=== PATIENT | female | born 1940 | race Caucasian/White ===

== ENCOUNTER → 2016-10-16 | Outpatient (RCR) | payer MEDICARE, MEDICAID ==
[~2016-10-16] MED LIST: ALLO100T PO; ASPI81TA PO; CALC1CAP31 PO; CALCTAB68 PO; CITA20TA4 PO; FERR325T PO; FURO40TA2 PO; LEVO75TA34 PO; LORA10TA2 PO; METO25TA74 PO; NEXI40CA PO; NIAC1TAB PO; POTA20TA PO; SIMV20TA2 PO; SITA50TAB PO; SYMB80INH INH; WARF-58 PO; ZONI25CA2 PO
== END ==
LOC: M PT 09:04
PROVIDERS: ATTEND Nurse Practitioner Adult Health
DX: Z51.89 Encounter for other specified aftercare (principal); M25.551 Pain in right hip; R26.81 Unsteadiness on feet; M79.651 Pain in right thigh
CPT/HCPCS: 97162; G8978; G8979

== ENCOUNTER → 2016-10-29 | Outpatient (REF) | payer MEDICARE, MEDICAID | END | disposition home or self-care (01) | LOC: M LAB REF 17:45 | PROVIDERS: ATTEND Internal Medicine Nephrology | DX: N39.0 Urinary tract infection, site not specified (principal) ==

== ENCOUNTER 2016-11-12 09:13 | Outpatient (RCR) | payer MEDICARE, MEDICAID | END 2016-11-13 | LOC: M PT 09:13 | PROVIDERS: ATTEND Nurse Practitioner Adult Health | DX: Z51.89 Encounter for other specified aftercare (principal); M79.651 Pain in right thigh; M25.551 Pain in right hip; R26.81 Unsteadiness on feet | CPT/HCPCS: 97110; G8978; G8979 ==

== ENCOUNTER 2016-11-22 09:15 | Outpatient (RCR) | payer MEDICARE, MEDICAID | END 2016-12-14 | LOC: M PT 09:15 | PROVIDERS: ATTEND Nurse Practitioner Adult Health | DX: Z51.89 Encounter for other specified aftercare (principal); M79.651 Pain in right thigh; M25.551 Pain in right hip; R26.81 Unsteadiness on feet ==

== ENCOUNTER 2017-06-15 10:55 | Emergency (ER) | payer MEDICARE, MEDICAID ==
[~2017-06-15] VITALS: Ht 154.9 cm; Wt 100.5 kg
[~2017-06-15 10:55] MED LIST changes: -ALBU17IN
[2017-06-15] MEDS ORDERED: ALBU17IN (11:15)
--- NOTE | 2017-06-15 12:36 | REP ---
Chest two views HISTORY: Cough Comparison: 08/08/2016 The lungs are clear. The heart is upper limits of normal in size. The pulmonary vasculature is normal in appearance. The bony structure is intact. IMPRESSION: No acute disease. Signed by Allen Floyd MD 06/15/2017 12:28 P
[2017-06-15 13:23] VITALS: BP 148/74
== END 2017-06-15 13:24 | disposition home or self-care (01) ==
LOC: M ED 10:55
DX: B34.9 Viral infection, unspecified (principal); E11.9 Type 2 diabetes mellitus without complications; I50.9 Heart failure, unspecified; E03.9 Hypothyroidism, unspecified; E55.9 Vitamin D deficiency, unspecified; Z86.73 Personal history of transient ischemic attack (TIA), and cerebral infarction without residual deficits; Z99.3 Dependence on wheelchair; Z79.899 Other long term (current) drug therapy; Z79.82 Long term (current) use of aspirin; Z79.01 Long term (current) use of anticoagulants; Z79.84 Long term (current) use of oral hypoglycemic drugs; Z87.891 Personal history of nicotine dependence

== ENCOUNTER → 2017-06-15 | Outpatient (CLI) | payer MEDICARE, MEDICAID ==
[~2017-06-15] MED LIST changes: +ALBU17IN; +FERR1TAB8 PO; -FERR325T PO; +METO1TAB32 PO; -METO25TA74 PO
[2017-06-15 13:16] LABS: BASO % 0.2 % (0.0-1.0); EOS # 0.3 10^3/uL (0.0-0.50); EOS % 4.4 % (0.0-3.0); IMMATURE GRANULOCYTE % 0.3 % (0-0); LYMPH # 1.5 10^3/uL (1.5-4.5); LYMPH % 23.6 % (24.0-44.0); MEAN CORPUSCULAR HEMOGLOBIN 38.7 pg (27.0-33.0); MEAN CORPUSCULAR HGB CONC 33.7 g/dl (32.0-36.5); MONO # 0.3 10^3/uL (0.0-0.8); MONO % 5.4 % (0.0-5.0); NEUTROPHILS # 4.2 10^3/uL (1.8-7.7); NEUTROPHILS % 66.1 % (36.0-66.0); PLATELET COUNT, AUTOMATED 156 10^3/uL (150-450); RED CELL DISTRIBUTION WIDTH 13.3 % (11.5-14.5); WHITE BLOOD COUNT 6.3 10^3/uL (4.0-10.0)
[2017-06-15 13:25] LABS: MEAN CORPUSCULAR VOLUME 114.9 fl (80.0-96.0)
[2017-06-15 13:26] LABS: ADD MORPHOLOGY? YES
[2017-06-15 13:44] LABS: ALBUMIN 3.4 GM/DL (3.2-5.2); BILIRUBIN,TOTAL 0.7 MG/DL (0.2-1.0); CALCIUM LEVEL 8.9 MG/DL (8.8-10.2); CREATININE FOR GFR 1.06 MG/DL (0.55-1.02); FREE T4 1.37 NG/DL (0.76-1.46); GLOMERULAR FILTRATION RATE 53.7 (>39); POTASSIUM SERUM 4.2 MEQ/L (3.5-5.1); TOTAL PROTEIN 6.8 GM/DL (6.4-8.2)
[2017-06-15 14:52] LABS: ANISOCYTOSIS 2+
== END ==
LOC: M LAB 12:32
PROVIDERS: ATTEND Internal Medicine Cardiovascular Disease
DX: E11.9 Type 2 diabetes mellitus without complications (principal); E03.9 Hypothyroidism, unspecified

== ENCOUNTER 2017-08-29 15:11 | Emergency (ER) | payer MEDICARE, MEDICAID ==
[~2017-08-29] VITALS: Ht 167.6 cm; Wt 99.5 kg
[~2017-08-29 15:11] MED LIST changes: +ALBU17IN
[2017-08-29] MEDS ORDERED: NORCO, ANEXSIA 5/325MG TABLET (HYDROcodone/ACETAMINOPHEN) PO ONE (15:45)
--- NOTE | 2017-08-29 16:56 | REP ---
LEFT KNEE, FIVE VIEWS: Five views of the left knee performed. There is no acute fracture or dislocation. There is mild lateral patellofemoral compartment narrowing with subchondral sclerosis. There is moderately severe medial joint space narrowing with subchondral sclerosis. There is mild to moderate spurring at the margins of the joint. There does appear to be a moderate to large joint effusion. IMPRESSION: Degenerative changes. No acute fracture or dislocation. Large joint effusion. Signed by Holden Ayala MD 08/30/2017 04:54 P
[2017-08-29] MEDS ORDERED: NORCOTAB PO (16:57)
--- NOTE | 2017-08-29 16:57 | REP ---
RIGHT HAND SERIES: Four views of the right hand are performed. There is no acute fracture or dislocation. There is severe narrowing and spurring at the joint between the trapezium and base of first metacarpal with mild lateral subluxation of the base of the first metacarpal. There is mild diffuse narrowing at the metacarpal phalangeal joints. There is moderately severe diffuse narrowing of the proximal and distal interphalangeal joints with mild subchondral sclerosis and moderate spurring. There is an old fracture of the 4th proximal phalanx which has healed. IMPRESSION: Degenerative changes, no acute fracture or dislocation. Signed by Holden Ayala MD 08/30/2017 04:54 P
[2017-08-29 17:26] VITALS: BP 135/61
[2017-08-29] MEDS ORDERED: NORCO 5/325MG TABLET (BULK FOR ED) PO ONE (17:45)
[2017-08-30] MEDS ORDERED: BUSP5TA (16:02)
== END 2017-08-29 18:24 | disposition home or self-care (01) ==
LOC: M ED 15:11
DX: S80.02XA Contusion of left knee, initial encounter (principal); S60.011A Contusion of right thumb without damage to nail, initial encounter; V00.831A Fall from motorized mobility scooter, initial encounter; Y92.410 Unspecified street and highway as the place of occurrence of the external cause; Y93.89 Activity, other specified; Y99.8 Other external cause status; I11.0 Hypertensive heart disease with heart failure; E11.9 Type 2 diabetes mellitus without complications; I50.9 Heart failure, unspecified; G47.30 Sleep apnea, unspecified; Z91.19 Patient's noncompliance with other medical treatment and regimen; Z86.73 Personal history of transient ischemic attack (TIA), and cerebral infarction without residual deficits; Z79.01 Long term (current) use of anticoagulants; Z79.899 Other long term (current) drug therapy; Z79.82 Long term (current) use of aspirin; Z79.84 Long term (current) use of oral hypoglycemic drugs; Z87.891 Personal history of nicotine dependence

== ENCOUNTER 2017-08-30 15:52 | Emergency (ER) | payer MEDICARE, MEDICAID ==
[~2017-08-30] VITALS: Ht 165.1 cm; Wt 99.5 kg
[~2017-08-30 15:52] MED LIST changes: +NORCOTAB PO
[2017-08-30] MEDS ORDERED: BUSP5TA (16:02)
[2017-08-30] MEDS ORDERED: NORCO, ANEXSIA 5/325MG TABLET (HYDROcodone/ACETAMINOPHEN) PO ONE (17:00)
--- NOTE | 2017-08-30 17:15 | REP ---
AP pelvis and left hip: AP pelvis single view: There is no pelvic fracture. There are surgical clips in the left femoral area. The sacroiliac articulations are unremarkable. There are a few phleboliths. Impression: Negative AP pelvis Left hip two views: Comparison is 12/11/2013. There is demineralization. Joint spaces unremarkable. There is no femoral head deformity. No fracture or dislocation. There are surgical clips in the left femoral area. Impression: Negative left hip. Signed by Holden Colby MD 08/30/2017 05:04 P
[2017-08-30 17:23] VITALS: BP 172/72
== END 2017-08-30 18:36 | disposition home or self-care (01) ==
LOC: M ED 15:52
DX: M25.552 Pain in left hip (principal); S80.02XA Contusion of left knee, initial encounter; W01.0XXA Fall on same level from slipping, tripping and stumbling without subsequent striking against object, initial encounter; Y92.410 Unspecified street and highway as the place of occurrence of the external cause; Y93.89 Activity, other specified; Y99.8 Other external cause status; E11.9 Type 2 diabetes mellitus without complications; I11.0 Hypertensive heart disease with heart failure; I50.9 Heart failure, unspecified; J45.909 Unspecified asthma, uncomplicated; E03.9 Hypothyroidism, unspecified; R51 Headache; Z86.73 Personal history of transient ischemic attack (TIA), and cerebral infarction without residual deficits; Z87.440 Personal history of urinary (tract) infections; Z79.899 Other long term (current) drug therapy; Z79.82 Long term (current) use of aspirin; Z79.84 Long term (current) use of oral hypoglycemic drugs; Z79.01 Long term (current) use of anticoagulants

== ENCOUNTER → 2017-09-13 | Outpatient (REF) | payer MEDICARE, MEDICAID ==
[2017-09-17 13:57] LABS: FOLATE 13.2 NG/ML; VITAMIN B12 LEVEL 127 PG/ML
[2017-09-17 13:59] LABS: FERRITIN 241 NG/ML (8-252); PERCENT SATURATION 23.4 % (13.2-45.0); TOTAL IRON BINDING CAPACITY 274 UG/DL (250-450)
== END ==
LOC: M LAB REF 13:14
DX: D64.9 Anemia, unspecified (principal)
CPT/HCPCS: 82746

== ENCOUNTER → 2018-01-28 | Outpatient (CLI) | payer MEDICARE, MEDICAID ==
[2018-01-28 10:38] LABS: BASO % 0.1 % (0.0-1.0); EOS # 0.2 10^3/uL (0.0-0.50); EOS % 2.5 % (0.0-3.0); HEMATOCRIT 35.5 % (36.0-47.0); IMMATURE GRANULOCYTE % 0.3 % (0-3.0); LYMPH # 1.2 10^3/uL (1.5-4.5); LYMPH % 18.2 % (24.0-44.0); MEAN CORPUSCULAR HEMOGLOBIN 39.6 pg (27.0-33.0); MEAN CORPUSCULAR HGB CONC 33.8 g/dl (32.0-36.5); MONO # 0.4 10^3/uL (0.0-0.8); MONO % 5.7 % (0.0-5.0); NEUTROPHILS % 73.2 % (36.0-66.0); PLATELET COUNT, AUTOMATED 166 10^3/uL (150-450); RED BLOOD COUNT 3.03 10^6/uL (4.00-5.40); RED CELL DISTRIBUTION WIDTH 13.2 % (11.5-14.5); WHITE BLOOD COUNT 6.8 10^3/uL (4.0-10.0)
[2018-01-28 10:43] LABS: MEAN CORPUSCULAR VOLUME 117.2 fl (80.0-96.0); POSITIVE MORPH POS FLAG
[2018-01-28 10:52] LABS: ESTIMATED AVERAGE GLUCOSE 126 MG/DL (60-110)
[2018-01-28 11:08] LABS: TOTAL 25(OH) VITAMIN D 39.7 NG/ML (30.0-100.0)
[2018-01-28 11:09] LABS: ALBUMIN 3.6 GM/DL (3.2-5.2); ALBUMIN/GLOBULIN RATIO 0.92 (1.00-1.93); ALKALINE PHOSPHATASE 58 U/L (45-117); ALT/SGPT 13 U/L (12-78); ANION GAP 7 MEQ/L (8-16); AST/SGOT 19 U/L (7-37); BILIRUBIN,TOTAL 0.6 MG/DL (0.2-1.0); BLOOD UREA NITROGEN 31 MG/DL (7-18); CARBON DIOXIDE LEVEL 31 MEQ/L (21-32); CHLORIDE LEVEL 105 MEQ/L (98-107); CHOLESTEROL LEVEL 98 MG/DL (<200); CHOLESTEROL RISK RATIO 2.333 (<5); CREATININE FOR GFR 1.55 MG/DL (0.55-1.30); FERRITIN 154 NG/ML (8-252); FREE T4 1.23 NG/DL (0.76-1.46); GLOMERULAR FILTRATION RATE 34.5 (>39); GLUCOSE, FASTING 94 MG/DL (70-100); HDL CHOLESTEROL 42 MG/DL (>40); IRON (FE) 100 UG/DL (50-170); LDL CHOLESTEROL 31.2 MG/DL (<100); NON-HDL-C 56 MG/DL; PERCENT SATURATION 32.9 % (13.2-45.0); POTASSIUM SERUM 4.4 MEQ/L (3.5-5.1); SODIUM LEVEL 143 MEQ/L (136-145); TOTAL IRON BINDING CAPACITY 304 UG/DL (250-450); TOTAL PROTEIN 7.5 GM/DL (6.4-8.2); TRIGLYCERIDES LEVEL 124 MG/DL (<150)
== END ==
LOC: M LAB 09:15
DX: E03.9 Hypothyroidism, unspecified (principal); E55.9 Vitamin D deficiency, unspecified; E78.00 Pure hypercholesterolemia, unspecified; D64.9 Anemia, unspecified; Z79.01 Long term (current) use of anticoagulants; N81.3 Complete uterovaginal prolapse; Z79.899 Other long term (current) drug therapy; E11.9 Type 2 diabetes mellitus without complications; M10.9 Gout, unspecified; N25.81 Secondary hyperparathyroidism of renal origin
CPT/HCPCS: 83550

== ENCOUNTER → 2018-01-28 | Outpatient (REF) | payer MEDICARE, MEDICAID ==
[2018-01-28 18:52] LABS: URIC ACID 5.5 MG/DL (2.6-6.0)
[2018-01-28 19:24] LABS: PTH INTACT 52.4 PG/ML (18.5-88.0)
== END ==
LOC: M LAB REF 18:29
DX: M10.9 Gout, unspecified (principal); N25.81 Secondary hyperparathyroidism of renal origin

== ENCOUNTER 2018-03-11 18:09 | Inpatient (IN) | payer MEDICARE, MEDICAID ==
[2018-03-11] MEDS: IPRATROPIUM 0.5MG/ALBUTEROL 2.5MG INH SOL UD 3ML (DUONEB)(J7620) NEB (18:58)
[2018-03-11] MEDS: ALBUTEROL SULFATE 2.5 MG/0.5 ML INH NEB SOLN INH (18:59)
[2018-03-11 19:02] LABS: ABG O2 SATURATION 98.4 % (95.0-99.0); ABG PARTIAL PRESSURE CO2 42.9 mmHg (35.0-45.0); ABG PARTIAL PRESSURE O2 119.5 mmHg (75.0-100.0); ABG STANDARD HCO3 25.4 MEQ/L (22.0-26.0); ABG TOTAL CO2 27.3 MEQ/L (23.0-31.0)
[2018-03-11 19:03] LABS: BASO % 0.1 % (0.0-1.0); EOS # 0.1 10^3/uL (0.0-0.50); EOS % 1.1 % (0.0-3.0); HEMATOCRIT 36.9 % (36.0-47.0); HEMOGLOBIN 12.3 g/dl (12.0-15.5); IMMATURE GRANULOCYTE % 0.4 % (0-3.0); LYMPH # 1.3 10^3/uL (1.5-4.5); MEAN CORPUSCULAR HEMOGLOBIN 38.6 pg (27.0-33.0); MEAN CORPUSCULAR HGB CONC 33.3 g/dl (32.0-36.5); MONO # 0.8 10^3/uL (0.0-0.8); MONO % 7.4 % (0.0-5.0); NEUTROPHILS # 7.9 10^3/uL (1.8-7.7); PLATELET COUNT, AUTOMATED 224 10^3/uL (150-450); RED BLOOD COUNT 3.19 10^6/uL (4.00-5.40); WHITE BLOOD COUNT 10.1 10^3/uL (4.0-10.0)
[2018-03-11] MEDS: methylPREDNISolone INJ 125 MG/2 ML VIAL (J2930) IV (19:04)
[2018-03-11 19:06] LABS: ADD MORPHOLOGY? YES; MEAN CORPUSCULAR VOLUME 115.7 fl (80.0-96.0); POSITIVE MORPH POS FLAG
[2018-03-11 19:15] LABS: INR 1.89; PROTHROMBIN TIME 22.3 SECONDS (12.4-14.5)
[2018-03-11 19:31] LABS: LACTIC ACID SEPSIS PROTOCOL 1.2 MMOL/L (0.4-2.0)
[2018-03-11 19:33] LABS: ALBUMIN 3.7 GM/DL (3.2-5.2); ALBUMIN/GLOBULIN RATIO 0.95 (1.00-1.93); ALKALINE PHOSPHATASE 70 U/L (45-117); ALT/SGPT 16 U/L (12-78); ANION GAP 10 MEQ/L (8-16); AST/SGOT 22 U/L (7-37); BILIRUBIN,DIRECT 0.3 MG/DL (0.0-0.2); BILIRUBIN,TOTAL 0.8 MG/DL (0.2-1.0); BLOOD UREA NITROGEN 36 MG/DL (7-18); CALCIUM LEVEL 9.2 MG/DL (8.8-10.2); CARBON DIOXIDE LEVEL 28 MEQ/L (21-32); CHLORIDE LEVEL 104 MEQ/L (98-107); CPK CREATINE PHOSPHOKINASE 56 U/L (26-192); CREATININE FOR GFR 1.86 MG/DL (0.55-1.30); GLUCOSE, FASTING 128 MG/DL (70-100); LIPASE 174 U/L (73-393); POTASSIUM SERUM 4.6 MEQ/L (3.5-5.1); SODIUM LEVEL 142 MEQ/L (136-145); THYROXINE (T4) 15.1 UG/DL (4.5-12.0); TOTAL PROTEIN 7.6 GM/DL (6.4-8.2); TROPONIN I < 0.02 NG/ML (< 0.10)
[2018-03-11 19:39] LABS: CK-MB VALUE MASS < 1.0 NG/ML (<3.6); MB/CK RELATIVE INDEX 1.78 (< OR =4); NT-PRO BNP 621 PG/ML (<450); PLATELET ESTIMATE NORMAL (NORMAL)
[2018-03-11 19:40] LABS: PLATELET CLUMPS SMALL AMT
[2018-03-11] MEDS: HumaLOG INSULIN (NovoLOG) PER UNIT SC (21:00)
[2018-03-11] MEDS: busPIRone 5 MG TAB PO (21:00)
[2018-03-11] MEDS ORDERED: NORCO, ANEXSIA 5/325MG TABLET (HYDROcodone/ACETAMINOPHEN) As Ordered (21:00)
[2018-03-11] MEDS: NIACIN SR (NIASPAN) 500 MG TAB PO (21:00)
[2018-03-11] MEDS: NORCO, ANEXSIA 5/325MG TABLET (HYDROcodone/ACETAMINOPHEN) PO (21:04)
[2018-03-11] MEDS: FUROSEMIDE 40 MG/4 ML VIAL (J1940) IV (21:05)
[2018-03-11] MEDS: ADACEL/BOOSTRIX VACCINE (DIPHTH/PERTUSS/ACELL/TETANUS)0.5ML SYR (90715) IM (21:05)
[2018-03-11] MEDS ORDERED: ISOVUE-370 76% 100ML VIAL (Q9967) As Ordered (21:55)
[2018-03-11] MEDS ORDERED: MORPHINE 4 MG/ML 1ML VIAL/SYRINGE (J2270) IV (23:15)
[2018-03-11] MEDS ORDERED: ACETAMINOPHEN TAB 650MG DOSE (2X325MG) PO (23:15)
[2018-03-11] MEDS ORDERED: DEXTROSE 50% 50 ML SYRINGE IV (23:45)
[2018-03-11] MEDS ORDERED: GLUCOSE 4 GM CHEW TABLET PO (23:45)
[2018-03-11] MEDS ORDERED: GLUCAGON FOR INJ 1 MG VIAL (J1610) SC (23:45)
[2018-03-12] MEDS: SENOKOT S TAB PO ×3 (00:38→21:10)
[2018-03-12] MEDS: DOXYCYCLINE HYCLATE 100 MG TAB PO ×3 (00:38→21:10)
[2018-03-12] MEDS: FERROUS SULFATE 325MG TAB PO ×3 (00:38→21:10)
[2018-03-12] MEDS: SIMVASTATIN 20 MG TAB PO ×2 (00:38→21:10)
[2018-03-12 05:58] LABS: ANION GAP 9 MEQ/L (8-16); BLOOD UREA NITROGEN 37 MG/DL (7-18); CALCIUM LEVEL 9.6 MG/DL (8.8-10.2); CARBON DIOXIDE LEVEL 30 MEQ/L (21-32); CHLORIDE LEVEL 101 MEQ/L (98-107); GLUCOSE, FASTING 190 MG/DL (70-100); POTASSIUM SERUM 4.1 MEQ/L (3.5-5.1); SODIUM LEVEL 140 MEQ/L (136-145)
[2018-03-12] MEDS: methylPREDNISolone INJ 40 MG/1 ML VIAL (J2920) IV ×2 (06:45→18:06)
[2018-03-12] MEDS: LEVOTHYROXINE 100MCG TABLET (0.1MG) PO (06:45)
[2018-03-12] MEDS: IPRATROPIUM 0.5MG/ALBUTEROL 2.5MG INH SOL UD 3ML (DUONEB)(J7620) NEB ×3 (07:38→20:00)
[2018-03-12] MEDS: HumaLOG INSULIN (NovoLOG) PER UNIT SC ×4 (08:43→20:18)
[2018-03-12] MEDS: SITagliptin 50 MG TAB (JANUVIA) PO (08:43)
[2018-03-12] MEDS: busPIRone 5 MG TAB PO ×2 (08:43→21:10)
[2018-03-12] MEDS: RIVAROXABAN 15 MG TAB (XARELTO) PO (08:44)
[2018-03-12] MEDS: CALCITRIOL 0.25 MCG CAP (S0169) PO (08:44)
[2018-03-12] MEDS: ALLOPURINOL 100 MG TAB PO (08:44)
[2018-03-12] MEDS: ASPIRIN 81 MG ENTERIC TAB PO (08:44)
[2018-03-12] MEDS: METOPROLOL TART 25 MG TABLET PO (08:44)
[2018-03-12] MEDS: SPIRONOLACTONE 25 MG TAB PO (08:44)
[2018-03-12] MEDS: CitaloPRAM (CeleXA) 20 MG TAB PO (08:44)
[2018-03-12] MEDS: amLODIPine 5 MG TAB PO (08:45)
[2018-03-12] MEDS: PANTOPRAZOLE 40MG TAB (PROTONIX) PO (08:45)
[2018-03-12] MEDS: LORATADINE 10 MG TAB PO (08:45)
[2018-03-12 10:36] LABS: KETONE, URINE AUTO RFX NEGATIVE (NEGATIVE); LEUKOCYTE ESTERASE UR AUTO RFX NEGATIVE (NEGATIVE); NITRITE, URINE AUTO RFX NEGATIVE (NEGATIVE); RBC, URINE AUTO RFX 0 /HPF (0-3); SPECIFIC GRAVITY UR AUTO RFX 1.021 (1.002-1.035); SQUAM EPITHELIAL CELL UR AURFX 1 /HPF (0-6); WBC, URINE AUTO RFX 0 /HPF (0-3)
[2018-03-12 11:53] LABS: BEDSIDE GLUCOSE 159 MG/DL (83-110)
[2018-03-12] MEDS: ACETAMINOPHEN 500 MG TAB PO ×3 (12:00→23:47)
[2018-03-12 16:55] LABS: BEDSIDE GLUCOSE 196 MG/DL (83-110)
[2018-03-12 20:07] LABS: BEDSIDE GLUCOSE 187 MG/DL (83-110)
[2018-03-12] MEDS: SYMBICORT 80/4.5MCG INHALER 6GM INH (20:34)
[2018-03-12] MEDS: NIACIN SR (NIASPAN) 500 MG TAB PO (21:10)
[2018-03-12] MEDS: PERCOCET 5MG/325MG TAB PO (21:16)
[2018-03-13] MEDS: LEVOTHYROXINE 100MCG TABLET (0.1MG) PO (06:16)
[2018-03-13] MEDS: methylPREDNISolone INJ 40 MG/1 ML VIAL (J2920) IV ×2 (06:16→17:57)
[2018-03-13] MEDS: ACETAMINOPHEN 500 MG TAB PO ×3 (06:17→17:57)
[2018-03-13 06:30] LABS: ANION GAP 11 MEQ/L (8-16); BLOOD UREA NITROGEN 49 MG/DL (7-18); CALCIUM LEVEL 9.3 MG/DL (8.8-10.2); CARBON DIOXIDE LEVEL 29 MEQ/L (21-32); CHLORIDE LEVEL 102 MEQ/L (98-107); CREATININE FOR GFR 1.77 MG/DL (0.55-1.30); GLOMERULAR FILTRATION RATE 29.6 (>39); GLUCOSE, FASTING 151 MG/DL (70-100); POTASSIUM SERUM 4.3 MEQ/L (3.5-5.1); SODIUM LEVEL 142 MEQ/L (136-145)
[2018-03-13 07:38] LABS: HEMATOCRIT 32.9 % (36.0-47.0); HEMOGLOBIN 11.2 g/dl (12.0-15.5); MEAN CORPUSCULAR HEMOGLOBIN 38.8 pg (27.0-33.0); MEAN CORPUSCULAR VOLUME 113.8 fl (80.0-96.0); PLATELET COUNT, AUTOMATED 157 10^3/uL (150-450); RED BLOOD COUNT 2.89 10^6/uL (4.00-5.40); WHITE BLOOD COUNT 12.9 10^3/uL (4.0-10.0)
[2018-03-13 07:40] LABS: C REACTIVE PROTEIN QUANTITATIV 8.45 MG/DL (0.00-0.30)
[2018-03-13] MEDS: IPRATROPIUM 0.5MG/ALBUTEROL 2.5MG INH SOL UD 3ML (DUONEB)(J7620) NEB ×3 (08:00→20:00)
[2018-03-13] MEDS: RIVAROXABAN 15 MG TAB (XARELTO) PO (08:46)
[2018-03-13] MEDS: amLODIPine 5 MG TAB PO (08:46)
[2018-03-13] MEDS: ASPIRIN 81 MG ENTERIC TAB PO (08:46)
[2018-03-13] MEDS: PANTOPRAZOLE 40MG TAB (PROTONIX) PO (08:46)
[2018-03-13] MEDS: SPIRONOLACTONE 25 MG TAB PO (08:46)
[2018-03-13] MEDS: ALLOPURINOL 100 MG TAB PO (08:47)
[2018-03-13] MEDS: SITagliptin 50 MG TAB (JANUVIA) PO (08:47)
[2018-03-13] MEDS: SENOKOT S TAB PO ×2 (08:47→21:13)
[2018-03-13] MEDS: DOXYCYCLINE HYCLATE 100 MG TAB PO ×2 (08:47→21:13)
[2018-03-13] MEDS: CitaloPRAM (CeleXA) 20 MG TAB PO (08:47)
[2018-03-13] MEDS: busPIRone 5 MG TAB PO ×2 (08:47→21:13)
[2018-03-13] MEDS: CALCITRIOL 0.25 MCG CAP (S0169) PO (08:47)
[2018-03-13] MEDS: METOPROLOL TART 25 MG TABLET PO (08:47)
[2018-03-13] MEDS: LORATADINE 10 MG TAB PO (08:47)
[2018-03-13] MEDS: FERROUS SULFATE 325MG TAB PO ×2 (08:47→21:13)
[2018-03-13] MEDS: HumaLOG INSULIN (NovoLOG) PER UNIT SC ×4 (08:48→21:00)
[2018-03-13 09:11] LABS: ERYTHROCYTE SEDIMENTATION RATE 67 mm/hr (0-30)
[2018-03-13] MEDS: SYMBICORT 80/4.5MCG INHALER 6GM INH ×2 (09:20→21:31)
[2018-03-13 11:41] LABS: BEDSIDE GLUCOSE 281 MG/DL (83-110)
[2018-03-13 16:59] LABS: BEDSIDE GLUCOSE 131 MG/DL (83-110)
[2018-03-13 20:07] LABS: BEDSIDE GLUCOSE 147 MG/DL (83-110)
[2018-03-13] MEDS: NIACIN SR (NIASPAN) 500 MG TAB PO (21:13)
[2018-03-13] MEDS: SIMVASTATIN 20 MG TAB PO (21:13)
[2018-03-14 05:49] LABS: HEMATOCRIT 31.6 % (36.0-47.0); HEMOGLOBIN 10.9 g/dl (12.0-15.5); MEAN CORPUSCULAR HEMOGLOBIN 38.9 pg (27.0-33.0); MEAN CORPUSCULAR HGB CONC 34.5 g/dl (32.0-36.5); MEAN CORPUSCULAR VOLUME 112.9 fl (80.0-96.0); PLATELET COUNT, AUTOMATED 192 10^3/uL (150-450); WHITE BLOOD COUNT 9.9 10^3/uL (4.0-10.0)
[2018-03-14 06:05] LABS: ANION GAP 7 MEQ/L (8-16); BLOOD UREA NITROGEN 59 MG/DL (7-18); CALCIUM LEVEL 9.2 MG/DL (8.8-10.2); CARBON DIOXIDE LEVEL 30 MEQ/L (21-32); CHLORIDE LEVEL 104 MEQ/L (98-107); CREATININE FOR GFR 1.84 MG/DL (0.55-1.30); GLOMERULAR FILTRATION RATE 28.3 (>39); GLUCOSE, FASTING 145 MG/DL (70-100); POTASSIUM SERUM 4.4 MEQ/L (3.5-5.1); SODIUM LEVEL 141 MEQ/L (136-145)
[2018-03-14] MEDS: LEVOTHYROXINE 100MCG TABLET (0.1MG) PO (06:23)
[2018-03-14] MEDS: ACETAMINOPHEN 500 MG TAB PO ×3 (06:23→12:11)
[2018-03-14] MEDS: methylPREDNISolone INJ 40 MG/1 ML VIAL (J2920) IV (06:23)
[2018-03-14] MEDS: DOXYCYCLINE HYCLATE 100 MG TAB PO (08:04)
[2018-03-14] MEDS: METOPROLOL TART 25 MG TABLET PO (08:04)
[2018-03-14] MEDS: SENOKOT S TAB PO (08:04)
[2018-03-14] MEDS: ASPIRIN 81 MG ENTERIC TAB PO (08:04)
[2018-03-14] MEDS: amLODIPine 5 MG TAB PO (08:04)
[2018-03-14] MEDS: CALCITRIOL 0.25 MCG CAP (S0169) PO (08:04)
[2018-03-14] MEDS: ALLOPURINOL 100 MG TAB PO (08:04)
[2018-03-14] MEDS: SPIRONOLACTONE 25 MG TAB PO (08:05)
[2018-03-14] MEDS: PANTOPRAZOLE 40MG TAB (PROTONIX) PO (08:05)
[2018-03-14] MEDS: RIVAROXABAN 15 MG TAB (XARELTO) PO (08:05)
[2018-03-14] MEDS: busPIRone 5 MG TAB PO (08:05)
[2018-03-14] MEDS: SITagliptin 50 MG TAB (JANUVIA) PO (08:05)
[2018-03-14] MEDS: CitaloPRAM (CeleXA) 20 MG TAB PO (08:05)
[2018-03-14] MEDS: LORATADINE 10 MG TAB PO (08:05)
[2018-03-14] MEDS: FERROUS SULFATE 325MG TAB PO (08:05)
[2018-03-14] MEDS: HumaLOG INSULIN (NovoLOG) PER UNIT SC ×2 (08:06→12:06)
[2018-03-14] MEDS: SYMBICORT 80/4.5MCG INHALER 6GM INH (08:15)
[2018-03-14] MEDS: IPRATROPIUM 0.5MG/ALBUTEROL 2.5MG INH SOL UD 3ML (DUONEB)(J7620) NEB ×2 (08:16→12:58)
[2018-03-14 11:27] LABS: BEDSIDE GLUCOSE 135 MG/DL (83-110)
== END 2018-03-14 14:23 | disposition home health service (06) | DRG 190 ==
LOC: M MSPAV 03-12 00:08 → M ED 18:09 → M ED INP 23:15
DX: J44.1 Chronic obstructive pulmonary disease with (acute) exacerbation (principal); J18.9 Pneumonia, unspecified organism; I50.32 Chronic diastolic (congestive) heart failure; I13.0 Hypertensive heart and chronic kidney disease with heart failure and stage 1 through stage 4 chronic kidney disease, or unspecified chronic kidney disease; Z68.41 Body mass index [BMI] 40.0-44.9, adult; M10.9 Gout, unspecified; M94.0 Chondrocostal junction syndrome [Tietze]; J44.0 Chronic obstructive pulmonary disease with (acute) lower respiratory infection; D50.9 Iron deficiency anemia, unspecified; E03.9 Hypothyroidism, unspecified; J30.9 Allergic rhinitis, unspecified; N18.3 Chronic kidney disease, stage 3 (moderate); E11.22 Type 2 diabetes mellitus with diabetic chronic kidney disease; E66.9 Obesity, unspecified; E78.5 Hyperlipidemia, unspecified; Z86.73 Personal history of transient ischemic attack (TIA), and cerebral infarction without residual deficits; Z95.820 Peripheral vascular angioplasty status with implants and grafts; Z90.710 Acquired absence of both cervix and uterus; Z87.891 Personal history of nicotine dependence; Z79.82 Long term (current) use of aspirin; Z79.84 Long term (current) use of oral hypoglycemic drugs; Z79.01 Long term (current) use of anticoagulants; Z79.899 Other long term (current) drug therapy

== ENCOUNTER → 2018-03-31 | Outpatient (REF) | payer MEDICARE, MEDICAID ==
[2018-04-01 14:31] LABS: FERRITIN 155 NG/ML (8-252); IRON (FE) 62 UG/DL (50-170); PERCENT SATURATION 24.7 % (13.2-45.0); TOTAL IRON BINDING CAPACITY 251 UG/DL (250-450)
== END ==
LOC: M LAB REF 13:47
DX: N18.3 Chronic kidney disease, stage 3 (moderate) (principal); D64.9 Anemia, unspecified
CPT/HCPCS: 83550

== ENCOUNTER 2018-04-06 13:16 | Emergency (ER) | payer MEDICARE, MEDICAID ==
[2018-04-06 14:27] LABS: HEMATOCRIT 33.8 % (36.0-47.0); HEMOGLOBIN 11.1 g/dl (12.0-15.5); MEAN CORPUSCULAR HEMOGLOBIN 38.4 pg (27.0-33.0); MEAN CORPUSCULAR HGB CONC 32.8 g/dl (32.0-36.5); PLATELET COUNT, AUTOMATED 232 10^3/uL (150-450); RED BLOOD COUNT 2.89 10^6/uL (4.00-5.40); RED CELL DISTRIBUTION WIDTH 12.7 % (11.5-14.5)
[2018-04-06 14:34] LABS: ANION GAP 8 MEQ/L (8-16); BLOOD UREA NITROGEN 35 MG/DL (7-18); CALCIUM LEVEL 9.8 MG/DL (8.8-10.2); CARBON DIOXIDE LEVEL 31 MEQ/L (21-32); CHLORIDE LEVEL 103 MEQ/L (98-107); CREATININE FOR GFR 1.91 MG/DL (0.55-1.30); GLOMERULAR FILTRATION RATE 27.1 (>39); GLUCOSE, FASTING 103 MG/DL (70-100); POTASSIUM SERUM 3.4 MEQ/L (3.5-5.1); SODIUM LEVEL 142 MEQ/L (136-145)
[2018-04-06 14:41] LABS: POSITIVE MORPH POS FLAG
[2018-04-06] MEDS: CLINDAMYCIN 150 MG CAP PO (15:34)
== END 2018-04-06 15:36 | disposition home or self-care (01) ==
LOC: M ED 13:16
DX: L03.116 Cellulitis of left lower limb (principal); E11.9 Type 2 diabetes mellitus without complications; I10 Essential (primary) hypertension; Z79.899 Other long term (current) drug therapy; Z79.2 Long term (current) use of antibiotics; Z79.82 Long term (current) use of aspirin; Z79.01 Long term (current) use of anticoagulants
CPT/HCPCS: 80048

== ENCOUNTER → 2018-09-12 | Outpatient (REF) | payer MEDICARE, MEDICAID ==
[~2018-09-12] MED LIST changes: +AMLO5TAB6 PO; +ASPI81CH40 PO; -ASPI81TA PO; +ASPI81TAEC PO; +BUSP5TA; +BUSP5TA PO; +CLEO300C2 PO; +DOXY100T PO; +FLON1SPR; +FURO20TA2 PO; +JANU100T PO; +KLOR20TA42 PO; +LORA-243 PO; -LORA10TA2 PO; +METO1TAB87 PO; -NIAC1TAB PO; +NIAC500T64 PO; -POTA20TA PO; +PRED10TA2 PO; +ROCA0.5C PO; +SPIR-10 PO; +SYNT100T PO; +XARE15TA PO
== END ==
LOC: M LAB REF 16:59
PROVIDERS: ATTEND Internal Medicine Nephrology
DX: N39.0 Urinary tract infection, site not specified (principal)

== ENCOUNTER 2018-10-18 12:49 | Emergency (ER) | payer MEDICARE, MEDICAID ==
[~2018-10-18] VITALS: Ht 157.5 cm; Wt 97.3 kg
[2018-10-18 14:00] LABS: HEMOGLOBIN 12.4 g/dl (12.0-15.5); MEAN CORPUSCULAR HEMOGLOBIN 35.4 pg (27.0-33.0); MEAN CORPUSCULAR HGB CONC 32.6 g/dl (32.0-36.5); MEAN CORPUSCULAR VOLUME 108.6 fl (80.0-96.0); PLATELET COUNT, AUTOMATED 299 10^3/uL (150-450); WHITE BLOOD COUNT 13.9 10^3/uL (4.0-10.0)
[2018-10-18] MEDS ORDERED: CYCLOBENZAPRINE 5MG TABLET PO ONE (14:00)
[2018-10-18 14:16] LABS: INR 2.03; PROTHROMBIN TIME 23.3 SECONDS (12.1-14.4)
[2018-10-18 14:17] LABS: PARTIAL THROMBOPLASTIN TIME 48.4 SECONDS (25.4-37.6)
--- NOTE | 2018-10-18 14:17 | REP ---
Clinical: Headache. Neck pain. Comparison: 03/11/2018 . Findings: The ventricles, sulci, and cisterns are normal in position and appearance. Ayala-white differentiation is maintained. No acute intracranial hemorrhage, mass/mass effect, pathology or trauma/injury. No evidence for acute infarction. No extra-axial fluid collection. Calvarium is intact. Paranasal sinuses and mastoid air cells are clear. Impression: No evidence for acute intracranial pathology or trauma/injury. Electronically Signed by Denny King MD 10/18/2018 02:08 P
[2018-10-18 14:22] LABS: ALBUMIN 3.3 GM/DL (3.2-5.2); BILIRUBIN,TOTAL 0.7 MG/DL (0.2-1.0); CALCIUM LEVEL 9.6 MG/DL (8.8-10.2); CREATININE FOR GFR 1.42 MG/DL (0.55-1.30); GLOMERULAR FILTRATION RATE 38.1 (>39); POTASSIUM SERUM 4.3 MEQ/L (3.5-5.1); TOTAL PROTEIN 7.9 GM/DL (6.4-8.2)
--- NOTE | 2018-10-18 14:22 | REP ---
Clinical: Neck pain. Technique: Axial noncontrast images from the skull base to the thoracic inlet with coronal and sagittal re-formations. Comparison: 08/08/2016. Findings: Alignment and lordosis maintained. No acute fracture / compression injury or subluxation identified. Age-related osteopenia and advanced multilevel degenerative disc osteophyte complexes are appreciated including anterior and posterior osteophytosis, endplate sclerosis/irregularity with disc space narrowing and uncovertebral hypertrophy. Posterior disc bulges cannot definitively be evaluated. Impression: 1. No acute fracture / compression injury or subluxation. 2. Advanced multilevel degenerative spondylosis with findings relatively similar to 08/08/2016. Electronically Signed by Denny King MD 10/18/2018 02:13 P
[2018-10-18] MEDS ORDERED: NORCO, ANEXSIA 5/325MG TABLET (HYDROcodone/ACETAMINOPHEN) PO ONE (15:15)
[2018-10-18] MEDS ORDERED: NORC1TAB4 PO (16:34)
[2018-10-18] MEDS ORDERED: CYCL5TAB PO (16:34)
[2018-10-18 16:45] VITALS: BP 128/61
== END 2018-10-18 16:46 | disposition home or self-care (01) ==
LOC: M ED 12:49
DX: M62.838 Other muscle spasm (principal); E11.9 Type 2 diabetes mellitus without complications; I11.0 Hypertensive heart disease with heart failure; I50.9 Heart failure, unspecified; N18.3 Chronic kidney disease, stage 3 (moderate); E78.5 Hyperlipidemia, unspecified; Z79.899 Other long term (current) drug therapy; Z79.890 Hormone replacement therapy; Z79.82 Long term (current) use of aspirin; Z87.891 Personal history of nicotine dependence

== ENCOUNTER → 2018-12-29 | Outpatient (REF) | payer MEDICARE, MEDICAID, OTHER ==
[~2018-12-29] MED LIST changes: +ASPI81CH36 PO; -ASPI81CH40 PO; -CITA20TA4 PO; +CITA20TA6 PO; +CYCL5TAB PO; +HYDR-3715 PO; +NORC1TAB7 PO; -NORCOTAB PO
[2018-12-29 09:48] LABS: BASO % 0.2 % (0.0-1.0); EOS # 0.3 10^3/uL (0.0-0.50); EOS % 2.8 % (0.0-3.0); HEMATOCRIT 39.3 % (36.0-47.0); HEMOGLOBIN 12.4 g/dl (12.0-15.5); LYMPH # 1.7 10^3/uL (1.5-4.5); MEAN CORPUSCULAR HEMOGLOBIN 34.3 pg (27.0-33.0); MEAN CORPUSCULAR HGB CONC 31.6 g/dl (32.0-36.5); MEAN CORPUSCULAR VOLUME 108.6 fl (80.0-96.0); MONO # 0.7 10^3/uL (0.0-0.8); MONO % 7.1 % (0.0-5.0); NEUTROPHILS # 6.8 10^3/uL (1.8-7.7); NEUTROPHILS % 71.7 % (36.0-66.0); PLATELET COUNT, AUTOMATED 261 10^3/uL (150-450); RED BLOOD COUNT 3.62 10^6/uL (4.00-5.40); WHITE BLOOD COUNT 9.5 10^3/uL (4.0-10.0)
[2018-12-29 10:19] LABS: HEMOGLOBIN A1c 6.3 %
[2018-12-29 10:21] LABS: ALBUMIN 3.5 GM/DL (3.2-5.2); BILIRUBIN,TOTAL 0.6 MG/DL (0.2-1.0); CALCIUM LEVEL 9.2 MG/DL (8.8-10.2); CHOLESTEROL RISK RATIO 3.085 (<5); CREATININE FOR GFR 1.41 MG/DL (0.55-1.30); FREE T4 1.14 NG/DL (0.76-1.46); GLOMERULAR FILTRATION RATE 38.4 (>39); POTASSIUM SERUM 4.5 MEQ/L (3.5-5.1); THYROID STIMULATING HORMONE 0.664 uIU/ML (0.358-3.740); TOTAL PROTEIN 7.1 GM/DL (6.4-8.2)
== END ==
LOC: SKLABADC 08:39
PROVIDERS: ATTEND Physician Assistant Medical
DX: E78.2 Mixed hyperlipidemia (principal); E11.9 Type 2 diabetes mellitus without complications; R53.83 Other fatigue; I10 Essential (primary) hypertension; E03.9 Hypothyroidism, unspecified

== ENCOUNTER → 2019-02-26 | Outpatient (CLI) | payer MEDICARE, MEDICAID, OTHER ==
[~2019-02-26] MED LIST changes: +ISOVUE-370 76% 100ML VIAL (Q9967) As Ordered ONE
--- NOTE | 2019-02-26 16:20 | REP ---
CT ANGIO NECK: HISTORY: Carotid stenosis. CONTRAST: [id number], 75 mL Calcified atherosclerotic plaque is present at the origin of the right internal carotid artery. There is moderate stenosis of 60% of the right internal carotid artery at its origin. There is moderate stenosis of 65% of the right internal carotid artery, 1.6 cm from its origin. The origin of the right external carotid artery is normal. Calcified atherosclerotic plaques are present at the origins of the left external and internal carotid arteries. There is severe stenosis of 90% of the left internal carotid artery at its origin. The left internal carotid artery is markedly decreased in caliber throughout its course to the level of the cavernous sinus. There is mild stenosis of 20% of the left external carotid artery at its origin. Calcified atherosclerotic plaques are present in the cavernous internal carotid arteries. These produce mild to moderate stenosis. The vertebral arteries are patent. The left vertebral artery is dominant. A calcified atherosclerotic plaque is present in the distal left vertebral artery at the level of the foramen magnum. This produces mild stenosis. Calcified atherosclerotic plaques are present at the origins of the great vessels. These produce mild stenosis. A retention cyst is present in the right maxillary sinus. IMPRESSION: 1. Moderate stenosis of 60% of the right internal carotid artery at its origin. There is moderate stenosis of 65% of the right internal carotid artery 1.6 cm from its origin. 2. Severe stenosis of 90% of the left internal carotid artery at its origin. The left internal carotid artery is markedly decreased throughout his caliber to the level of the cavernous sinus. Electronically Signed by Allen Floyd MD 02/26/2019 04:27 P
== END ==
LOC: M RAD 14:48
PROVIDERS: ATTEND Surgery Vascular Surgery
DX: I65.23 Occlusion and stenosis of bilateral carotid arteries (principal)
CPT/HCPCS: 70498; Q9967

== ENCOUNTER 2019-05-11 14:30 | Emergency (ER) | payer MEDICARE, MEDICAID ==
[~2019-05-11] VITALS: Ht 157.5 cm; Wt 91.8 kg
[~2019-05-11 14:30] MED LIST changes: -ISOVUE-370 76% 100ML VIAL (Q9967) As Ordered ONE
[2019-05-11 17:38] LABS: BASO % 0.2 % (0.0-1.0); EOS # 0.3 10^3/uL (0.0-0.50); EOS % 2.7 % (0.0-3.0); HEMATOCRIT 36.4 % (36.0-47.0); HEMOGLOBIN 11.9 g/dl (12.0-15.5); LYMPH # 1.3 10^3/uL (1.5-4.5); LYMPH % 14.6 % (24.0-44.0); MEAN CORPUSCULAR HEMOGLOBIN 35.6 pg (27.0-33.0); MEAN CORPUSCULAR HGB CONC 32.7 g/dl (32.0-36.5); MONO # 0.9 10^3/uL (0.0-0.8); MONO % 9.6 % (0.0-5.0); NEUTROPHILS # 6.7 10^3/uL (1.8-7.7); NEUTROPHILS % 72.7 % (36.0-66.0); PLATELET COUNT, AUTOMATED 241 10^3/uL (150-450); RED BLOOD COUNT 3.34 10^6/uL (4.00-5.40); WHITE BLOOD COUNT 9.2 10^3/uL (4.0-10.0)
[2019-05-11] MEDS ORDERED: AUGM500T34 PO (19:12)
[2019-05-11] MEDS ORDERED: AUGMENTIN 500 MG TAB PO ONE (19:30)
[2019-05-11 19:32] VITALS: BP 136/72
== END 2019-05-11 19:40 | disposition home or self-care (01) ==
LOC: M ED 14:30
DX: N39.0 Urinary tract infection, site not specified (principal); N18.3 Chronic kidney disease, stage 3 (moderate); M54.5 Low back pain; I50.9 Heart failure, unspecified; E11.9 Type 2 diabetes mellitus without complications; I10 Essential (primary) hypertension; E78.5 Hyperlipidemia, unspecified; Z86.73 Personal history of transient ischemic attack (TIA), and cerebral infarction without residual deficits; E03.9 Hypothyroidism, unspecified; F32.9 Major depressive disorder, single episode, unspecified; J44.9 Chronic obstructive pulmonary disease, unspecified; I25.10 Atherosclerotic heart disease of native coronary artery without angina pectoris; Z87.891 Personal history of nicotine dependence; Z82.49 Family history of ischemic heart disease and other diseases of the circulatory system; Z79.82 Long term (current) use of aspirin; Z79.01 Long term (current) use of anticoagulants; Z79.899 Other long term (current) drug therapy; Z91.041 Radiographic dye allergy status

== ENCOUNTER → 2019-06-02 | Outpatient (REF) | payer MEDICARE, MEDICAID, OTHER ==
[~2019-06-02] MED LIST changes: +AUGM500T34 PO
== END ==
LOC: M LAB REF 12:55
PROVIDERS: ATTEND Internal Medicine Nephrology
DX: N39.0 Urinary tract infection, site not specified (principal)

== ENCOUNTER → 2019-09-02 | Outpatient (REF) | payer MEDICARE, MEDICAID, OTHER ==
[~2019-09-02] MED LIST changes: -SIMV20TA2 PO; +SIMV20TA22 PO
== END ==
LOC: M LAB REF 16:49
PROVIDERS: ATTEND Nurse Practitioner Family
DX: N39.0 Urinary tract infection, site not specified (principal)

== ENCOUNTER → 2020-11-30 | Outpatient (REF) | payer MEDICARE, MEDICAID ==
[~2020-11-30] MED LIST changes: +AMLO1TAB24 PO; -AMLO5TAB6 PO; +ASPI-569 PO; +ASPI81CH32 PO; -ASPI81CH36 PO; -ASPI81TAEC PO; +ZONI25CA13 PO; -ZONI25CA2 PO
[2020-11-30 18:29] LABS: PERCENT SATURATION 12.5 % (13.2-45.0)
[2020-11-30 18:37] LABS: FOLATE 13.9 NG/ML
== END ==
LOC: M LAB REF 16:36
PROVIDERS: ATTEND Nurse Practitioner Family
DX: D50.9 Iron deficiency anemia, unspecified (principal); D64.9 Anemia, unspecified

== ENCOUNTER → 2020-12-08 | Outpatient (REF) | payer MEDICARE, MEDICAID | LOC: M LAB REF 14:13 | PROVIDERS: ATTEND Nurse Practitioner Family | DX: D50.9 Iron deficiency anemia, unspecified (principal) ==

== ENCOUNTER → 2021-06-06 | Outpatient (REF) | payer MEDICARE, MEDICAID ==
[~2021-06-06] MED LIST changes: -KLOR20TA42 PO; +POTA-141 PO
== END ==
LOC: M LAB REF 17:14
PROVIDERS: ATTEND Nurse Practitioner Family
DX: E83.42 Hypomagnesemia (principal)

== ENCOUNTER → 2021-06-14 | Outpatient (CLI) | payer MEDICARE, MEDICAID ==
--- NOTE | 2021-06-14 12:17 | REP ---
INDICATION: PAIN COMPARISON: 04/10/2011 TECHNIQUE: AP, lateral, and sunrise view FINDINGS: There is tricompartmental marginal osteophytosis and tricompartmental narrowing particularly affecting the lateral compartment where there is subchondral sclerosis and cortical irregularity. This has increased from the prior exam. 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 Limited three-view exam showing no evidence of an acute fracture, dislocation, or subluxation. IMPRESSION: Advanced chronic changes as described above. <Electronically signed by Nathanael Fernandez > 06/14/21 [id number]
== END ==
LOC: M WUC 10:52
PROVIDERS: ATTEND Physician Assistant Medical
DX: M25.561 Pain in right knee (principal)

== ENCOUNTER → 2021-10-12 | Outpatient (REF) | payer MEDICARE, MEDICAID | LOC: M LAB REF 12:54 | PROVIDERS: ATTEND Nurse Practitioner Family | DX: D50.9 Iron deficiency anemia, unspecified (principal); E83.42 Hypomagnesemia ==

== ENCOUNTER → 2022-01-24 | Outpatient (CLI) | payer MEDICARE, MEDICAID ==
[2022-01-24 16:50] LABS: CREATININE FOR GFR 1.47 MG/DL (0.55-1.30); GLOMERULAR FILTRATION RATE 36.3 (>32)
== END ==
LOC: M WUC 14:38
PROVIDERS: ATTEND Surgery Vascular Surgery
DX: Z01.818 Encounter for other preprocedural examination (principal); I65.23 Occlusion and stenosis of bilateral carotid arteries; D69.8 Other specified hemorrhagic conditions

== ENCOUNTER → 2022-01-29 | Outpatient (CLI) | payer MEDICARE, MEDICAID ==
[~2022-01-29] MED LIST changes: +ISOVUE-370 76% 100ML VIAL As Ordered ONE
== END ==
LOC: M RAD 09:53
PROVIDERS: ATTEND Surgery Vascular Surgery
DX: I65.23 Occlusion and stenosis of bilateral carotid arteries (principal)
CPT/HCPCS: 70498; Q9967

== ENCOUNTER 2022-03-22 15:04 | Inpatient (IN) | payer MEDICAID, MEDICARE ==
[~2022-03-22] VITALS: Ht 157.5 cm; Wt 79.1 kg
[~2022-03-22 15:04] MED LIST changes: -ISOVUE-370 76% 100ML VIAL As Ordered ONE
[2022-03-22] MEDS ORDERED: ACET-910 PO (16:15)
[2022-03-22] MEDS ORDERED: CLOP75TA2 PO (16:15)
[2022-03-22 18:57] LABS: BASO % 0.2 % (0.0-1.0); EOS # 0.1 10^3/uL (0.0-0.5); EOS % 0.7 % (0.0-3.0); LYMPH # 0.7 10^3/uL (1.5-5.0); LYMPH % 7.7 % (24.0-44.0); MEAN CORPUSCULAR HEMOGLOBIN 33.9 pg (27.0-33.0); MEAN CORPUSCULAR HGB CONC 31.3 g/dl (32.0-36.5); MEAN CORPUSCULAR VOLUME 108.5 fl (80.0-96.0); MONO % 10.3 % (2.0-8.0); NEUTROPHILS # 7.7 10^3/uL (1.5-8.5); NEUTROPHILS % 80.4 % (36.0-66.0); PLATELET COUNT, AUTOMATED 299 10^3/uL (150-450); RED BLOOD COUNT 2.95 10^6/uL (4.00-5.40); WHITE BLOOD COUNT 9.6 10^3/uL (4.0-10.0)
[2022-03-22 19:16] LABS: C REACTIVE PROTEIN QUANTITATIV 11.9 MG/DL (0.00-0.30); URIC ACID 4.4 MG/DL (2.6-6.0)
[2022-03-22 19:45] LABS: ERYTHROCYTE SEDIMENTATION RATE 69 mm/hr (0-30)
[2022-03-22] MEDS ORDERED: LIDOCAINE 2% MDV 20ML VIAL SC ONE (20:20)
[2022-03-22 21:03] LABS: CRYSTALS, BODY FLUID NONE SEEN (NONE SEEN); SOURCE, BODY FLUID CRYSTALS RT KNEE
[2022-03-22 21:52] LABS: SOURCE, BODY FLUID RT KNEE; SYNOVIAL FLUID COLOR RED (COLORLESS)
[2022-03-22 22:02] LABS: SOURCE, BODY FLUID GLUCOSE RT KNEE; SOURCE, BODY FLUID URIC ACID RT KNEE; URIC ACID, BODY FLUID 6.2 MG/DL (NOT ESTABLISHED)
[2022-03-22] MEDS ORDERED: methylPREDNISolone 125MG 2ML VIAL IV STA (23:31)
[2022-03-22] MEDS ORDERED: NS 1,000 ML IV SCH (23:50)
[2022-03-22] MEDS ORDERED: PLAV1TAB2 PO (23:55)
[2022-03-22] MEDS ORDERED: FURO20TA2 PO (23:55)
[2022-03-22] MEDS ORDERED: HYDR-4571 PO (23:55)
[2022-03-22] MEDS ORDERED: OXYB5TAB10 PO (23:55)
[2022-03-22] MEDS ORDERED: DEXI60CA2 PO (23:55)
[2022-03-22] MEDS ORDERED: SYNT75TA PO (23:55)
[2022-03-22] MEDS ORDERED: CALCD50TA PO (23:55)
[2022-03-23] VITALS: BP 163/72
[2022-03-23] MEDS ORDERED: HOME MED LIST COMPLETE! XX SCH
[2022-03-23] MEDS ORDERED: VANCOMYCIN HCL 15 MG in IV FLUID PLACE HOLDER 1 EA IV SCH (00:45)
[2022-03-23 00:48] LABS: MAGNESIUM LEVEL 1.9 MG/DL (1.8-2.4)
[2022-03-23] MEDS ORDERED: VANCOMYCIN HCL 750 MG, VIAL MATE ADAPTER 1 EACH in NS 250 ML IV ONE ×2 (01:00→02:00)
[2022-03-23] MEDS: ACETAMINOPHEN TAB 650MG DOSE (2X325MG) PO PRN ×2 (02:09→19:01)
[2022-03-23] MEDS ORDERED: GLUCOSE 4GM CHEW TABLET PO PRN (02:50)
[2022-03-23] MEDS ORDERED: GLUCAGON INJ 1MG VIAL SC PRN (02:50)
[2022-03-23] MEDS ORDERED: DEXTROSE 50% 50 ML SYRINGE IV PRN (02:50)
[2022-03-23] MEDS: LEVOTHYROXINE 75MCG TABLET (0.075MG) PO SCH (05:47)
[2022-03-23 06:00] VITALS: BP 129/50
[2022-03-23] MEDS ORDERED: HYDROMORPHONE HCL 0.5 MG/ 0.5 ML SYRINGE (J1170 PER 1) IV PRN (06:00)
[2022-03-23 07:00] LABS: CALCIUM LEVEL 9.2 MG/DL (8.8-10.2); CREATININE FOR GFR 1.2 MG/DL (0.55-1.30); GLOMERULAR FILTRATION RATE 45.9 (>32); POTASSIUM SERUM 3.6 MEQ/L (3.5-5.1)
[2022-03-23] MEDS: INSULIN LISPRO (NovoLOG) PER UNIT SC SCH ×4 (08:45→21:00)
[2022-03-23] MEDS: ASPIRIN 81MG ENTERIC TABLET PO SCH (08:46)
[2022-03-23] MEDS: busPIRone 5 MG TAB PO SCH ×2 (08:47→22:36)
[2022-03-23] MEDS: PANTOPRAZOLE 40MG TAB (PROTONIX) PO SCH (08:47)
[2022-03-23] MEDS: amLODIPine 5 MG TAB PO SCH (08:47)
[2022-03-23] MEDS: allopurinoL 100 MG TAB PO SCH (08:47)
[2022-03-23] MEDS: CitaloPRAM (CeleXA) 20 MG TAB PO SCH (08:47)
[2022-03-23] MEDS: CALCITRIOL 0.25 MCG CAP (S0169) PO SCH (08:48)
[2022-03-23] MEDS: FERROUS SULFATE 325MG TAB PO SCH (08:48)
[2022-03-23] MEDS: CLOPIDOGREL 75 MG TAB PO SCH (08:49)
[2022-03-23] MEDS: CALCIUM/VITAMIN D 500 MG TAB PO SCH (08:49)
[2022-03-23 14:00] VITALS: BP 133/54
[2022-03-23] MEDS: oxyBUTYnin 5 MG TAB PO SCH (17:05)
[2022-03-23] MEDS: VANCOMYCIN HCL 1,000 MG, VIAL MATE ADAPTER 1 EACH in NS 250 ML IV SCH (19:34)
[2022-03-23 22:00] VITALS: BP 132/52
[2022-03-23] MEDS: SIMVASTATIN 20 MG TAB PO SCH (22:36)
[2022-03-24] VITALS (10 sets, daily range): BP systolic 118–152; BP diastolic 46–67
[2022-03-24] MEDS ORDERED: propofoL 200 MG/20 ML VIAL As Ordered ONE (02:37)
[2022-03-24] MEDS ORDERED: ONDANSETRON 4MG 2ML VIAL As Ordered ONE (02:37)
[2022-03-24] MEDS ORDERED: fentaNYL 100 MCG/2 ML INJECTION As Ordered ONE (02:37)
[2022-03-24] MEDS ORDERED: LIDOCAINE 2% INJ 100 MG/5 ML SYRINGE As Ordered ONE (02:37)
[2022-03-24] MEDS ORDERED: dexameTHASONE 4 MG/ML 1ML VIAL (J1100 PER 1MG) As Ordered ONE (02:37)
[2022-03-24] MEDS ORDERED: MIDAZOLAM INJ 2MG/2ML VIAL (J2250 PER 1MG) As Ordered ONE (02:37)
[2022-03-24] MEDS ORDERED: ETOMIDATE INJ 20MG/10ML VIAL As Ordered ONE (02:37)
[2022-03-24] MEDS ORDERED: ePHEDrine SULFATE 25 MG/5 ML(5MG/ML) SYRINGE As Ordered ONE (02:40)
[2022-03-24] MEDS ORDERED: ACETAMINOPHEN 1000MG 100ML IV BTL (OFIRMEV) (J0131 PER 10MG) As Ordered ONE (03:12)
[2022-03-24] MEDS ORDERED: BUPIVACAINE LIPOSOME/PF 1.3% 20ML VIAL (13.3MG/ML)(EXPAREL) As Ordered ONE (03:25)
[2022-03-24] MEDS ORDERED: BUPIVACAINE HCL 0.25% 30ML VIAL As Ordered ONE (03:25)
[2022-03-24] MEDS ORDERED: oxyCODONE 5MG TAB PO PRN (04:05)
[2022-03-24] MEDS ORDERED: fentaNYL 100 MCG/2 ML INJECTION IV PRN (04:05)
[2022-03-24] MEDS ORDERED: ONDANSETRON 4MG 2ML VIAL IV PRN (04:05)
[2022-03-24] MEDS ORDERED: LR 1,000 ML IV SCH (04:05)
[2022-03-24] MEDS: LR 1,000 ML IV SCH ×2 (04:59→08:01)
[2022-03-24] MEDS: LEVOTHYROXINE 75MCG TABLET (0.075MG) PO SCH (05:02)
[2022-03-24 07:00] LABS: HEMATOCRIT 26.3 % (36.0-47.0); HEMOGLOBIN 8.6 g/dl (12.0-15.5); MEAN CORPUSCULAR HGB CONC 32.7 g/dl (32.0-36.5); MEAN CORPUSCULAR VOLUME 106.9 fl (80.0-96.0); PLATELET COUNT, AUTOMATED 257 10^3/uL (150-450); RED BLOOD COUNT 2.46 10^6/uL (4.00-5.40); WHITE BLOOD COUNT 8.5 10^3/uL (4.0-10.0)
[2022-03-24 07:21] LABS: BLOOD UREA NITROGEN 29 MG/DL (7-18); CALCIUM LEVEL 8.7 MG/DL (8.8-10.2); CARBON DIOXIDE LEVEL 25 MEQ/L (21-32); CHLORIDE LEVEL 106 MEQ/L (98-107); CREATININE FOR GFR 1.14 MG/DL (0.55-1.30); GLOMERULAR FILTRATION RATE 48.7 (>32); GLUCOSE, FASTING 131 MG/DL (70-100); RHEUMATOID FACTOR QUANT < 10.0 IU/ML (<15.0); SODIUM LEVEL 140 MEQ/L (136-145)
[2022-03-24] MEDS: INSULIN LISPRO (NovoLOG) PER UNIT SC SCH ×4 (07:58→21:00)
[2022-03-24] MEDS: ASPIRIN 81MG ENTERIC TABLET PO SCH (07:58)
[2022-03-24] MEDS: FERROUS SULFATE 325MG TAB PO SCH (07:58)
[2022-03-24] MEDS: PANTOPRAZOLE 40MG TAB (PROTONIX) PO SCH (07:59)
[2022-03-24] MEDS: CALCIUM/VITAMIN D 500 MG TAB PO SCH (07:59)
[2022-03-24] MEDS: busPIRone 5 MG TAB PO SCH ×2 (07:59→20:31)
[2022-03-24] MEDS: allopurinoL 100 MG TAB PO SCH (07:59)
[2022-03-24] MEDS: CitaloPRAM (CeleXA) 20 MG TAB PO SCH (08:00)
[2022-03-24] MEDS: amLODIPine 5 MG TAB PO SCH (08:00)
[2022-03-24] MEDS: CALCITRIOL 0.25 MCG CAP (S0169) PO SCH (08:00)
[2022-03-24] MEDS: CLOPIDOGREL 75 MG TAB PO SCH (08:00)
[2022-03-24] MEDS: NORCO, ANEXSIA 5/325MG TABLET (HYDROcodone/ACETAMINOPHEN) PO PRN (08:02)
[2022-03-24] MEDS: oxyBUTYnin 5 MG TAB PO SCH (17:06)
[2022-03-24] MEDS: SIMVASTATIN 20 MG TAB PO SCH (20:31)
[2022-03-24] MEDS: VANCOMYCIN HCL 1,000 MG, VIAL MATE ADAPTER 1 EACH in NS 250 ML IV SCH (20:36)
[2022-03-25 03:15] VITALS: BP 144/60
[2022-03-25] MEDS: ACETAMINOPHEN TAB 650MG DOSE (2X325MG) PO PRN (04:22)
[2022-03-25] MEDS: LEVOTHYROXINE 75MCG TABLET (0.075MG) PO SCH (05:07)
[2022-03-25] MEDS: LR 1,000 ML IV SCH (05:07)
[2022-03-25 06:00] VITALS: BP 140/60
[2022-03-25 06:17] LABS: HEMATOCRIT 24.8 % (36.0-47.0); HEMOGLOBIN 7.9 g/dl (12.0-15.5); MEAN CORPUSCULAR HEMOGLOBIN 34.3 pg (27.0-33.0); MEAN CORPUSCULAR HGB CONC 31.9 g/dl (32.0-36.5); MEAN CORPUSCULAR VOLUME 107.8 fl (80.0-96.0); PLATELET COUNT, AUTOMATED 254 10^3/uL (150-450); WHITE BLOOD COUNT 6.1 10^3/uL (4.0-10.0)
[2022-03-25 06:42] LABS: BLOOD UREA NITROGEN 27 MG/DL (7-18); CARBON DIOXIDE LEVEL 27 MEQ/L (21-32); CHLORIDE LEVEL 108 MEQ/L (98-107); CREATININE FOR GFR 1.37 MG/DL (0.55-1.30); GLOMERULAR FILTRATION RATE 39.4 (>32); GLUCOSE, FASTING 99 MG/DL (70-100); SODIUM LEVEL 142 MEQ/L (136-145)
[2022-03-25] MEDS: INSULIN LISPRO (NovoLOG) PER UNIT SC SCH ×4 (07:30→21:00)
[2022-03-25] MEDS: CLOPIDOGREL 75 MG TAB PO SCH (08:39)
[2022-03-25] MEDS: busPIRone 5 MG TAB PO SCH ×2 (08:39→20:23)
[2022-03-25] MEDS: ASPIRIN 81MG ENTERIC TABLET PO SCH (08:39)
[2022-03-25] MEDS: PANTOPRAZOLE 40MG TAB (PROTONIX) PO SCH (08:39)
[2022-03-25] MEDS: CALCITRIOL 0.25 MCG CAP (S0169) PO SCH (08:39)
[2022-03-25] MEDS: FERROUS SULFATE 325MG TAB PO SCH (08:39)
[2022-03-25] MEDS: CALCIUM/VITAMIN D 500 MG TAB PO SCH (08:39)
[2022-03-25] MEDS: CitaloPRAM (CeleXA) 20 MG TAB PO SCH (08:39)
[2022-03-25] MEDS: amLODIPine 5 MG TAB PO SCH (08:46)
[2022-03-25] MEDS: allopurinoL 100 MG TAB PO SCH (08:47)
[2022-03-25 10:00] VITALS: BP 144/61
[2022-03-25 10:40] LABS: FERRITIN 44 NG/ML (8-252); IRON (FE) 13 UG/DL (50-170); PERCENT SATURATION 5.7 % (13.2-45.0); TOTAL IRON BINDING CAPACITY 228 UG/DL (250-450); TOTAL PROTEIN 5.2 GM/DL (6.4-8.2)
[2022-03-25] MEDS: NORCO, ANEXSIA 5/325MG TABLET (HYDROcodone/ACETAMINOPHEN) PO PRN (10:41)
[2022-03-25 14:00] VITALS: BP 141/58
[2022-03-25] MEDS: oxyBUTYnin 5 MG TAB PO SCH (17:09)
[2022-03-25 18:00] VITALS: BP 158/42
[2022-03-25 20:21] VITALS: BP 142/71
[2022-03-25] MEDS: SIMVASTATIN 20 MG TAB PO SCH (20:23)
[2022-03-25] MEDS: VANCOMYCIN HCL 1,000 MG, VIAL MATE ADAPTER 1 EACH in NS 250 ML IV SCH (20:24)
[2022-03-26] MEDS: LEVOTHYROXINE 75MCG TABLET (0.075MG) PO SCH (05:24)
[2022-03-26 06:18] LABS: HEMATOCRIT 25.1 % (36.0-47.0); MEAN CORPUSCULAR HEMOGLOBIN 34.8 pg (27.0-33.0); MEAN CORPUSCULAR HGB CONC 31.9 g/dl (32.0-36.5); MEAN CORPUSCULAR VOLUME 109.1 fl (80.0-96.0); PLATELET COUNT, AUTOMATED 262 10^3/uL (150-450)
[2022-03-26 06:36] LABS: CALCIUM LEVEL 9.3 MG/DL (8.8-10.2); CREATININE FOR GFR 1.39 MG/DL (0.55-1.30); GLOMERULAR FILTRATION RATE 38.7 (>32); POTASSIUM SERUM 4.6 MEQ/L (3.5-5.1)
[2022-03-26 06:38] VITALS: BP 140/80
[2022-03-26] MEDS: INSULIN LISPRO (NovoLOG) PER UNIT SC SCH ×4 (07:30→21:00)
[2022-03-26] MEDS: CLOPIDOGREL 75 MG TAB PO SCH (08:21)
[2022-03-26] MEDS: FERROUS SULFATE 325MG TAB PO SCH (08:21)
[2022-03-26] MEDS: busPIRone 5 MG TAB PO SCH ×2 (08:21→21:21)
[2022-03-26] MEDS: PANTOPRAZOLE 40MG TAB (PROTONIX) PO SCH (08:21)
[2022-03-26] MEDS: CALCIUM/VITAMIN D 500 MG TAB PO SCH (08:21)
[2022-03-26] MEDS: ASPIRIN 81MG ENTERIC TABLET PO SCH (08:21)
[2022-03-26] MEDS: CitaloPRAM (CeleXA) 20 MG TAB PO SCH (08:21)
[2022-03-26] MEDS: CALCITRIOL 0.25 MCG CAP (S0169) PO SCH (08:21)
[2022-03-26] MEDS: amLODIPine 5 MG TAB PO SCH (08:22)
[2022-03-26] MEDS: allopurinoL 100 MG TAB PO SCH (08:22)
[2022-03-26 13:09] LABS: VITAMIN B12 LEVEL 135 PG/ML (247-911)
[2022-03-26 13:11] LABS: FOLATE 10.2 NG/ML (>5.4)
[2022-03-26 14:00] VITALS: BP 120/45
[2022-03-26] MEDS: ACETAMINOPHEN TAB 650MG DOSE (2X325MG) PO PRN (14:11)
[2022-03-26] MEDS: oxyBUTYnin 5 MG TAB PO SCH (17:29)
[2022-03-26] MEDS: SIMVASTATIN 20 MG TAB PO SCH (21:21)
[2022-03-26 22:00] VITALS: BP 153/63
[2022-03-27] MEDS: LEVOTHYROXINE 75MCG TABLET (0.075MG) PO SCH (04:47)
[2022-03-27 06:00] VITALS: BP 133/49
[2022-03-27 06:01] LABS: HEMOGLOBIN 8.1 g/dl (12.0-15.5); MEAN CORPUSCULAR HEMOGLOBIN 32.8 pg (27.0-33.0); MEAN CORPUSCULAR HGB CONC 31.2 g/dl (32.0-36.5); MEAN CORPUSCULAR VOLUME 105.3 fl (80.0-96.0); PLATELET COUNT, AUTOMATED 281 10^3/uL (150-450); RED BLOOD COUNT 2.47 10^6/uL (4.00-5.40); WHITE BLOOD COUNT 5.2 10^3/uL (4.0-10.0)
[2022-03-27 06:46] LABS: CALCIUM LEVEL 9.3 MG/DL (8.8-10.2); CREATININE FOR GFR 1.29 MG/DL (0.55-1.30); GLOMERULAR FILTRATION RATE 42.2 (>32); POTASSIUM SERUM 4.2 MEQ/L (3.5-5.1)
[2022-03-27] MEDS: INSULIN LISPRO (NovoLOG) PER UNIT SC SCH ×2 (07:30→12:35)
[2022-03-27] MEDS: PANTOPRAZOLE 40MG TAB (PROTONIX) PO SCH (10:07)
[2022-03-27] MEDS: FERROUS SULFATE 325MG TAB PO SCH (10:07)
[2022-03-27] MEDS: ASPIRIN 81MG ENTERIC TABLET PO SCH (10:07)
[2022-03-27] MEDS: CALCIUM/VITAMIN D 500 MG TAB PO SCH (10:07)
[2022-03-27] MEDS: busPIRone 5 MG TAB PO SCH (10:07)
[2022-03-27 10:08] VITALS: BP 133/49
[2022-03-27] MEDS: amLODIPine 5 MG TAB PO SCH (10:08)
[2022-03-27] MEDS: ACETAMINOPHEN TAB 650MG DOSE (2X325MG) PO PRN (10:08)
[2022-03-27] MEDS: allopurinoL 100 MG TAB PO SCH (10:08)
[2022-03-27] MEDS: CALCITRIOL 0.25 MCG CAP (S0169) PO SCH (10:08)
[2022-03-27] MEDS: CLOPIDOGREL 75 MG TAB PO SCH (10:08)
[2022-03-27] MEDS: CitaloPRAM (CeleXA) 20 MG TAB PO SCH (10:08)
[2022-03-27 12:19] LABS: ALBUMIN 2.44 GM/DL (3.29-5.55); ALPHA-1-GLOBULIN % 9.4 % (2.9-4.9); ALPHA-1-GLOBULINS 0.49 GM/DL (0.17-0.41); ALPHA-2-GLOBULINS 0.91 GM/DL (0.42-0.99); ALPHA-2-GLOBULINS % 17.5 % (7.1-11.8); BETA-1-GLOBULINS 0.38 GM/DL (0.28-0.60); BETA-1-GLOBULINS % 7.3 % (4.7-7.2); BETA-2-GLOBULINS 0.37 GM/DL (0.19-0.55); BETA-2-GLOBULINS % 7.1 % (3.2-6.5); GAMMA GLOBULIN % 11.7 % (11.1-18.8); GAMMA GLOBULINS 0.61 GM/DL (0.65-1.58)
[2022-03-28 01:07] LABS: ANA (HEP2) Negative (.); CYCLIC CITRULLINATED PEPTIDE 4 units (0-19)
== END 2022-03-27 15:02 | disposition home health service (06) | DRG 488 ==
LOC: M ED 15:04 → M ED INP 22:00 → ENRESERV 23:16 → M MS5PR 03-23
PROVIDERS: ADMIT Internal Medicine; ATTEND Internal Medicine
PROC: 0S9C0ZZ Drainage of Right Knee Joint, Open Approach (ICD-10-PCS; principal; 2022-03-24)
DX: M25.461 Effusion, right knee (principal); I13.0 Hypertensive heart and chronic kidney disease with heart failure and stage 1 through stage 4 chronic kidney disease, or unspecified chronic kidney disease; K92.1 Melena; I50.32 Chronic diastolic (congestive) heart failure; G47.33 Obstructive sleep apnea (adult) (pediatric); L40.9 Psoriasis, unspecified; E03.9 Hypothyroidism, unspecified; E78.00 Pure hypercholesterolemia, unspecified; E11.51 Type 2 diabetes mellitus with diabetic peripheral angiopathy without gangrene; F32.A Depression, unspecified; M10.9 Gout, unspecified; I25.10 Atherosclerotic heart disease of native coronary artery without angina pectoris; E11.22 Type 2 diabetes mellitus with diabetic chronic kidney disease; K21.9 Gastro-esophageal reflux disease without esophagitis; D64.9 Anemia, unspecified; J44.9 Chronic obstructive pulmonary disease, unspecified; N18.32 Chronic kidney disease, stage 3b; E53.8 Deficiency of other specified B group vitamins; Z86.73 Personal history of transient ischemic attack (TIA), and cerebral infarction without residual deficits; Z79.899 Other long term (current) drug therapy; Z79.82 Long term (current) use of aspirin; Z88.8 Allergy status to other drugs, medicaments and biological substances; Z91.19 Patient's noncompliance with other medical treatment and regimen; M19.90 Unspecified osteoarthritis, unspecified site; E55.9 Vitamin D deficiency, unspecified; Z98.41 Cataract extraction status, right eye; Z98.42 Cataract extraction status, left eye

== ENCOUNTER 2022-05-29 00:42 | Inpatient (IN) | payer MEDICARE, MEDICAID ==
[~2022-05-29] VITALS: Ht 157.5 cm; Wt 80.0 kg
[2022-05-29] VITALS (9 sets, daily range): BP systolic 111–144; BP diastolic 51–56; O2SAT 88–94
[~2022-05-29 00:42] MED LIST changes: +ACET-910 PO; +BUSP-29 PO; +CALCD50TA PO; +CLOP75TA2 PO; +DEXI60CA2 PO; +HYDR-4571 PO; +IPRA0.00 NEB; +OXYB5TAB10 PO; +PLAV1TAB2 PO; +SYMB16INH INH; +SYNT75TA PO
[2022-05-29] MEDS ORDERED: MORPHINE 4 MG/ML 1ML VIAL/SYRINGE IV PRN ×2 (02:25→14:50)
[2022-05-29] MEDS ORDERED: ONDANSETRON 4MG 2ML VIAL IV ONE (02:25)
[2022-05-29 03:23] LABS: BASO % 0.1 % (0.0-1.0); HEMATOCRIT 31.8 % (36.0-47.0); HEMOGLOBIN 9.4 g/dl (12.0-15.5); LYMPH # 0.4 10^3/uL (1.5-5.0); LYMPH % 3.3 % (24.0-44.0); MEAN CORPUSCULAR HEMOGLOBIN 32.5 pg (27.0-33.0); MEAN CORPUSCULAR HGB CONC 29.6 g/dl (32.0-36.5); MONO # 1.2 10^3/uL (0.0-0.8); MONO % 10.3 % (2.0-8.0); NEUTROPHILS # 9.6 10^3/uL (1.5-8.5); PLATELET COUNT, AUTOMATED 307 10^3/uL (150-450); RED BLOOD COUNT 2.89 10^6/uL (4.00-5.40); WHITE BLOOD COUNT 11.1 10^3/uL (4.0-10.0)
[2022-05-29 03:33] LABS: INR 1.37; PROTHROMBIN TIME 17.3 SECONDS (12.7-14.5)
[2022-05-29 03:51] LABS: CREATININE FOR GFR 1.88 MG/DL (0.55-1.30); GLOMERULAR FILTRATION RATE 27.3 (>32); POTASSIUM SERUM 3.9 MEQ/L (3.5-5.1)
[2022-05-29 03:56] LABS: RSV AMPLIFICATION NEGATIVE (NEGATIVE)
[2022-05-29] MEDS ORDERED: SYMB16INH INH (04:53)
[2022-05-29] MEDS ORDERED: HOME MED LIST COMPLETE! XX SCH (04:55)
[2022-05-29] MEDS ORDERED: HYDROmorphone 2 MG TAB PO PRN (05:15)
[2022-05-29] MEDS ORDERED: ACETAMINOPHEN TAB 650MG DOSE (2X325MG) PO PRN (05:25)
[2022-05-29] MEDS: LEVOTHYROXINE 75MCG TABLET (0.075MG) PO SCH (06:00)
[2022-05-29] MEDS ORDERED: HYDROMORPHONE HCL 0.5 MG/ 0.5 ML SYRINGE (J1170 PER 1) IV PRN (06:30)
[2022-05-29 07:09] LABS: FREE T4 1.21 NG/DL (0.76-1.46)
[2022-05-29] MEDS: SYMBICORT 160/4.5MCG INHALER 6GM INH SCH ×2 (08:09→20:00)
[2022-05-29] MEDS: METOPROLOL TART 12.5 MG PER 1/2 TAB PO SCH ×2 (08:17→20:57)
[2022-05-29] MEDS ORDERED: busPIRone 10 MG TAB PO SCH (09:00)
[2022-05-29] MEDS ORDERED: LORATADINE 10 MG TAB PO SCH (09:00)
[2022-05-29] MEDS ORDERED: CALCIUM/VITAMIN D 500 MG TAB PO SCH (09:00)
[2022-05-29] MEDS ORDERED: PANTOPRAZOLE 40MG VIAL IV SCH (09:00)
[2022-05-29] MEDS ORDERED: FUROSEMIDE 20 MG TAB PO SCH (09:00)
[2022-05-29] MEDS ORDERED: PANTOPRAZOLE 40MG TAB (PROTONIX) PO SCH (09:00)
[2022-05-29] MEDS ORDERED: amLODIPine 5 MG TAB PO SCH (09:00)
[2022-05-29] MEDS ORDERED: FUROSEMIDE 20MG/2ML VIAL (J1940) IV SCH (09:00)
[2022-05-29] MEDS ORDERED: FERROUS SULFATE 325MG TAB PO SCH (09:00)
[2022-05-29] MEDS ORDERED: allopurinoL 100 MG TAB PO SCH (09:00)
[2022-05-29] MEDS ORDERED: METOPROLOL SUCC *XL* 12.5MG PER 1/2 TAB (TopROL *XL*) PO SCH (09:00)
[2022-05-29] MEDS ORDERED: CALCITRIOL 0.25 MCG CAP (S0169) PO SCH (09:00)
[2022-05-29] MEDS ORDERED: ASPIRIN 81MG ENTERIC TABLET PO SCH (09:00)
[2022-05-29] MEDS: CitaloPRAM (CeleXA) 20 MG TAB PO SCH (10:24)
[2022-05-29] MEDS: IPRATROPIUM 0.5MG/ALBUTEROL 2.5MG INH SOL UD 3ML (DUONEB) NEB PRN (10:41)
[2022-05-29] MEDS ORDERED: ONDANSETRON 4MG 2ML VIAL IV PRN (12:35)
[2022-05-29] MEDS ORDERED: PERCOCET 5MG/325MG TAB PO PRN ×2 (16:40→22:00)
[2022-05-29] MEDS: FUROSEMIDE 40MG/4ML VIAL (J1940) IV SCH (17:05)
[2022-05-29] MEDS: oxyBUTYnin 5 MG TAB PO SCH (17:05)
[2022-05-29] MEDS: HEPARIN SOD (PORCINE) 5000UNITS/ML 1ML VIAL/SYRINGE SC SCH (17:05)
[2022-05-29] MEDS: SIMVASTATIN 20 MG TAB PO SCH (20:56)
[2022-05-29] MEDS: busPIRone 10 MG TAB PO SCH (20:56)
[2022-05-30 04:00] VITALS: BP 119/55
[2022-05-30 04:01] LABS: BASO % 0.2 % (0.0-1.0); EOS % 0.4 % (0.0-3.0); HEMATOCRIT 32.5 % (36.0-47.0); HEMOGLOBIN 9.5 g/dl (12.0-15.5); LYMPH # 0.5 10^3/uL (1.5-5.0); LYMPH % 4.4 % (24.0-44.0); MEAN CORPUSCULAR HEMOGLOBIN 33.5 pg (27.0-33.0); MEAN CORPUSCULAR HGB CONC 29.2 g/dl (32.0-36.5); NEUTROPHILS % 80.6 % (36.0-66.0); PLATELET COUNT, AUTOMATED 289 10^3/uL (150-450); RED BLOOD COUNT 2.84 10^6/uL (4.00-5.40); WHITE BLOOD COUNT 11.2 10^3/uL (4.0-10.0)
[2022-05-30 04:04] LABS: MEAN CORPUSCULAR VOLUME 114.4 fl (80.0-96.0)
[2022-05-30 04:25] LABS: MONO # 1.6 10^3/uL (0.0-0.8)
[2022-05-30 04:26] LABS: PLATELET ESTIMATE NORMAL (NORMAL)
[2022-05-30 04:27] LABS: HYPOCHROMASIA 2+; OVALOCYTES 2+; POLYCHROMASIA 1+
[2022-05-30 04:28] LABS: ANISOCYTOSIS 2+; BURR CELLS 1+
[2022-05-30 04:29] LABS: PLATELET CLUMPS SMALL AMT
[2022-05-30 04:30] LABS: CREATININE FOR GFR 2.41 MG/DL (0.55-1.30); GLOMERULAR FILTRATION RATE 20.5 (>32); POTASSIUM SERUM 4.3 MEQ/L (3.5-5.1)
[2022-05-30] MEDS: LEVOTHYROXINE 75MCG TABLET (0.075MG) PO SCH (06:00)
[2022-05-30] MEDS: HEPARIN SOD (PORCINE) 5000UNITS/ML 1ML VIAL/SYRINGE SC SCH (06:01)
[2022-05-30 08:00] VITALS: BP 106/54
[2022-05-30] MEDS: SYMBICORT 160/4.5MCG INHALER 6GM INH SCH ×2 (08:34→20:41)
[2022-05-30] MEDS: busPIRone 10 MG TAB PO SCH ×2 (09:00→20:49)
[2022-05-30] MEDS: FUROSEMIDE 40MG/4ML VIAL (J1940) IV SCH (09:00)
[2022-05-30] MEDS: CitaloPRAM (CeleXA) 20 MG TAB PO SCH (09:00)
[2022-05-30] MEDS ORDERED: PNEUMOCOCCAL VACCINE 0.5ML SYRINGE (PNEUMOVAX 23) IM.IMMUN ONE (09:00)
[2022-05-30] MEDS: METOPROLOL TART 12.5 MG PER 1/2 TAB PO SCH ×2 (09:00→20:50)
[2022-05-30] MEDS: PANTOPRAZOLE 40MG TAB (PROTONIX) PO SCH (09:00)
[2022-05-30 12:00] VITALS: BP 124/56
[2022-05-30] MEDS ORDERED: fentaNYL 100 MCG/2 ML INJECTION As Ordered ONE (16:26)
[2022-05-30] MEDS ORDERED: LIDOCAINE 2% 100MG/5ML SDV (FOR ANES.) As Ordered ONE (16:26)
[2022-05-30] MEDS ORDERED: propofoL 200 MG/20 ML VIAL As Ordered ONE (16:26)
[2022-05-30] MEDS: oxyBUTYnin 5 MG TAB PO SCH (17:00)
[2022-05-30] MEDS ORDERED: LR 1,000 ML IV SCH ×2 (17:15→18:00)
[2022-05-30] MEDS ORDERED: fentaNYL 100 MCG/2 ML INJECTION IV PRN (17:15)
[2022-05-30] MEDS ORDERED: oxyCODONE 5MG TAB PO PRN (17:15)
[2022-05-30] MEDS ORDERED: ONDANSETRON 4MG 2ML VIAL IV PRN ×2 (17:15→18:00)
[2022-05-30] MEDS ORDERED: ALBUTEROL SULFATE 2.5 MG/0.5 ML INH NEB SOLN INH ONE (17:55)
[2022-05-30] MEDS ORDERED: traMADol 50 MG TAB PO PRN (18:00)
[2022-05-30 18:40] VITALS: BP 136/60
[2022-05-30 20:13] VITALS: BP 129/60
[2022-05-30] MEDS: SIMVASTATIN 20 MG TAB PO SCH (20:49)
[2022-05-31 00:08] VITALS: BP 137/63
[2022-05-31 04:00] VITALS: BP 118/57
[2022-05-31 04:27] LABS: BASO % 0.1 % (0.0-1.0); EOS % 0.1 % (0.0-3.0); HEMATOCRIT 32.6 % (36.0-47.0); HEMOGLOBIN 9.5 g/dl (12.0-15.5); LYMPH # 0.3 10^3/uL (1.5-5.0); LYMPH % 3.2 % (24.0-44.0); MEAN CORPUSCULAR HEMOGLOBIN 32.2 pg (27.0-33.0); MEAN CORPUSCULAR HGB CONC 29.1 g/dl (32.0-36.5); MEAN CORPUSCULAR VOLUME 110.5 fl (80.0-96.0); MONO % 9.8 % (2.0-8.0); NEUTROPHILS # 8.5 10^3/uL (1.5-8.5); PLATELET COUNT, AUTOMATED 253 10^3/uL (150-450); RED BLOOD COUNT 2.95 10^6/uL (4.00-5.40); WHITE BLOOD COUNT 9.8 10^3/uL (4.0-10.0)
[2022-05-31 04:58] LABS: CALCIUM LEVEL 8.8 MG/DL (8.8-10.2); CREATININE FOR GFR 2.06 MG/DL (0.55-1.30); GLOMERULAR FILTRATION RATE 24.6 (>32)
[2022-05-31] MEDS: LEVOTHYROXINE 75MCG TABLET (0.075MG) PO SCH (05:22)
[2022-05-31 08:00] VITALS: BP 132/71
[2022-05-31] MEDS ORDERED: FUROSEMIDE 20MG/2ML VIAL (J1940) IV SCH (09:00)
[2022-05-31] MEDS: PANTOPRAZOLE 40MG TAB (PROTONIX) PO SCH (09:00)
[2022-05-31] MEDS: busPIRone 10 MG TAB PO SCH ×2 (09:00→21:04)
[2022-05-31] MEDS: CitaloPRAM (CeleXA) 20 MG TAB PO SCH (09:00)
[2022-05-31] MEDS: METOPROLOL TART 12.5 MG PER 1/2 TAB PO SCH ×2 (09:01→21:04)
[2022-05-31] MEDS: SYMBICORT 160/4.5MCG INHALER 6GM INH SCH ×2 (09:12→19:58)
[2022-05-31] MEDS ORDERED: PNEUMOCOCCAL VACCINE 0.5ML SYRINGE (PNEUMOVAX 23) IM.IMMUN ONE (10:00)
[2022-05-31 12:00] VITALS: BP 101/52
[2022-05-31 14:00] VITALS: BP 127/61
[2022-05-31] MEDS: methylPREDNISolone 40MG 1ML VIAL IV SCH (15:56)
[2022-05-31 16:00] VITALS: BP 123/69
[2022-05-31] MEDS: HEPARIN SOD (PORCINE) 5000UNITS/ML 1ML VIAL/SYRINGE SC SCH (18:21)
[2022-05-31] MEDS: ACETAMINOPHEN TAB 650MG DOSE (2X325MG) PO PRN (21:04)
[2022-05-31] MEDS: SIMVASTATIN 20 MG TAB PO SCH (21:05)
[2022-06-01] VITALS (20 sets, daily range): BP systolic 105–141; BP diastolic 55–60; O2SAT 86–97
[2022-06-01 04:55] LABS: BASO % 0.1 % (0.0-1.0); HEMATOCRIT 31.7 % (36.0-47.0); HEMOGLOBIN 9.7 g/dl (12.0-15.5); LYMPH # 0.3 10^3/uL (1.5-5.0); LYMPH % 3.1 % (24.0-44.0); MEAN CORPUSCULAR HEMOGLOBIN 33.1 pg (27.0-33.0); MEAN CORPUSCULAR HGB CONC 30.6 g/dl (32.0-36.5); MEAN CORPUSCULAR VOLUME 108.2 fl (80.0-96.0); MONO # 0.6 10^3/uL (0.0-0.8); MONO % 5.6 % (2.0-8.0); NEUTROPHILS # 9.3 10^3/uL (1.5-8.5); NEUTROPHILS % 90.6 % (36.0-66.0); PLATELET COUNT, AUTOMATED 233 10^3/uL (150-450); RED BLOOD COUNT 2.93 10^6/uL (4.00-5.40); WHITE BLOOD COUNT 10.3 10^3/uL (4.0-10.0)
[2022-06-01 05:28] LABS: CALCIUM LEVEL 8.7 MG/DL (8.8-10.2); CREATININE FOR GFR 1.96 MG/DL (0.55-1.30); GLOMERULAR FILTRATION RATE 26.1 (>32); POTASSIUM SERUM 4.2 MEQ/L (3.5-5.1)
[2022-06-01] MEDS: HEPARIN SOD (PORCINE) 5000UNITS/ML 1ML VIAL/SYRINGE SC SCH ×2 (05:57→17:42)
[2022-06-01] MEDS: LEVOTHYROXINE 75MCG TABLET (0.075MG) PO SCH (05:57)
[2022-06-01] MEDS: SYMBICORT 160/4.5MCG INHALER 6GM INH SCH ×2 (07:59→20:42)
[2022-06-01] MEDS: FUROSEMIDE 20MG/2ML VIAL (J1940) IV SCH ×2 (08:35→17:41)
[2022-06-01] MEDS: CitaloPRAM (CeleXA) 20 MG TAB PO SCH (08:35)
[2022-06-01] MEDS: busPIRone 10 MG TAB PO SCH ×2 (08:35→20:19)
[2022-06-01] MEDS: PANTOPRAZOLE 40MG TAB (PROTONIX) PO SCH (08:35)
[2022-06-01] MEDS: METOPROLOL TART 12.5 MG PER 1/2 TAB PO SCH ×2 (08:35→20:19)
[2022-06-01] MEDS: ACETAMINOPHEN TAB 650MG DOSE (2X325MG) PO PRN (08:36)
[2022-06-01] MEDS: methylPREDNISolone 40MG 1ML VIAL IV SCH (15:07)
[2022-06-01] MEDS: IPRATROPIUM 0.5MG/ALBUTEROL 2.5MG INH SOL UD 3ML (DUONEB) NEB PRN (17:53)
[2022-06-01] MEDS: SIMVASTATIN 20 MG TAB PO SCH (20:19)
[2022-06-01] MEDS: PERCOCET 5MG/325MG TAB PO PRN (23:43)
[2022-06-02] VITALS (35 sets, daily range): BP systolic 121–148; BP diastolic 58–66; O2SAT 77–100
[2022-06-02] MEDS: LEVOTHYROXINE 75MCG TABLET (0.075MG) PO SCH (05:20)
[2022-06-02] MEDS: HEPARIN SOD (PORCINE) 5000UNITS/ML 1ML VIAL/SYRINGE SC SCH ×2 (05:20→17:54)
[2022-06-02 05:35] LABS: BASO % 0.1 % (0.0-1.0); HEMATOCRIT 30.8 % (36.0-47.0); HEMOGLOBIN 9.4 g/dl (12.0-15.5); LYMPH # 0.3 10^3/uL (1.5-5.0); MEAN CORPUSCULAR HEMOGLOBIN 32.6 pg (27.0-33.0); MEAN CORPUSCULAR HGB CONC 30.5 g/dl (32.0-36.5); MEAN CORPUSCULAR VOLUME 106.9 fl (80.0-96.0); MONO # 0.6 10^3/uL (0.0-0.8); MONO % 6.3 % (2.0-8.0); NEUTROPHILS % 90.2 % (36.0-66.0); PLATELET COUNT, AUTOMATED 244 10^3/uL (150-450); RED BLOOD COUNT 2.88 10^6/uL (4.00-5.40); WHITE BLOOD COUNT 8.9 10^3/uL (4.0-10.0)
[2022-06-02 06:09] LABS: CREATININE FOR GFR 1.95 MG/DL (0.55-1.30); GLOMERULAR FILTRATION RATE 26.2 (>32); POTASSIUM SERUM 4.1 MEQ/L (3.5-5.1)
[2022-06-02] MEDS: SYMBICORT 160/4.5MCG INHALER 6GM INH SCH ×2 (07:20→19:22)
[2022-06-02] MEDS: METOPROLOL TART 12.5 MG PER 1/2 TAB PO SCH ×2 (09:42→21:42)
[2022-06-02] MEDS: FUROSEMIDE 20MG/2ML VIAL (J1940) IV SCH ×2 (09:43→17:53)
[2022-06-02] MEDS: CitaloPRAM (CeleXA) 20 MG TAB PO SCH (09:43)
[2022-06-02] MEDS: PANTOPRAZOLE 40MG TAB (PROTONIX) PO SCH (09:43)
[2022-06-02] MEDS: busPIRone 10 MG TAB PO SCH ×2 (09:43→21:42)
[2022-06-02] MEDS: methylPREDNISolone 40MG 1ML VIAL IV SCH (15:04)
[2022-06-02] MEDS: SIMVASTATIN 20 MG TAB PO SCH (21:41)
[2022-06-03] VITALS (14 sets, daily range): BP systolic 123–152; BP diastolic 62–84; O2SAT 88–100
[2022-06-03 04:39] LABS: HEMATOCRIT 31.2 % (36.0-47.0); HEMOGLOBIN 9.6 g/dl (12.0-15.5); LYMPH # 0.3 10^3/uL (1.5-5.0); LYMPH % 3.4 % (24.0-44.0); MEAN CORPUSCULAR HEMOGLOBIN 32.4 pg (27.0-33.0); MEAN CORPUSCULAR HGB CONC 30.8 g/dl (32.0-36.5); MEAN CORPUSCULAR VOLUME 105.4 fl (80.0-96.0); MONO # 0.5 10^3/uL (0.0-0.8); MONO % 6.7 % (2.0-8.0); NEUTROPHILS # 6.9 10^3/uL (1.5-8.5); NEUTROPHILS % 89.5 % (36.0-66.0); PLATELET COUNT, AUTOMATED 276 10^3/uL (150-450); RED BLOOD COUNT 2.96 10^6/uL (4.00-5.40); WHITE BLOOD COUNT 7.7 10^3/uL (4.0-10.0)
[2022-06-03 05:12] LABS: CALCIUM LEVEL 8.6 MG/DL (8.8-10.2); CREATININE FOR GFR 1.88 MG/DL (0.55-1.30); GLOMERULAR FILTRATION RATE 27.3 (>32); POTASSIUM SERUM 4.6 MEQ/L (3.5-5.1)
[2022-06-03] MEDS: HEPARIN SOD (PORCINE) 5000UNITS/ML 1ML VIAL/SYRINGE SC SCH ×2 (05:56→17:16)
[2022-06-03] MEDS: LEVOTHYROXINE 75MCG TABLET (0.075MG) PO SCH (05:56)
[2022-06-03] MEDS: SYMBICORT 160/4.5MCG INHALER 6GM INH SCH ×2 (07:13→19:30)
[2022-06-03] MEDS: PANTOPRAZOLE 40MG TAB (PROTONIX) PO SCH (09:03)
[2022-06-03] MEDS: CitaloPRAM (CeleXA) 20 MG TAB PO SCH (09:03)
[2022-06-03] MEDS: FUROSEMIDE 20MG/2ML VIAL (J1940) IV SCH (09:03)
[2022-06-03] MEDS: METOPROLOL TART 12.5 MG PER 1/2 TAB PO SCH ×2 (09:03→20:32)
[2022-06-03] MEDS: busPIRone 10 MG TAB PO SCH ×2 (09:03→20:31)
[2022-06-03] MEDS ORDERED: MIRALAX *UNIT DOSE* 17GM PACKET PO PRN (11:35)
[2022-06-03] MEDS: methylPREDNISolone 40MG 1ML VIAL IV SCH (15:22)
[2022-06-03] MEDS: IPRATROPIUM 0.5MG/ALBUTEROL 2.5MG INH SOL UD 3ML (DUONEB) NEB PRN (15:24)
[2022-06-03] MEDS ORDERED: IPRATROPIUM 0.5MG/ALBUTEROL 2.5MG INH SOL UD 3ML (DUONEB) NEB PRN (15:40)
[2022-06-03] MEDS: FUROSEMIDE 40MG/4ML VIAL (J1940) IV SCH (17:17)
[2022-06-03] MEDS: metOLazone 5 MG TAB PO SCH (17:17)
[2022-06-03] MEDS: SENNA 8.6 MG TAB (SENOKOT) PO PRN (17:17)
[2022-06-03] MEDS: IPRATROPIUM 0.5MG/ALBUTEROL 2.5MG INH SOL UD 3ML (DUONEB) NEB SCH (19:30)
[2022-06-03] MEDS: SIMVASTATIN 20 MG TAB PO SCH (20:31)
[2022-06-03] MEDS: PERCOCET 5MG/325MG TAB PO PRN (21:23)
[2022-06-04] VITALS (8 sets, daily range): BP systolic 118–143; BP diastolic 57–78; O2SAT 98
[2022-06-04] MEDS ORDERED: NITROGLYCERIN 2% OINT 1 GM *U/D* PKT TOP ONE (00:40)
[2022-06-04] MEDS ORDERED: ASPIRIN 81 MG CHEW TABLET PO ONE (00:40)
[2022-06-04 01:28] LABS: CK-MB VALUE MASS 1.1 NG/ML (<3.6); MB/CK RELATIVE INDEX 0.9 (< OR =4)
[2022-06-04] MEDS: IPRATROPIUM 0.5MG/ALBUTEROL 2.5MG INH SOL UD 3ML (DUONEB) NEB SCH ×4 (02:08→19:37)
[2022-06-04 04:02] LABS: HEMATOCRIT 32.4 % (36.0-47.0); HEMOGLOBIN 9.9 g/dl (12.0-15.5); LYMPH # 0.3 10^3/uL (1.5-5.0); LYMPH % 3.7 % (24.0-44.0); MEAN CORPUSCULAR HGB CONC 30.6 g/dl (32.0-36.5); MEAN CORPUSCULAR VOLUME 104.9 fl (80.0-96.0); MONO # 0.6 10^3/uL (0.0-0.8); MONO % 7.2 % (2.0-8.0); NEUTROPHILS # 7.4 10^3/uL (1.5-8.5); NEUTROPHILS % 88.9 % (36.0-66.0); PLATELET COUNT, AUTOMATED 261 10^3/uL (150-450); RED BLOOD COUNT 3.09 10^6/uL (4.00-5.40); WHITE BLOOD COUNT 8.3 10^3/uL (4.0-10.0)
[2022-06-04 04:33] LABS: CREATININE FOR GFR 1.7 MG/DL (0.55-1.30); GLOMERULAR FILTRATION RATE 30.7 (>32); POTASSIUM SERUM 3.9 MEQ/L (3.5-5.1)
[2022-06-04 04:35] LABS: CK-MB VALUE MASS 1.6 NG/ML (<3.6); MB/CK RELATIVE INDEX 4.32 (< OR =4)
[2022-06-04] MEDS: LEVOTHYROXINE 75MCG TABLET (0.075MG) PO SCH (05:57)
[2022-06-04] MEDS: HEPARIN SOD (PORCINE) 5000UNITS/ML 1ML VIAL/SYRINGE SC SCH ×2 (05:57→18:06)
[2022-06-04] MEDS: SYMBICORT 160/4.5MCG INHALER 6GM INH SCH ×2 (07:42→19:37)
[2022-06-04] MEDS ORDERED: POTASSIUM CHLORIDE 10MEQ SR TABLET PO ONE (08:40)
[2022-06-04] MEDS: metOLazone 5 MG TAB PO SCH (09:52)
[2022-06-04] MEDS: busPIRone 10 MG TAB PO SCH ×2 (09:52→21:09)
[2022-06-04] MEDS: CitaloPRAM (CeleXA) 20 MG TAB PO SCH (09:52)
[2022-06-04] MEDS: PANTOPRAZOLE 40MG TAB (PROTONIX) PO SCH (09:52)
[2022-06-04] MEDS: METOPROLOL TART 12.5 MG PER 1/2 TAB PO SCH ×2 (09:52→21:09)
[2022-06-04] MEDS: ASPIRIN 81 MG CHEW TABLET PO SCH (09:52)
[2022-06-04] MEDS: FUROSEMIDE 40MG/4ML VIAL (J1940) IV SCH ×2 (09:53→18:06)
[2022-06-04] MEDS: methylPREDNISolone 40MG 1ML VIAL IV SCH (15:26)
[2022-06-04] MEDS: SIMVASTATIN 20 MG TAB PO SCH (21:09)
[2022-06-05] VITALS (9 sets, daily range): BP systolic 130–154; BP diastolic 57–78; O2SAT 91–95
[2022-06-05] MEDS: ACETAMINOPHEN TAB 650MG DOSE (2X325MG) PO PRN ×3 (01:05→20:35)
[2022-06-05] MEDS: IPRATROPIUM 0.5MG/ALBUTEROL 2.5MG INH SOL UD 3ML (DUONEB) NEB SCH ×4 (01:09→20:21)
[2022-06-05 04:34] LABS: HEMATOCRIT 31.6 % (36.0-47.0); HEMOGLOBIN 9.8 g/dl (12.0-15.5); LYMPH # 0.3 10^3/uL (1.5-5.0); LYMPH % 3.7 % (24.0-44.0); MEAN CORPUSCULAR HEMOGLOBIN 32.6 pg (27.0-33.0); MONO # 0.5 10^3/uL (0.0-0.8); MONO % 6.1 % (2.0-8.0); NEUTROPHILS # 7.1 10^3/uL (1.5-8.5); NEUTROPHILS % 89.7 % (36.0-66.0); PLATELET COUNT, AUTOMATED 283 10^3/uL (150-450); RED BLOOD COUNT 3.01 10^6/uL (4.00-5.40); WHITE BLOOD COUNT 7.9 10^3/uL (4.0-10.0)
[2022-06-05 05:00] LABS: CALCIUM LEVEL 8.9 MG/DL (8.8-10.2); CREATININE FOR GFR 1.56 MG/DL (0.55-1.30); GLOMERULAR FILTRATION RATE 33.9 (>32); MAGNESIUM LEVEL 2.2 MG/DL (1.8-2.4); POTASSIUM SERUM 4.1 MEQ/L (3.5-5.1)
[2022-06-05] MEDS: LEVOTHYROXINE 75MCG TABLET (0.075MG) PO SCH (05:29)
[2022-06-05] MEDS: HEPARIN SOD (PORCINE) 5000UNITS/ML 1ML VIAL/SYRINGE SC SCH ×2 (05:30→18:15)
[2022-06-05] MEDS: SYMBICORT 160/4.5MCG INHALER 6GM INH SCH ×2 (07:10→20:22)
[2022-06-05] MEDS: FUROSEMIDE 40MG/4ML VIAL (J1940) IV SCH (11:06)
[2022-06-05] MEDS: metOLazone 5 MG TAB PO SCH (11:09)
[2022-06-05] MEDS: METOPROLOL TART 12.5 MG PER 1/2 TAB PO SCH ×2 (11:11→20:35)
[2022-06-05] MEDS: ASPIRIN 81 MG CHEW TABLET PO SCH (11:11)
[2022-06-05] MEDS: busPIRone 10 MG TAB PO SCH ×2 (11:12→20:35)
[2022-06-05] MEDS: predniSONE 20 MG TAB PO SCH (11:12)
[2022-06-05] MEDS: CitaloPRAM (CeleXA) 20 MG TAB PO SCH (11:12)
[2022-06-05] MEDS: PANTOPRAZOLE 40MG TAB (PROTONIX) PO SCH (11:12)
[2022-06-05] MEDS: FUROSEMIDE 100MG/10ML VIAL (J1940) IV SCH (18:15)
[2022-06-05] MEDS: SIMVASTATIN 20 MG TAB PO SCH (20:34)
[2022-06-06] VITALS (11 sets, daily range): BP systolic 129–154; BP diastolic 60–66; O2SAT 89–96
[2022-06-06] MEDS: IPRATROPIUM 0.5MG/ALBUTEROL 2.5MG INH SOL UD 3ML (DUONEB) NEB SCH ×4 (01:16→19:07)
[2022-06-06] MEDS: FUROSEMIDE 100MG/10ML VIAL (J1940) IV SCH ×3 (02:11→17:42)
[2022-06-06 05:40] LABS: HEMATOCRIT 33.6 % (36.0-47.0); HEMOGLOBIN 10.3 g/dl (12.0-15.5); MEAN CORPUSCULAR HEMOGLOBIN 31.9 pg (27.0-33.0); MEAN CORPUSCULAR HGB CONC 30.7 g/dl (32.0-36.5); PLATELET COUNT, AUTOMATED 311 10^3/uL (150-450); RED BLOOD COUNT 3.23 10^6/uL (4.00-5.40); WHITE BLOOD COUNT 9.8 10^3/uL (4.0-10.0)
[2022-06-06] MEDS: LEVOTHYROXINE 75MCG TABLET (0.075MG) PO SCH (06:07)
[2022-06-06] MEDS: HEPARIN SOD (PORCINE) 5000UNITS/ML 1ML VIAL/SYRINGE SC SCH ×2 (06:07→17:43)
[2022-06-06 06:22] LABS: ALBUMIN 2.7 GM/DL (3.2-5.2); BILIRUBIN,TOTAL 0.5 MG/DL (0.2-1.0); CALCIUM LEVEL 9.3 MG/DL (8.8-10.2); CREATININE FOR GFR 1.58 MG/DL (0.55-1.30); GLOMERULAR FILTRATION RATE 33.4 (>32); POTASSIUM SERUM 3.6 MEQ/L (3.5-5.1); TOTAL PROTEIN 6.1 GM/DL (6.4-8.2)
[2022-06-06] MEDS: SYMBICORT 160/4.5MCG INHALER 6GM INH SCH ×2 (07:52→19:07)
[2022-06-06] MEDS: PANTOPRAZOLE 40MG TAB (PROTONIX) PO SCH (09:33)
[2022-06-06] MEDS: predniSONE 20 MG TAB PO SCH (09:33)
[2022-06-06] MEDS: CitaloPRAM (CeleXA) 20 MG TAB PO SCH (09:33)
[2022-06-06] MEDS: busPIRone 10 MG TAB PO SCH ×2 (09:33→21:24)
[2022-06-06] MEDS: ASPIRIN 81 MG CHEW TABLET PO SCH (09:33)
[2022-06-06] MEDS: METOPROLOL TART 12.5 MG PER 1/2 TAB PO SCH ×2 (09:34→21:24)
[2022-06-06] MEDS: PERCOCET 5MG/325MG TAB PO PRN (18:07)
[2022-06-06] MEDS: oxyBUTYnin 5 MG TAB PO SCH (21:24)
[2022-06-06] MEDS: SIMVASTATIN 20 MG TAB PO SCH (21:24)
[2022-06-06] MEDS: ACETAMINOPHEN TAB 650MG DOSE (2X325MG) PO PRN (23:13)
[2022-06-07] MEDS: PERCOCET 5MG/325MG TAB PO PRN ×3 (00:05→21:48)
[2022-06-07] MEDS: IPRATROPIUM 0.5MG/ALBUTEROL 2.5MG INH SOL UD 3ML (DUONEB) NEB SCH ×5 (01:43→20:23)
[2022-06-07] MEDS: FUROSEMIDE 100MG/10ML VIAL (J1940) IV SCH (01:55)
[2022-06-07] MEDS ORDERED: MORPHINE 2 MG/ML 1ML VIAL IV ONE ×2 (02:00→23:00)
[2022-06-07 04:00] VITALS: BP 136/63
[2022-06-07] MEDS: HEPARIN SOD (PORCINE) 5000UNITS/ML 1ML VIAL/SYRINGE SC SCH ×2 (06:35→18:32)
[2022-06-07] MEDS: LEVOTHYROXINE 75MCG TABLET (0.075MG) PO SCH (06:35)
[2022-06-07] MEDS: SYMBICORT 160/4.5MCG INHALER 6GM INH SCH ×3 (07:46→20:23)
[2022-06-07 08:00] VITALS: BP 130/59
[2022-06-07 08:38] LABS: HEMATOCRIT 34.2 % (36.0-47.0); HEMOGLOBIN 10.5 g/dl (12.0-15.5); MEAN CORPUSCULAR HEMOGLOBIN 32.3 pg (27.0-33.0); MEAN CORPUSCULAR HGB CONC 30.7 g/dl (32.0-36.5); MEAN CORPUSCULAR VOLUME 105.2 fl (80.0-96.0); PLATELET COUNT, AUTOMATED 356 10^3/uL (150-450); RED BLOOD COUNT 3.25 10^6/uL (4.00-5.40); WHITE BLOOD COUNT 10.2 10^3/uL (4.0-10.0)
[2022-06-07] MEDS ORDERED: FUROSEMIDE 100MG/10ML VIAL (J1940) IV SCH (09:00)
[2022-06-07 09:13] VITALS: BP 127/60
[2022-06-07 09:19] LABS: ALBUMIN 2.6 GM/DL (3.2-5.2); BILIRUBIN,TOTAL 0.5 MG/DL (0.2-1.0); CALCIUM LEVEL 9.2 MG/DL (8.8-10.2); CREATININE FOR GFR 1.76 MG/DL (0.55-1.30); GLOMERULAR FILTRATION RATE 29.5 (>32); POTASSIUM SERUM 2.7 MEQ/L (3.5-5.1); TOTAL PROTEIN 6.2 GM/DL (6.4-8.2)
[2022-06-07] MEDS: PANTOPRAZOLE 40MG TAB (PROTONIX) PO SCH (09:26)
[2022-06-07] MEDS: busPIRone 10 MG TAB PO SCH ×2 (09:26→20:41)
[2022-06-07] MEDS: ASPIRIN 81 MG CHEW TABLET PO SCH (09:26)
[2022-06-07] MEDS: CitaloPRAM (CeleXA) 20 MG TAB PO SCH (09:26)
[2022-06-07] MEDS ORDERED: POTASSIUM CHLORIDE 10MEQ SR TABLET PO ONE ×2 (10:00→12:00)
[2022-06-07] MEDS: METOPROLOL TART 12.5 MG PER 1/2 TAB PO SCH ×2 (10:19→20:41)
[2022-06-07 12:00] VITALS: BP 130/62
[2022-06-07] MEDS: SENNA 8.6 MG TAB (SENOKOT) PO PRN (15:18)
[2022-06-07 16:00] VITALS: BP 125/63
[2022-06-07] MEDS ORDERED: PANT40TA29 PO (17:19)
[2022-06-07] MEDS ORDERED: PERCOCET PO (17:19)
[2022-06-07] MEDS ORDERED: MIRA1POW3 PO (17:19)
[2022-06-07] MEDS ORDERED: METO1TAB87 PO (17:19)
[2022-06-07] MEDS ORDERED: LASI20TA3 PO (17:21)
[2022-06-07 18:07] LABS: CREATININE FOR GFR 1.86 MG/DL (0.55-1.30); GLOMERULAR FILTRATION RATE 27.7 (>32); POTASSIUM SERUM 3.5 MEQ/L (3.5-5.1)
[2022-06-07 20:00] VITALS: BP 118/56
[2022-06-07] MEDS: SIMVASTATIN 20 MG TAB PO SCH (20:40)
[2022-06-07] MEDS: oxyBUTYnin 5 MG TAB PO SCH (20:41)
[2022-06-07] MEDS: NYSTATIN 100,000 UNITS/GM TOPICAL PWD 15 GM TOP SCH (22:40)
[2022-06-08 00:23] VITALS: BP 112/57
[2022-06-08] MEDS: IPRATROPIUM 0.5MG/ALBUTEROL 2.5MG INH SOL UD 3ML (DUONEB) NEB SCH ×2 (01:25→07:33)
[2022-06-08 04:00] VITALS: BP 149/65
[2022-06-08] MEDS: LEVOTHYROXINE 75MCG TABLET (0.075MG) PO SCH (05:53)
[2022-06-08] MEDS: HEPARIN SOD (PORCINE) 5000UNITS/ML 1ML VIAL/SYRINGE SC SCH (05:53)
[2022-06-08 07:15] LABS: HEMATOCRIT 33.3 % (36.0-47.0); HEMOGLOBIN 10.1 g/dl (12.0-15.5); MEAN CORPUSCULAR HEMOGLOBIN 31.8 pg (27.0-33.0); MEAN CORPUSCULAR HGB CONC 30.3 g/dl (32.0-36.5); MEAN CORPUSCULAR VOLUME 104.7 fl (80.0-96.0); PLATELET COUNT, AUTOMATED 399 10^3/uL (150-450); RED BLOOD COUNT 3.18 10^6/uL (4.00-5.40); WHITE BLOOD COUNT 8.3 10^3/uL (4.0-10.0)
[2022-06-08] MEDS: SYMBICORT 160/4.5MCG INHALER 6GM INH SCH (07:33)
[2022-06-08] MEDS ORDERED: LASI20TA3 PO (07:38)
[2022-06-08 07:48] LABS: ALBUMIN 2.5 GM/DL (3.2-5.2); BILIRUBIN,TOTAL 0.5 MG/DL (0.2-1.0); CALCIUM LEVEL 8.8 MG/DL (8.8-10.2); CREATININE FOR GFR 1.8 MG/DL (0.55-1.30); GLOMERULAR FILTRATION RATE 28.7 (>32); POTASSIUM SERUM 4.1 MEQ/L (3.5-5.1); TOTAL PROTEIN 5.7 GM/DL (6.4-8.2)
[2022-06-08 08:00] VITALS: BP 132/60
[2022-06-08] MEDS: busPIRone 10 MG TAB PO SCH (10:25)
[2022-06-08] MEDS: CitaloPRAM (CeleXA) 20 MG TAB PO SCH (10:25)
[2022-06-08 10:27] VITALS: BP 132/60
[2022-06-08] MEDS: METOPROLOL TART 12.5 MG PER 1/2 TAB PO SCH (10:27)
[2022-06-08] MEDS: PANTOPRAZOLE 40MG TAB (PROTONIX) PO SCH (10:28)
[2022-06-08] MEDS: NYSTATIN 100,000 UNITS/GM TOPICAL PWD 15 GM TOP SCH (10:28)
[2022-06-08] MEDS: ASPIRIN 81 MG CHEW TABLET PO SCH (10:28)
== END 2022-06-08 12:28 | DRG 562 ==
LOC: M ED 00:42 → M ED INP 04:42 → ENRESERV 10:23 → M PCU 11:56
PROVIDERS: ADMIT Internal Medicine; ATTEND Internal Medicine Nephrology
PROC: 0QSGXZZ Reposition Right Tibia, External Approach (ICD-10-PCS; 2022-05-30)
PROC: 0QSJXZZ Reposition Right Fibula, External Approach (ICD-10-PCS; 2022-05-30)
PROC: 2W3LX2Z Immobilization of Right Lower Extremity using Cast (ICD-10-PCS; 2022-05-30)
PROC: BQ1DZZZ Fluoroscopy of Right Lower Leg (ICD-10-PCS; principal; 2022-05-30 16:00)
DX: S82.301A Unspecified fracture of lower end of right tibia, initial encounter for closed fracture (principal); I50.23 Acute on chronic systolic (congestive) heart failure; N17.9 Acute kidney failure, unspecified; J44.1 Chronic obstructive pulmonary disease with (acute) exacerbation; I13.0 Hypertensive heart and chronic kidney disease with heart failure and stage 1 through stage 4 chronic kidney disease, or unspecified chronic kidney disease; S82.421A Displaced transverse fracture of shaft of right fibula, initial encounter for closed fracture; M10.9 Gout, unspecified; F41.9 Anxiety disorder, unspecified; F32.A Depression, unspecified; K21.9 Gastro-esophageal reflux disease without esophagitis; E03.9 Hypothyroidism, unspecified; N32.81 Overactive bladder; E78.5 Hyperlipidemia, unspecified; R26.89 Other abnormalities of gait and mobility; R29.6 Repeated falls; I27.20 Pulmonary hypertension, unspecified; N18.30 Chronic kidney disease, stage 3 unspecified; D63.1 Anemia in chronic kidney disease; Z79.82 Long term (current) use of aspirin; Z79.890 Hormone replacement therapy; Z79.899 Other long term (current) drug therapy; Z91.041 Radiographic dye allergy status; Z86.73 Personal history of transient ischemic attack (TIA), and cerebral infarction without residual deficits; Z90.49 Acquired absence of other specified parts of digestive tract; Z87.891 Personal history of nicotine dependence; W01.0XXA Fall on same level from slipping, tripping and stumbling without subsequent striking against object, initial encounter; Y92.009 Unspecified place in unspecified non-institutional (private) residence as the place of occurrence of the external cause; Z20.822 Contact with and (suspected) exposure to COVID-19; I44.7 Left bundle-branch block, unspecified; E87.6 Hypokalemia; T50.2X5A Adverse effect of carbonic-anhydrase inhibitors, benzothiadiazides and other diuretics, initial encounter; R09.02 Hypoxemia

== ENCOUNTER 2022-06-24 09:07 | Emergency (ER) | payer MEDICAID, MEDICARE ==
[~2022-06-24 09:07] MED LIST changes: +LASI20TA3 PO; +MIRA1POW3 PO; +PANT40TA29 PO; +PERCOCET PO
[2022-06-24] MEDS ORDERED: CIPROFLOXACIN 0.3% OPHTH SOLN 2.5ML OS ONE (09:50)
[2022-06-24] MEDS ORDERED: CILO0.3S OS (09:56)
[2022-06-24 10:02] VITALS: BP 176/75
== END 2022-06-24 10:11 | disposition home or self-care (01) ==
LOC: M ED 09:07
DX: H10.32 Unspecified acute conjunctivitis, left eye (principal); I50.9 Heart failure, unspecified; I11.0 Hypertensive heart disease with heart failure; E78.5 Hyperlipidemia, unspecified; J44.9 Chronic obstructive pulmonary disease, unspecified

== ENCOUNTER → 2022-07-02 | Outpatient (REF) | payer MEDICARE ==
[~2022-07-02] MED LIST changes: +CILO0.3S OS
== END ==
LOC: M SOG 13:03 → EDSTATUS 07-05 08:41
PROVIDERS: ATTEND Orthopaedic Surgery Adult Reconstructive Orthopaedic Surgery
DX: M79.661 Pain in right lower leg (principal); Z48.89 Encounter for other specified surgical aftercare

== ENCOUNTER → 2022-07-02 | Outpatient (REF) ==
[2022-07-02 08:24] LABS: CALCIUM LEVEL 9.6 MG/DL (8.8-10.2); CREATININE FOR GFR 1.51 MG/DL (0.55-1.30); GLOMERULAR FILTRATION RATE 35.2 (>32); POTASSIUM SERUM 3.6 MEQ/L (3.5-5.1)
[2022-07-02 14:56] LABS: THYROID STIMULATING HORMONE 7.47 uIU/ML (0.358-3.740)
== END ==
LOC: SKLAB7 07:00
PROVIDERS: ATTEND Nurse Practitioner Family
DX: I50.9 Heart failure, unspecified (principal)

== ENCOUNTER → 2022-08-14 | Outpatient (REF) | payer MEDICARE ==
[~2022-08-14] MED LIST changes: -BUSP-29 PO; +BUSP10TA79 PO; +CLOP75TA99 PO; -PLAV1TAB2 PO
== END ==
LOC: SKLAB7 11:40
PROVIDERS: ATTEND Nurse Practitioner Family
DX: S82.451D Displaced comminuted fracture of shaft of right fibula, subsequent encounter for closed fracture with routine healing (principal); S82.391D Other fracture of lower end of right tibia, subsequent encounter for closed fracture with routine healing

== ENCOUNTER → 2022-08-23 | Outpatient (REF) | payer MEDICARE ==
[2022-08-23 08:05] LABS: HEMATOCRIT 31.6 % (36.0-47.0); HEMOGLOBIN 9.6 g/dl (12.0-15.5); MEAN CORPUSCULAR HEMOGLOBIN 32.7 pg (27.0-33.0); MEAN CORPUSCULAR HGB CONC 30.4 g/dl (32.0-36.5); MEAN CORPUSCULAR VOLUME 107.5 fl (80.0-96.0); PLATELET COUNT, AUTOMATED 197 10^3/uL (150-450); RED BLOOD COUNT 2.94 10^6/uL (4.00-5.40); WHITE BLOOD COUNT 5.3 10^3/uL (4.0-10.0)
[2022-08-23 08:14] LABS: URIC ACID 9.6 MG/DL (3.1-7.8)
[2022-08-23 08:17] LABS: ALBUMIN 2.8 G/DL (3.2-5.2); CALCIUM LEVEL 8.9 MG/DL (8.3-10.6); CREATININE FOR GFR 1.91 MG/DL (0.55-1.30); GLOMERULAR FILTRATION RATE 26.8 (>32); PHOSPHORUS LEVEL 4.9 MG/DL (2.4-5.1); POTASSIUM SERUM 4.2 MMOL/L (3.5-5.1)
== END ==
LOC: SKLAB7 13:58
PROVIDERS: ATTEND Nurse Practitioner Family
DX: N18.6 End stage renal disease (principal)

== ENCOUNTER → 2022-08-29 | Outpatient (REF) | payer MEDICARE ==
[2022-08-29 15:56] LABS: PERCENT SATURATION 23.2 % (13.2-45.0)
[2022-08-29 15:57] LABS: FERRITIN 56.3 NG/ML (7.3-270.7)
== END ==
LOC: SKLAB7 14:03
PROVIDERS: ATTEND Nurse Practitioner Family
DX: D50.9 Iron deficiency anemia, unspecified (principal)

== ENCOUNTER → 2022-10-03 | Outpatient (REF) | payer MEDICARE | LOC: SKLAB7 07:20 | PROVIDERS: ATTEND Internal Medicine | DX: Z01.818 Encounter for other preprocedural examination (principal); I51.7 Cardiomegaly; J98.4 Other disorders of lung ==

== ENCOUNTER → 2022-10-04 | Outpatient (REF) | payer MEDICARE ==
[2022-10-04 08:39] LABS: HEMATOCRIT 29.7 % (36.0-47.0); HEMOGLOBIN 9.1 g/dl (12.0-15.5); MEAN CORPUSCULAR HEMOGLOBIN 33.7 pg (27.0-33.0); MEAN CORPUSCULAR HGB CONC 30.6 g/dl (32.0-36.5); PLATELET COUNT, AUTOMATED 168 10^3/uL (150-450); WHITE BLOOD COUNT 4.4 10^3/uL (4.0-10.0)
[2022-10-04 09:05] LABS: CALCIUM LEVEL 8.8 MG/DL (8.3-10.6); CREATININE FOR GFR 1.88 MG/DL (0.55-1.30); GLOMERULAR FILTRATION RATE 27.3 (>32); POTASSIUM SERUM 4.1 MMOL/L (3.5-5.1)
[2022-10-04 09:07] LABS: THYROID STIMULATING HORMONE 3.919 uIU/ML (0.55-4.78); URIC ACID 6.4 MG/DL (3.1-7.8)
== END ==
LOC: SKLAB7 07:00
PROVIDERS: ATTEND Internal Medicine
DX: I50.9 Heart failure, unspecified (principal)

== ENCOUNTER → 2022-10-09 | Outpatient (REF) | payer MEDICARE | LOC: SKLAB7 15:02 | PROVIDERS: ATTEND Internal Medicine | DX: Z01.818 Encounter for other preprocedural examination (principal); Z20.822 Contact with and (suspected) exposure to COVID-19 ==

== ENCOUNTER → 2022-10-12 | Outpatient (REF) | payer MEDICARE ==
[~2022-10-12] MED LIST changes: +ATOR40TA75 PO; +DULC10SU2 PR; +ENTR1TAB7 PO; +LASI40TA9 PO; +MILKSUS10 PO; +OMEP40CA4 PO; +PRAZ1CAP PO; +ROPI0.253 PO
== END ==
LOC: SKLAB7 13:01
PROVIDERS: ATTEND Internal Medicine
DX: Z01.818 Encounter for other preprocedural examination (principal); Z20.822 Contact with and (suspected) exposure to COVID-19

== ENCOUNTER 2022-10-15 11:12 | Day surgery (SDC) | payer MEDICARE, MEDICAID ==
[~2022-10-15] VITALS: Ht 152.4 cm; Wt 82.6 kg
[~2022-10-15 11:12] MED LIST changes: +ACETYLCHOLINE OPHTH SOLN 1% 2ML (MIOCHOL-E) As Ordered ONE; +LIDOCAINE 2% W/EPINEPHRINE 20ML VIAL **PRES FREE As Ordered ONE; +LIDOCAINE 3.5 % 1ML OPHTH TOPICAL GEL OU ONE; +TOBRADEX OPHTH OINT 3.5 GM As Ordered ONE
[2022-10-15] MEDS ORDERED: POVIDONE-IODINE 5% OPHTH PREP SOL 30ML As Ordered ONE (12:06)
[2022-10-15] MEDS ORDERED: MIDAZOLAM INJ 2MG/2ML VIAL As Ordered ONE (12:12)
[2022-10-15] MEDS ORDERED: fentaNYL 100 MCG/2 ML INJECTION As Ordered ONE (12:13)
[2022-10-15 12:42] VITALS: BP 138/67
== END 2022-10-15 13:15 | disposition home or self-care (01) ==
LOC: M SDC 11:12
PROVIDERS: ATTEND Ophthalmology
DX: H02.005 Unspecified entropion of left lower eyelid (principal); J44.9 Chronic obstructive pulmonary disease, unspecified; I13.0 Hypertensive heart and chronic kidney disease with heart failure and stage 1 through stage 4 chronic kidney disease, or unspecified chronic kidney disease; I50.40 Unspecified combined systolic (congestive) and diastolic (congestive) heart failure; E11.22 Type 2 diabetes mellitus with diabetic chronic kidney disease; E03.9 Hypothyroidism, unspecified; I27.20 Pulmonary hypertension, unspecified; F32.A Depression, unspecified; F41.1 Generalized anxiety disorder; K21.9 Gastro-esophageal reflux disease without esophagitis; D63.1 Anemia in chronic kidney disease; E78.00 Pure hypercholesterolemia, unspecified; Z79.899 Other long term (current) drug therapy; Z79.82 Long term (current) use of aspirin; Z79.890 Hormone replacement therapy; Z79.51 Long term (current) use of inhaled steroids; Z87.891 Personal history of nicotine dependence; Z91.041 Radiographic dye allergy status
CPT/HCPCS: 67923; 88302; J2250; J3010

== ENCOUNTER → 2022-10-30 | Outpatient (REF) | payer MEDICARE, MEDICAID ==
[~2022-10-30] MED LIST changes: -ACETYLCHOLINE OPHTH SOLN 1% 2ML (MIOCHOL-E) As Ordered ONE; -LIDOCAINE 2% W/EPINEPHRINE 20ML VIAL **PRES FREE As Ordered ONE; -LIDOCAINE 3.5 % 1ML OPHTH TOPICAL GEL OU ONE; -TOBRADEX OPHTH OINT 3.5 GM As Ordered ONE
[2022-10-30 06:55] LABS: HEMATOCRIT 30.8 % (36.0-47.0); HEMOGLOBIN 9.8 g/dl (12.0-15.5); MEAN CORPUSCULAR HEMOGLOBIN 35.1 pg (27.0-33.0); MEAN CORPUSCULAR HGB CONC 31.8 g/dl (32.0-36.5); MEAN CORPUSCULAR VOLUME 110.4 fl (80.0-96.0); PLATELET COUNT, AUTOMATED 174 10^3/uL (150-450); RED BLOOD COUNT 2.79 10^6/uL (4.00-5.40); WHITE BLOOD COUNT 4.9 10^3/uL (4.0-10.0)
[2022-10-30 08:05] LABS: ALBUMIN 3.2 G/DL (3.2-5.2); CALCIUM LEVEL 9.3 MG/DL (8.3-10.6); CREATININE FOR GFR 2.08 MG/DL (0.55-1.30); GLOMERULAR FILTRATION RATE 24.3 (>32); PHOSPHORUS LEVEL 5.5 MG/DL (2.4-5.1); POTASSIUM SERUM 4.4 MMOL/L (3.5-5.1); PTH INTACT 41.9 PG/ML (18.5-88.0)
== END ==
LOC: SKLAB7 07:00
PROVIDERS: ATTEND Internal Medicine
DX: N17.9 Acute kidney failure, unspecified (principal)

== ENCOUNTER → 2022-12-04 | Outpatient (REF) | payer MEDICARE, MEDICAID ==
[2022-12-04 17:58] LABS: ALBUMIN 3.2 G/DL (3.2-5.2); ALKALINE PHOSPHATASE 63 U/L (46-116); ALT/SGPT < 9 U/L (7.0-40); AST/SGOT 26 U/L (<34); BILIRUBIN,TOTAL 0.3 MG/DL (0.3-1.2); BLOOD UREA NITROGEN 90 MG/DL (9-23); CARBON DIOXIDE LEVEL 28 MMOL/L (20-31); CHLORIDE LEVEL 103 MMOL/L (98-107); CREATININE FOR GFR 2.71 MG/DL (0.55-1.30); GLOMERULAR FILTRATION RATE 17.9 (>32); GLUCOSE, FASTING 104 MG/DL (74-106); MAGNESIUM LEVEL 2.1 MG/DL (1.8-2.4); POTASSIUM SERUM 4.6 MMOL/L (3.5-5.1); SODIUM LEVEL 139 MMOL/L (136-145); TOTAL PROTEIN 6.1 G/DL (5.7-8.2)
== END ==
LOC: SKLAB7 13:59
PROVIDERS: ATTEND Internal Medicine
DX: R25.2 Cramp and spasm (principal)

== ENCOUNTER → 2022-12-25 | Outpatient (CLI) | payer MEDICARE, MEDICAID | LOC: M PLAIMG 09:27 | PROVIDERS: ATTEND Nurse Practitioner Adult Health | DX: S09.90XA Unspecified injury of head, initial encounter (principal); W19.XXXA Unspecified fall, initial encounter; Y92.89 Other specified places as the place of occurrence of the external cause; Y93.89 Activity, other specified; Y99.8 Other external cause status ==

== ENCOUNTER → 2022-12-25 | Outpatient (REF) | payer MEDICARE, MEDICAID ==
[~2022-12-25] MED LIST changes: +CEPH500C PO
== END ==
LOC: SKLAB7 10:30
PROVIDERS: ATTEND Internal Medicine
DX: M19.042 Primary osteoarthritis, left hand (principal); S09.90XA Unspecified injury of head, initial encounter; W19.XXXA Unspecified fall, initial encounter; Y92.89 Other specified places as the place of occurrence of the external cause; Y93.89 Activity, other specified; Y99.8 Other external cause status

== ENCOUNTER → 2022-12-27 | Outpatient (REF) | payer MEDICARE, MEDICAID ==
[~2022-12-27] MED LIST changes: -CEPH500C PO
[2022-12-27 07:41] LABS: BASO % 0.5 % (0.0-1.0); EOS # 0.4 10^3/uL (0.0-0.5); HEMATOCRIT 29.4 % (36.0-47.0); HEMOGLOBIN 9.5 g/dl (12.0-15.5); LYMPH # 0.6 10^3/uL (1.5-5.0); LYMPH % 13.8 % (24.0-44.0); MEAN CORPUSCULAR HEMOGLOBIN 35.2 pg (27.0-33.0); MEAN CORPUSCULAR HGB CONC 32.3 g/dl (32.0-36.5); MEAN CORPUSCULAR VOLUME 108.9 fl (80.0-96.0); MONO # 0.4 10^3/uL (0.0-0.8); MONO % 10.4 % (2.0-8.0); NEUTROPHILS # 2.7 10^3/uL (1.5-8.5); NEUTROPHILS % 66.1 % (36.0-66.0); PLATELET COUNT, AUTOMATED 195 10^3/uL (150-450); WHITE BLOOD COUNT 4.1 10^3/uL (4.0-10.0)
[2022-12-27 08:06] LABS: ALBUMIN 2.9 G/DL (3.2-5.2); CALCIUM LEVEL 8.9 MG/DL (8.3-10.6); CREATININE FOR GFR 2.72 MG/DL (0.55-1.30); GLOMERULAR FILTRATION RATE 17.8 (>32); PHOSPHORUS LEVEL 5.1 MG/DL (2.4-5.1); POTASSIUM SERUM 4.3 MMOL/L (3.5-5.1)
[2022-12-27 08:07] LABS: PTH INTACT 54.3 PG/ML (18.5-88.0)
== END ==
LOC: SKLAB7 07:00
PROVIDERS: ATTEND Internal Medicine
DX: N18.9 Chronic kidney disease, unspecified (principal)

== ENCOUNTER → 2023-01-22 | Outpatient (CLI) | payer MEDICARE, MEDICAID | LOC: M RAD 09:44 | PROVIDERS: ATTEND Nurse Practitioner Family | DX: S00.83XA Contusion of other part of head, initial encounter (principal); W19.XXXA Unspecified fall, initial encounter; Y92.89 Other specified places as the place of occurrence of the external cause; Y93.89 Activity, other specified; Y99.8 Other external cause status ==

== ENCOUNTER → 2023-01-31 | Outpatient (REF) | payer MEDICARE, MEDICAID ==
[~2023-01-31] MED LIST changes: +CEPH500C PO
[2023-01-31 09:05] LABS: BASO % 0.4 % (0.0-1.0); EOS # 0.4 10^3/uL (0.0-0.5); EOS % 7.8 % (0.0-3.0); HEMATOCRIT 29.9 % (36.0-47.0); HEMOGLOBIN 9.5 g/dl (12.0-15.5); LYMPH # 0.5 10^3/uL (1.5-5.0); LYMPH % 9.8 % (24.0-44.0); MEAN CORPUSCULAR HEMOGLOBIN 35.8 pg (27.0-33.0); MEAN CORPUSCULAR HGB CONC 31.8 g/dl (32.0-36.5); MEAN CORPUSCULAR VOLUME 112.8 fl (80.0-96.0); MONO # 0.3 10^3/uL (0.0-0.8); NEUTROPHILS # 4.2 10^3/uL (1.5-8.5); NEUTROPHILS % 75.5 % (36.0-66.0); PLATELET COUNT, AUTOMATED 242 10^3/uL (150-450); RED BLOOD COUNT 2.65 10^6/uL (4.00-5.40); WHITE BLOOD COUNT 5.5 10^3/uL (4.0-10.0)
[2023-01-31 09:20] LABS: URIC ACID 5.5 MG/DL (3.1-7.8)
[2023-01-31 09:23] LABS: ALBUMIN 3.2 G/DL (3.2-5.2); CALCIUM LEVEL 9.3 MG/DL (8.3-10.6); CREATININE FOR GFR 2.18 MG/DL (0.55-1.30); PERCENT SATURATION 16.1 % (13.2-45.0); PHOSPHORUS LEVEL 4.3 MG/DL (2.4-5.1); POTASSIUM SERUM 4.7 MMOL/L (3.5-5.1)
[2023-01-31 09:25] LABS: FERRITIN 51.2 NG/ML (7.3-270.7)
[2023-01-31 09:38] LABS: HEMOGLOBIN A1c 5.6 % (4.0-6.0)
== END ==
LOC: SKLAB7 13:57
PROVIDERS: ATTEND Internal Medicine
DX: N18.9 Chronic kidney disease, unspecified (principal); Z79.899 Other long term (current) drug therapy

== ENCOUNTER 2023-02-01 17:50 | Emergency (ER) | payer MEDICARE, MEDICAID ==
[~2023-02-01] VITALS: Ht 157.5 cm; Wt 87.3 kg
[~2023-02-01 17:50] MED LIST changes: -CEPH500C PO
[2023-02-01] MEDS ORDERED: fentaNYL 100 MCG/2 ML INJECTION IV ONE (18:10)
[2023-02-01] MEDS ORDERED: ONDANSETRON 4MG 2ML VIAL IV ONE (18:10)
[2023-02-01] MEDS ORDERED: LIDOCAINE 2% 5ML JELLY UROJET TOP ONE (18:20)
[2023-02-01 19:09] LABS: BASO % 0.4 % (0.0-1.0); EOS # 0.4 10^3/uL (0.0-0.5); EOS % 6.5 % (0.0-3.0); HEMATOCRIT 27.2 % (36.0-47.0); HEMOGLOBIN 8.9 g/dl (12.0-15.5); LYMPH # 0.9 10^3/uL (1.5-5.0); LYMPH % 15.2 % (24.0-44.0); MEAN CORPUSCULAR HEMOGLOBIN 36.3 pg (27.0-33.0); MEAN CORPUSCULAR HGB CONC 32.7 g/dl (32.0-36.5); MONO # 0.6 10^3/uL (0.0-0.8); MONO % 10.8 % (2.0-8.0); NEUTROPHILS # 3.8 10^3/uL (1.5-8.5); NEUTROPHILS % 66.9 % (36.0-66.0); PLATELET COUNT, AUTOMATED 224 10^3/uL (150-450); RED BLOOD COUNT 2.45 10^6/uL (4.00-5.40); WHITE BLOOD COUNT 5.7 10^3/uL (4.0-10.0)
[2023-02-01 19:34] LABS: ALBUMIN 2.8 G/DL (3.2-5.2); BILIRUBIN,DIRECT 0.3 MG/DL (<0.4); BILIRUBIN,TOTAL 0.6 MG/DL (0.3-1.2); CALCIUM LEVEL 8.5 MG/DL (8.3-10.6); CREATININE FOR GFR 1.94 MG/DL (0.55-1.30); GLOMERULAR FILTRATION RATE 26.3 (>32); POTASSIUM SERUM 4.5 MMOL/L (3.5-5.1); TOTAL PROTEIN 5.6 G/DL (5.7-8.2)
[2023-02-01 19:59] LABS: RSV AMPLIFICATION NEGATIVE (NEGATIVE)
[2023-02-01] MEDS ORDERED: cefTRIAXone SOD 1 GM in D5W MINI-BAG PLUS 50 ML IV ONE (20:15)
[2023-02-01] MEDS ORDERED: CEPH500C PO (20:21)
[2023-02-01 20:31] VITALS: BP 144/63
== END 2023-02-01 20:55 | disposition home or self-care (01) ==
LOC: M ED 17:50 → EDBD 17:50 → M ED 20:55
DX: N39.0 Urinary tract infection, site not specified (principal); M25.551 Pain in right hip; I50.20 Unspecified systolic (congestive) heart failure; I25.10 Atherosclerotic heart disease of native coronary artery without angina pectoris; K21.9 Gastro-esophageal reflux disease without esophagitis; Z87.891 Personal history of nicotine dependence; Z91.041 Radiographic dye allergy status; Z79.899 Other long term (current) drug therapy; Z79.82 Long term (current) use of aspirin
CPT/HCPCS: 70450; 71045; 72131; 73502; 73700; 74176; 80047; 80048; 80076; 81001; 82150; 83605; 83690; 85025; 87040; 87088; 87186; 87631; 93005; 93041; 96365; 96375; 99285; J0696; J2405; J3010

== ENCOUNTER → 2023-02-01 | Outpatient (REF) | payer MEDICARE, MEDICAID | LOC: SKLAB5 10:41 | PROVIDERS: ATTEND Internal Medicine | DX: M25.551 Pain in right hip (principal) ==

== ENCOUNTER → 2023-02-07 | Outpatient (REF) | payer MEDICARE, MEDICAID ==
[~2023-02-07] MED LIST changes: +CEPH500C PO
[2023-02-07 09:52] LABS: CALCIUM LEVEL 8.5 MG/DL (8.3-10.6); CREATININE FOR GFR 2.55 MG/DL (0.55-1.30); GLOMERULAR FILTRATION RATE 19.2 (>32); POTASSIUM SERUM 5.3 MMOL/L (3.5-5.1)
== END ==
LOC: SKLAB7 11:00
PROVIDERS: ATTEND Internal Medicine
DX: I50.9 Heart failure, unspecified (principal)

== ENCOUNTER → 2023-02-26 | Outpatient (REF) | payer MEDICARE, MEDICAID ==
[2023-02-26 07:43] LABS: BILIRUBIN,TOTAL 0.5 MG/DL (0.3-1.2); CREATININE FOR GFR 2.15 MG/DL (0.55-1.30); GLOMERULAR FILTRATION RATE 23.4 (>32); POTASSIUM SERUM 4.6 MMOL/L (3.5-5.1); TOTAL PROTEIN 5.7 G/DL (5.7-8.2)
== END ==
LOC: SKLAB7 09:24
PROVIDERS: ATTEND Nurse Practitioner Family
DX: J44.9 Chronic obstructive pulmonary disease, unspecified (principal); N18.9 Chronic kidney disease, unspecified

== ENCOUNTER → 2023-02-28 | Outpatient (REF) | payer MEDICARE, MEDICAID ==
[2023-02-28 09:59] LABS: BASO % 0.4 % (0.0-1.0); EOS # 0.5 10^3/uL (0.0-0.5); EOS % 9.6 % (0.0-3.0); HEMATOCRIT 28.9 % (36.0-47.0); HEMOGLOBIN 9.3 g/dl (12.0-15.5); LYMPH # 0.6 10^3/uL (1.5-5.0); LYMPH % 10.1 % (24.0-44.0); MEAN CORPUSCULAR HEMOGLOBIN 36.6 pg (27.0-33.0); MEAN CORPUSCULAR HGB CONC 32.2 g/dl (32.0-36.5); MEAN CORPUSCULAR VOLUME 113.8 fl (80.0-96.0); MONO # 0.4 10^3/uL (0.0-0.8); MONO % 7.1 % (2.0-8.0); NEUTROPHILS % 72.6 % (36.0-66.0); PLATELET COUNT, AUTOMATED 195 10^3/uL (150-450); RED BLOOD COUNT 2.54 10^6/uL (4.00-5.40); WHITE BLOOD COUNT 5.5 10^3/uL (4.0-10.0)
[2023-02-28 10:25] LABS: ALBUMIN 3.1 G/DL (3.2-5.2); CALCIUM LEVEL 8.4 MG/DL (8.3-10.6); CREATININE FOR GFR 2.12 MG/DL (0.55-1.30); GLOMERULAR FILTRATION RATE 23.7 (>32); PHOSPHORUS LEVEL 4.5 MG/DL (2.4-5.1); POTASSIUM SERUM 4.6 MMOL/L (3.5-5.1)
== END ==
LOC: SKLAB7 07:00
PROVIDERS: ATTEND Internal Medicine
DX: N18.9 Chronic kidney disease, unspecified (principal)

== ENCOUNTER → 2023-03-07 | Outpatient (REF) | payer MEDICARE, MEDICAID ==
[2023-03-07 16:26] LABS: BASO % 0.5 % (0.0-1.0); EOS # 0.5 10^3/uL (0.0-0.5); EOS % 8.5 % (0.0-3.0); HEMATOCRIT 30.3 % (36.0-47.0); HEMOGLOBIN 9.7 g/dl (12.0-15.5); LYMPH # 0.7 10^3/uL (1.5-5.0); MEAN CORPUSCULAR HEMOGLOBIN 36.7 pg (27.0-33.0); MONO # 0.5 10^3/uL (0.0-0.8); MONO % 8.7 % (2.0-8.0); NEUTROPHILS % 70.1 % (36.0-66.0); PLATELET COUNT, AUTOMATED 173 10^3/uL (150-450); RED BLOOD COUNT 2.64 10^6/uL (4.00-5.40); WHITE BLOOD COUNT 5.7 10^3/uL (4.0-10.0)
[2023-03-07 16:55] LABS: MEAN CORPUSCULAR VOLUME 114.8 fl (80.0-96.0)
[2023-03-07 17:18] LABS: PLATELET ESTIMATE NORMAL (NORMAL)
== END ==
LOC: SKLAB4 15:00
PROVIDERS: ATTEND Internal Medicine
DX: Z01.89 Encounter for other specified special examinations (principal); Z79.899 Other long term (current) drug therapy

== ENCOUNTER → 2023-04-10 | Outpatient (REF) | payer MEDICARE, MEDICAID ==
[~2023-04-10] MED LIST changes: -ROPI0.253 PO; +ROPI5TAB19 PO
[2023-04-10 07:19] LABS: HEMATOCRIT 33.3 % (36.0-47.0); HEMOGLOBIN 10.7 g/dl (12.0-15.5); MEAN CORPUSCULAR HEMOGLOBIN 35.5 pg (27.0-33.0); MEAN CORPUSCULAR HGB CONC 32.1 g/dl (32.0-36.5); MEAN CORPUSCULAR VOLUME 110.6 fl (80.0-96.0); PLATELET COUNT, AUTOMATED 176 10^3/uL (150-450); RED BLOOD COUNT 3.01 10^6/uL (4.00-5.40); WHITE BLOOD COUNT 4.2 10^3/uL (4.0-10.0)
== END ==
LOC: SKLAB7 04-09 07:00
PROVIDERS: ATTEND Internal Medicine
DX: Z01.818 Encounter for other preprocedural examination (principal); E07.9 Disorder of thyroid, unspecified

== ENCOUNTER → 2023-04-25 | Outpatient (REF) | payer MEDICARE, MEDICAID ==
[2023-04-25 08:21] LABS: BASO % 0.5 % (0.0-1.0); EOS # 0.4 10^3/uL (0.0-0.5); EOS % 8.8 % (0.0-3.0); HEMATOCRIT 31.8 % (36.0-47.0); HEMOGLOBIN 10.1 g/dl (12.0-15.5); LYMPH # 0.7 10^3/uL (1.5-5.0); LYMPH % 17.2 % (24.0-44.0); MEAN CORPUSCULAR HEMOGLOBIN 35.1 pg (27.0-33.0); MEAN CORPUSCULAR HGB CONC 31.8 g/dl (32.0-36.5); MEAN CORPUSCULAR VOLUME 110.4 fl (80.0-96.0); MONO # 0.4 10^3/uL (0.0-0.8); MONO % 10.5 % (2.0-8.0); NEUTROPHILS # 2.6 10^3/uL (1.5-8.5); NEUTROPHILS % 62.8 % (36.0-66.0); PLATELET COUNT, AUTOMATED 158 10^3/uL (150-450); RED BLOOD COUNT 2.88 10^6/uL (4.00-5.40); WHITE BLOOD COUNT 4.1 10^3/uL (4.0-10.0)
[2023-04-25 08:42] LABS: URIC ACID 6.1 MG/DL (3.1-7.8)
[2023-04-25 08:45] LABS: ALBUMIN 3.1 G/DL (3.2-5.2); CALCIUM LEVEL 8.9 MG/DL (8.3-10.6); CREATININE FOR GFR 1.87 MG/DL (0.55-1.30); GLOMERULAR FILTRATION RATE 27.4 (>32); MAGNESIUM LEVEL 2.3 MG/DL (1.8-2.4); PHOSPHORUS LEVEL 4.2 MG/DL (2.4-5.1); POTASSIUM SERUM 4.5 MMOL/L (3.5-5.1); PTH INTACT 94.9 PG/ML (18.5-88.0)
== END ==
LOC: SKLAB7 07:00
PROVIDERS: ATTEND Internal Medicine
DX: N18.9 Chronic kidney disease, unspecified (principal)

== ENCOUNTER → 2023-05-03 | Outpatient (REF) ==
[2023-05-03 16:28] LABS: CALCIUM LEVEL 8.6 MG/DL (8.3-10.6); CREATININE FOR GFR 2.05 MG/DL (0.55-1.30); GLOMERULAR FILTRATION RATE 24.7 (>32); POTASSIUM SERUM 4.5 MMOL/L (3.5-5.1)
== END ==
LOC: SKLAB7 12:49
PROVIDERS: ATTEND Internal Medicine
DX: R06.02 Shortness of breath (principal)

== ENCOUNTER → 2023-05-07 | Outpatient (REF) | LOC: SKLAB7 15:44 | PROVIDERS: ATTEND Internal Medicine | DX: R60.9 Edema, unspecified (principal); Z53.8 Procedure and treatment not carried out for other reasons ==

== ENCOUNTER → 2023-05-08 | Outpatient (REF) | payer MEDICARE, MEDICAID ==
[2023-05-08 12:03] LABS: HEMATOCRIT 33.8 % (36.0-47.0); HEMOGLOBIN 10.9 g/dl (12.0-15.5); MEAN CORPUSCULAR HEMOGLOBIN 35.7 pg (27.0-33.0); MEAN CORPUSCULAR HGB CONC 32.2 g/dl (32.0-36.5); MEAN CORPUSCULAR VOLUME 110.8 fl (80.0-96.0); PLATELET COUNT, AUTOMATED 176 10^3/uL (150-450); RED BLOOD COUNT 3.05 10^6/uL (4.00-5.40); WHITE BLOOD COUNT 4.7 10^3/uL (4.0-10.0)
[2023-05-08 12:35] LABS: CALCIUM LEVEL 8.6 MG/DL (8.3-10.6); CREATININE FOR GFR 2.25 MG/DL (0.55-1.30); GLOMERULAR FILTRATION RATE 22.2 (>32); POTASSIUM SERUM 4.6 MMOL/L (3.5-5.1)
== END ==
LOC: SKLAB7 11:10
PROVIDERS: ATTEND Internal Medicine
DX: R60.9 Edema, unspecified (principal)

== ENCOUNTER → 2023-05-20 | Outpatient (REF) | payer MEDICARE ==
[2023-05-20 07:18] LABS: BASO % 0.4 % (0.0-1.0); EOS # 0.3 10^3/uL (0.0-0.5); EOS % 5.8 % (0.0-3.0); HEMATOCRIT 33.8 % (36.0-47.0); HEMOGLOBIN 10.9 g/dl (12.0-15.5); LYMPH # 0.7 10^3/uL (1.5-5.0); LYMPH % 14.2 % (24.0-44.0); MEAN CORPUSCULAR HEMOGLOBIN 35.3 pg (27.0-33.0); MEAN CORPUSCULAR HGB CONC 32.2 g/dl (32.0-36.5); MEAN CORPUSCULAR VOLUME 109.4 fl (80.0-96.0); MONO # 0.5 10^3/uL (0.0-0.8); MONO % 10.6 % (2.0-8.0); NEUTROPHILS # 3.4 10^3/uL (1.5-8.5); NEUTROPHILS % 68.6 % (36.0-66.0); PLATELET COUNT, AUTOMATED 168 10^3/uL (150-450); RED BLOOD COUNT 3.09 10^6/uL (4.00-5.40)
[2023-05-20 07:32] LABS: ALBUMIN 3.1 G/DL (3.2-5.2); CALCIUM LEVEL 8.7 MG/DL (8.3-10.6); CREATININE FOR GFR 1.98 MG/DL (0.55-1.30); GLOMERULAR FILTRATION RATE 25.7 (>32); PHOSPHORUS LEVEL 4.1 MG/DL (2.4-5.1); POTASSIUM SERUM 4.1 MMOL/L (3.5-5.1)
== END ==
LOC: SKLAB7 07:00
PROVIDERS: ATTEND Internal Medicine
DX: N18.9 Chronic kidney disease, unspecified (principal)

== ENCOUNTER → 2023-05-27 | Outpatient (CLI) | payer MEDICARE | LOC: M RAD 12:31 | PROVIDERS: ATTEND Internal Medicine | DX: I50.20 Unspecified systolic (congestive) heart failure (principal); J44.9 Chronic obstructive pulmonary disease, unspecified ==

== ENCOUNTER → 2023-07-18 | Outpatient (REF) | payer MEDICARE ==
[~2023-07-18] MED LIST changes: -OXYB5TAB10 PO; +OXYB5TAB11 PO
[2023-07-18 07:40] LABS: HEMATOCRIT 32.6 % (36.0-47.0); HEMOGLOBIN 10.4 g/dl (12.0-15.5); MEAN CORPUSCULAR HGB CONC 31.9 g/dl (32.0-36.5); MEAN CORPUSCULAR VOLUME 112.8 fl (80.0-96.0); PLATELET COUNT, AUTOMATED 197 10^3/uL (150-450); RED BLOOD COUNT 2.89 10^6/uL (4.00-5.40); WHITE BLOOD COUNT 4.8 10^3/uL (4.0-10.0)
[2023-07-18 08:03] LABS: ALBUMIN 3.2 G/DL (3.2-5.2); CALCIUM LEVEL 9.1 MG/DL (8.3-10.6); CREATININE FOR GFR 1.72 MG/DL (0.55-1.30); GLOMERULAR FILTRATION RATE 30.1 (>32); PHOSPHORUS LEVEL 4.4 MG/DL (2.4-5.1); POTASSIUM SERUM 4.7 MMOL/L (3.5-5.1)
[2023-07-18 13:23] LABS: APPEARANCE, URINE HAZY (CLEAR); BACTERIA, URINE AUTO 1+ (NEGATIVE); BILIRUBIN, URINE AUTO NEGATIVE (NEGATIVE); BLOOD, URINE BLOOD NEGATIVE (NEGATIVE); COLOR, URINE YELLOW (YELLOW); GLUCOSE, URINE (UA) AUTO NEGATIVE (NEGATIVE); KETONE, URINE AUTO NEGATIVE (NEGATIVE); LEUKOCYTE ESTERASE, URINE AUTO 3+ (NEGATIVE); MUCUS, URINE SMALL (NEGATIVE); NITRITE, URINE AUTO NEGATIVE (NEGATIVE); PROTEIN, URINE AUTO NEGATIVE (NEGATIVE); RBC, URINE AUTO 0 /HPF (0-3); SPECIFIC GRAVITY URINE AUTO 1.011 (1.002-1.035); SQUAMOUS EPITHELIAL CELL UR AU 0 /HPF (0-6); UROBILINOGEN, URINE AUTO 0.2 mg/dL (0.0-2.0); WBC, URINE AUTO 131 /HPF (0-3)
== END ==
LOC: SKLAB7 07:00
PROVIDERS: ATTEND Internal Medicine
DX: N18.9 Chronic kidney disease, unspecified (principal)

== ENCOUNTER → 2023-07-26 | Outpatient (REF) | payer MEDICARE | LOC: SKLAB7 07:00 | PROVIDERS: ATTEND Internal Medicine | DX: N18.9 Chronic kidney disease, unspecified (principal) ==

== ENCOUNTER → 2023-08-05 | Outpatient (REF) | payer MEDICARE ==
[2023-08-05 08:54] LABS: HEMATOCRIT 35.5 % (36.0-47.0); HEMOGLOBIN 11.3 g/dl (12.0-15.5); MEAN CORPUSCULAR HEMOGLOBIN 36.6 pg (27.0-33.0); MEAN CORPUSCULAR HGB CONC 31.8 g/dl (32.0-36.5); PLATELET COUNT, AUTOMATED 182 10^3/uL (150-450); RED BLOOD COUNT 3.09 10^6/uL (4.00-5.40); WHITE BLOOD COUNT 4.4 10^3/uL (4.0-10.0)
[2023-08-05 08:59] LABS: MEAN CORPUSCULAR VOLUME 114.9 fl (80.0-96.0)
[2023-08-05 09:06] LABS: HEMOGLOBIN A1c 5.3 % (4.0-6.0)
[2023-08-05 09:22] LABS: ALBUMIN 3.4 G/DL (3.2-5.2); BILIRUBIN,TOTAL 0.8 MG/DL (0.3-1.2); CALCIUM LEVEL 9.2 MG/DL (8.3-10.6); CREATININE FOR GFR 2.15 MG/DL (0.55-1.30); GLOMERULAR FILTRATION RATE 23.3 (>32); POTASSIUM SERUM 4.6 MMOL/L (3.5-5.1); TOTAL PROTEIN 6.5 G/DL (5.7-8.2)
[2023-08-05 09:24] LABS: THYROID STIMULATING HORMONE 0.603 uIU/ML (0.55-4.78)
== END ==
LOC: SKLAB7 08:13
PROVIDERS: ATTEND Internal Medicine
DX: N18.9 Chronic kidney disease, unspecified (principal); E03.9 Hypothyroidism, unspecified; Z79.899 Other long term (current) drug therapy

== ENCOUNTER → 2023-08-16 | Outpatient (REF) | payer MEDICARE ==
[2023-08-16 08:30] LABS: BASO % 0.2 % (0.0-1.0); EOS # 0.3 10^3/uL (0.0-0.5); EOS % 6.1 % (0.0-3.0); HEMATOCRIT 32.7 % (36.0-47.0); HEMATOCRIT 32.9 % (36.0-47.0); HEMOGLOBIN 10.4 g/dl (12.0-15.5); LYMPH # 0.7 10^3/uL (1.5-5.0); MEAN CORPUSCULAR HEMOGLOBIN 36.4 pg (27.0-33.0); MEAN CORPUSCULAR HGB CONC 31.6 g/dl (32.0-36.5); MEAN CORPUSCULAR HGB CONC 31.8 g/dl (32.0-36.5); MEAN CORPUSCULAR VOLUME 113.8 fl (80.0-96.0); MONO # 0.5 10^3/uL (0.0-0.8); MONO % 10.1 % (2.0-8.0); NEUTROPHILS # 3.3 10^3/uL (1.5-8.5); NEUTROPHILS % 69.4 % (36.0-66.0); PLATELET COUNT, AUTOMATED 183 10^3/uL (150-450); PLATELET COUNT, AUTOMATED 188 10^3/uL (150-450); RED BLOOD COUNT 2.86 10^6/uL (4.00-5.40); RED BLOOD COUNT 2.89 10^6/uL (4.00-5.40); WHITE BLOOD COUNT 4.7 10^3/uL (4.0-10.0); WHITE BLOOD COUNT 4.8 10^3/uL (4.0-10.0)
[2023-08-16 08:33] LABS: MEAN CORPUSCULAR VOLUME 114.3 fl (80.0-96.0)
[2023-08-16 08:52] LABS: URIC ACID 6.2 MG/DL (3.1-7.8)
[2023-08-16 08:56] LABS: ALBUMIN 3.3 G/DL (3.2-5.2); CALCIUM LEVEL 8.9 MG/DL (8.3-10.6); CALCIUM LEVEL 9.2 MG/DL (8.3-10.6); CREATININE FOR GFR 1.97 MG/DL (0.55-1.30); GLOMERULAR FILTRATION RATE 25.8 (>32); MAGNESIUM LEVEL 2.2 MG/DL (1.8-2.4); PHOSPHORUS LEVEL 4.7 MG/DL (2.4-5.1); PHOSPHORUS LEVEL 4.8 MG/DL (2.4-5.1); POTASSIUM SERUM 4.4 MMOL/L (3.5-5.1); POTASSIUM SERUM 4.5 MMOL/L (3.5-5.1); PTH INTACT 158.3 PG/ML (18.5-88.0)
== END ==
LOC: SKLAB7 06:32
PROVIDERS: ATTEND Internal Medicine
DX: N18.9 Chronic kidney disease, unspecified (principal)

== ENCOUNTER → 2023-08-28 | Outpatient (CLI) | payer MEDICARE | LOC: M RAD 12:10 | PROVIDERS: ATTEND Nurse Practitioner Adult Health | DX: M79.605 Pain in left leg (principal) ==

== ENCOUNTER → 2023-08-29 | Outpatient (CLI) | payer MEDICARE | LOC: M RAD 10:47 | PROVIDERS: ATTEND Internal Medicine | DX: M17.12 Unilateral primary osteoarthritis, left knee (principal); M21.162 Varus deformity, not elsewhere classified, left knee ==

== ENCOUNTER → 2023-08-29 | Outpatient (REF) | payer MEDICARE | LOC: SKLAB7 06:35 | PROVIDERS: ATTEND Internal Medicine | DX: Z53.8 Procedure and treatment not carried out for other reasons (principal) ==

== ENCOUNTER → 2023-09-03 | Outpatient (REF) | payer MEDICARE ==
[2023-09-03 08:16] LABS: HEMATOCRIT 33.8 % (36.0-47.0); HEMOGLOBIN 10.9 g/dl (12.0-15.5); MEAN CORPUSCULAR HEMOGLOBIN 36.7 pg (27.0-33.0); MEAN CORPUSCULAR HGB CONC 32.2 g/dl (32.0-36.5); MEAN CORPUSCULAR VOLUME 113.8 fl (80.0-96.0); PLATELET COUNT, AUTOMATED 203 10^3/uL (150-450); RED BLOOD COUNT 2.97 10^6/uL (4.00-5.40); WHITE BLOOD COUNT 5.8 10^3/uL (4.0-10.0)
== END ==
LOC: SKLAB7 07:30
PROVIDERS: ATTEND Internal Medicine
DX: N18.9 Chronic kidney disease, unspecified (principal)

== ENCOUNTER → 2023-10-01 | Outpatient (REF) | payer MEDICARE ==
[2023-10-01 14:00] LABS: HEMATOCRIT 35.7 % (36.0-47.0); HEMOGLOBIN 11.3 g/dl (12.0-15.5); MEAN CORPUSCULAR HEMOGLOBIN 35.6 pg (27.0-33.0); MEAN CORPUSCULAR HGB CONC 31.7 g/dl (32.0-36.5); MEAN CORPUSCULAR VOLUME 112.6 fl (80.0-96.0); PLATELET COUNT, AUTOMATED 254 10^3/uL (150-450); RED BLOOD COUNT 3.17 10^6/uL (4.00-5.40); WHITE BLOOD COUNT 5.7 10^3/uL (4.0-10.0)
== END ==
LOC: SKLAB7 11:51
PROVIDERS: ATTEND Internal Medicine
DX: N18.9 Chronic kidney disease, unspecified (principal)

== ENCOUNTER → 2023-10-09 | Outpatient (REF) | payer MEDICARE ==
[2023-10-09 13:41] LABS: BASO % 0.2 % (0.0-1.0); EOS # 0.1 10^3/uL (0.0-0.5); EOS % 0.4 % (0.0-3.0); HEMATOCRIT 35.5 % (36.0-47.0); HEMOGLOBIN 11.2 g/dl (12.0-15.5); LYMPH # 0.7 10^3/uL (1.5-5.0); LYMPH % 5.2 % (24.0-44.0); MEAN CORPUSCULAR HEMOGLOBIN 35.7 pg (27.0-33.0); MEAN CORPUSCULAR HGB CONC 31.5 g/dl (32.0-36.5); MEAN CORPUSCULAR VOLUME 113.1 fl (80.0-96.0); MONO # 0.9 10^3/uL (0.0-0.8); NEUTROPHILS # 12.5 10^3/uL (1.5-8.5); NEUTROPHILS % 87.8 % (36.0-66.0); PLATELET COUNT, AUTOMATED 243 10^3/uL (150-450); RED BLOOD COUNT 3.14 10^6/uL (4.00-5.40); WHITE BLOOD COUNT 14.2 10^3/uL (4.0-10.0)
[2023-10-09 14:02] LABS: CALCIUM LEVEL 8.7 MG/DL (8.3-10.6); CREATININE FOR GFR 2.9 MG/DL (0.55-1.30); GLOMERULAR FILTRATION RATE 16.5 (>32); POTASSIUM SERUM 5.2 MMOL/L (3.5-5.1)
== END ==
LOC: SKLAB7 09:42
PROVIDERS: ATTEND Internal Medicine
DX: R50.9 Fever, unspecified (principal); I50.9 Heart failure, unspecified

== ENCOUNTER → 2023-10-09 | Outpatient (REF) | payer MEDICARE | LOC: SKLAB7 14:21 | PROVIDERS: ATTEND Internal Medicine | DX: R50.9 Fever, unspecified (principal) ==

== ENCOUNTER → 2023-10-10 | Outpatient (REF) | payer MEDICARE ==
[2023-10-10 07:50] LABS: HEMATOCRIT 31.9 % (36.0-47.0); HEMOGLOBIN 10.2 g/dl (12.0-15.5); MEAN CORPUSCULAR VOLUME 112.7 fl (80.0-96.0); PLATELET COUNT, AUTOMATED 173 10^3/uL (150-450); RED BLOOD COUNT 2.83 10^6/uL (4.00-5.40); WHITE BLOOD COUNT 7.2 10^3/uL (4.0-10.0)
[2023-10-10 08:14] LABS: CALCIUM LEVEL 8.9 MG/DL (8.3-10.6); CREATININE FOR GFR 3.17 MG/DL (0.55-1.30); GLOMERULAR FILTRATION RATE 14.9 (>32); POTASSIUM SERUM 4.8 MMOL/L (3.5-5.1)
== END ==
LOC: SKLAB7 07:11
PROVIDERS: ATTEND Internal Medicine
DX: R05.9 Cough, unspecified (principal); Z79.899 Other long term (current) drug therapy

== ENCOUNTER → 2023-10-11 | Outpatient (REF) | payer MEDICARE ==
[2023-10-11 11:50] LABS: HEMATOCRIT 32.1 % (36.0-47.0); MEAN CORPUSCULAR HEMOGLOBIN 35.6 pg (27.0-33.0); MEAN CORPUSCULAR HGB CONC 31.2 g/dl (32.0-36.5); PLATELET COUNT, AUTOMATED 173 10^3/uL (150-450); RED BLOOD COUNT 2.81 10^6/uL (4.00-5.40); WHITE BLOOD COUNT 5.1 10^3/uL (4.0-10.0)
[2023-10-11 11:57] LABS: MEAN CORPUSCULAR VOLUME 114.2 fl (80.0-96.0)
[2023-10-11 12:21] LABS: CALCIUM LEVEL 7.9 MG/DL (8.3-10.6); CREATININE FOR GFR 2.78 MG/DL (0.55-1.30); GLOMERULAR FILTRATION RATE 17.3 (>32); POTASSIUM SERUM 4.6 MMOL/L (3.5-5.1)
== END ==
LOC: SKLAB7 10:27
PROVIDERS: ATTEND Internal Medicine
DX: N17.9 Acute kidney failure, unspecified (principal)

== ENCOUNTER → 2023-10-14 | Outpatient (CLI) | payer MEDICARE ==
[~2023-10-14] MED LIST changes: -MIRA1POW3 PO; +MIRA33506 PO; -OXYB5TAB11 PO; +OXYB5TAB14 PO
[2023-10-14 11:28] LABS: CALCIUM LEVEL 9.2 MG/DL (8.3-10.6); CREATININE FOR GFR 1.83 MG/DL (0.55-1.30); GLOMERULAR FILTRATION RATE 28.1 (>32); POTASSIUM SERUM 4.5 MMOL/L (3.5-5.1)
== END ==
LOC: M RAD 10:13
PROVIDERS: ATTEND Internal Medicine
DX: N17.9 Acute kidney failure, unspecified (principal); I51.7 Cardiomegaly; M51.34 Other intervertebral disc degeneration, thoracic region; M51.36 Other intervertebral disc degeneration, lumbar region

== ENCOUNTER → 2023-10-14 | Outpatient (REF) | payer MEDICARE ==
[~2023-10-14] MED LIST changes: +MIRA1POW3 PO; -MIRA33506 PO; +OXYB5TAB11 PO; -OXYB5TAB14 PO
== END ==
LOC: SKLAB7 08:49
PROVIDERS: ATTEND Internal Medicine
DX: I50.9 Heart failure, unspecified (principal); Z53.8 Procedure and treatment not carried out for other reasons

== ENCOUNTER → 2023-11-05 | Outpatient (REF) | payer MEDICARE ==
[~2023-11-05] MED LIST changes: -MIRA1POW3 PO; +MIRA33506 PO; -OXYB5TAB11 PO; +OXYB5TAB14 PO
[2023-11-05 09:50] LABS: HEMATOCRIT 37.9 % (36.0-47.0); MEAN CORPUSCULAR HEMOGLOBIN 36.4 pg (27.0-33.0); MEAN CORPUSCULAR HGB CONC 31.7 g/dl (32.0-36.5); PLATELET COUNT, AUTOMATED 225 10^3/uL (150-450); WHITE BLOOD COUNT 8.6 10^3/uL (4.0-10.0)
[2023-11-05 09:52] LABS: MEAN CORPUSCULAR VOLUME 114.8 fl (80.0-96.0)
== END ==
LOC: SKLAB7 07:56
PROVIDERS: ATTEND Internal Medicine
DX: N18.9 Chronic kidney disease, unspecified (principal)

== ENCOUNTER → 2023-11-19 | Outpatient (REF) | payer MEDICARE ==
[2023-11-19 09:26] LABS: HEMATOCRIT 35.8 % (36.0-47.0); HEMOGLOBIN 11.1 g/dl (12.0-15.5); MEAN CORPUSCULAR HEMOGLOBIN 35.7 pg (27.0-33.0); PLATELET COUNT, AUTOMATED 232 10^3/uL (150-450); RED BLOOD COUNT 3.11 10^6/uL (4.00-5.40); WHITE BLOOD COUNT 5.5 10^3/uL (4.0-10.0)
[2023-11-19 09:30] LABS: MEAN CORPUSCULAR VOLUME 115.1 fl (80.0-96.0)
[2023-11-19 09:52] LABS: URIC ACID 6.9 MG/DL (3.1-7.8)
[2023-11-19 09:55] LABS: ALBUMIN 3.3 G/DL (3.2-5.2); CALCIUM LEVEL 8.8 MG/DL (8.3-10.6); CREATININE FOR GFR 1.93 MG/DL (0.55-1.30); GLOMERULAR FILTRATION RATE 26.4 (>32); MAGNESIUM LEVEL 2.2 MG/DL (1.8-2.4); PHOSPHORUS LEVEL 4.8 MG/DL (2.4-5.1); POTASSIUM SERUM 4.6 MMOL/L (3.5-5.1); PTH INTACT 245.4 PG/ML (18.5-88.0)
[2023-11-19 15:49] LABS: APPEARANCE, URINE CLEAR (CLEAR); BACTERIA, URINE AUTO NEGATIVE (NEGATIVE); BILIRUBIN, URINE AUTO NEGATIVE (NEGATIVE); BLOOD, URINE BLOOD NEGATIVE (NEGATIVE); COLOR, URINE YELLOW (YELLOW); GLUCOSE, URINE (UA) AUTO NEGATIVE (NEGATIVE); KETONE, URINE AUTO NEGATIVE (NEGATIVE); LEUKOCYTE ESTERASE, URINE AUTO 1+ (NEGATIVE); MUCUS, URINE SMALL (NEGATIVE); NITRITE, URINE AUTO NEGATIVE (NEGATIVE); PROTEIN, URINE AUTO NEGATIVE (NEGATIVE); RBC, URINE AUTO 0 /HPF (0-3); SPECIFIC GRAVITY URINE AUTO 1.012 (1.002-1.035); SQUAMOUS EPITHELIAL CELL UR AU 0 /HPF (0-6); UROBILINOGEN, URINE AUTO 0.2 mg/dL (0.0-2.0); WBC, URINE AUTO 28 /HPF (0-3)
== END ==
LOC: SKLAB7 07:00
PROVIDERS: ATTEND Internal Medicine
DX: N18.9 Chronic kidney disease, unspecified (principal)

== ENCOUNTER → 2023-12-05 | Outpatient (CLI) | payer MEDICARE | LOC: M RAD 10:55 | PROVIDERS: ATTEND Internal Medicine | DX: M19.011 Primary osteoarthritis, right shoulder (principal); R11.2 Nausea with vomiting, unspecified ==

== ENCOUNTER → 2023-12-05 | Outpatient (REF) | payer MEDICARE ==
[2023-12-05 10:19] LABS: HEMATOCRIT 34.5 % (36.0-47.0); HEMOGLOBIN 10.8 g/dl (12.0-15.5); MEAN CORPUSCULAR HEMOGLOBIN 35.6 pg (27.0-33.0); MEAN CORPUSCULAR HGB CONC 31.3 g/dl (32.0-36.5); MEAN CORPUSCULAR VOLUME 113.9 fl (80.0-96.0); PLATELET COUNT, AUTOMATED 159 10^3/uL (150-450); RED BLOOD COUNT 3.03 10^6/uL (4.00-5.40); WHITE BLOOD COUNT 2.4 10^3/uL (4.0-10.0)
[2023-12-05 10:44] LABS: ALBUMIN 2.8 G/DL (3.2-5.2); BILIRUBIN,TOTAL 0.6 MG/DL (0.3-1.2); CALCIUM LEVEL 8.6 MG/DL (8.3-10.6); CREATININE FOR GFR 1.74 MG/DL (0.55-1.30); GLOMERULAR FILTRATION RATE 29.7 (>32); POTASSIUM SERUM 4.4 MMOL/L (3.5-5.1); TOTAL PROTEIN 5.4 G/DL (5.7-8.2)
== END ==
LOC: SKLAB7 09:25
PROVIDERS: ATTEND Internal Medicine
DX: R11.2 Nausea with vomiting, unspecified (principal)

== ENCOUNTER → 2023-12-13 | Outpatient (REF) | payer MEDICARE ==
[2023-12-13 12:18] LABS: HEMATOCRIT 35.2 % (36.0-47.0); HEMOGLOBIN 11.2 g/dl (12.0-15.5); MEAN CORPUSCULAR HEMOGLOBIN 36.4 pg (27.0-33.0); MEAN CORPUSCULAR HGB CONC 31.8 g/dl (32.0-36.5); PLATELET COUNT, AUTOMATED 225 10^3/uL (150-450); RED BLOOD COUNT 3.08 10^6/uL (4.00-5.40)
[2023-12-13 12:33] LABS: MEAN CORPUSCULAR VOLUME 114.3 fl (80.0-96.0)
== END ==
LOC: SKLAB7 12-12 09:22
PROVIDERS: ATTEND Internal Medicine
DX: D64.9 Anemia, unspecified (principal)

== ENCOUNTER → 2023-12-13 | Outpatient (REF) | payer MEDICARE | LOC: SKLAB7 11:42 | PROVIDERS: ATTEND Nurse Practitioner | DX: R06.2 Wheezing (principal) ==

== ENCOUNTER 2023-12-26 10:48 | Inpatient (IN) | payer MEDICARE ==
[~2023-12-26] VITALS: Ht 170.2 cm; Wt 96.1 kg
[2023-12-26 11:35] LABS: BASO % 0.1 % (0.0-1.0); EOS # 0.1 10^3/uL (0.0-0.5); EOS % 1.1 % (0.0-3.0); HEMATOCRIT 33.3 % (36.0-47.0); HEMOGLOBIN 10.8 g/dl (12.0-15.5); LYMPH # 0.7 10^3/uL (1.5-5.0); LYMPH % 6.2 % (24.0-44.0); MEAN CORPUSCULAR HEMOGLOBIN 36.9 pg (27.0-33.0); MEAN CORPUSCULAR HGB CONC 32.4 g/dl (32.0-36.5); MEAN CORPUSCULAR VOLUME 113.7 fl (80.0-96.0); MONO # 0.6 10^3/uL (0.0-0.8); MONO % 6.1 % (2.0-8.0); NEUTROPHILS % 86.2 % (36.0-66.0); PLATELET COUNT, AUTOMATED 214 10^3/uL (150-450); RED BLOOD COUNT 2.93 10^6/uL (4.00-5.40); WHITE BLOOD COUNT 10.5 10^3/uL (4.0-10.0)
[2023-12-26 12:03] LABS: CK-MB VALUE MASS 11.3 NG/ML (<3.6)
[2023-12-26 12:06] LABS: BILIRUBIN,DIRECT 0.4 MG/DL (<0.4); BILIRUBIN,TOTAL 1.1 MG/DL (0.3-1.2); CALCIUM LEVEL 8.3 MG/DL (8.3-10.6); CREATININE FOR GFR 2.47 MG/DL (0.55-1.30); GLOMERULAR FILTRATION RATE 19.9 (>32); POTASSIUM SERUM 4.8 MMOL/L (3.5-5.1); TOTAL PROTEIN 5.8 G/DL (5.7-8.2)
[2023-12-26 12:08] LABS: MB/CK RELATIVE INDEX 4.09 (< OR =4)
[2023-12-26] MEDS: IPRATROPIUM 0.5MG/ALBUTEROL 2.5MG INH SOL UD 3ML (DUONEB) NEB PRN (12:59)
[2023-12-26] MEDS: FUROSEMIDE 20MG/2ML VIAL IV ONE (13:02)
[2023-12-26] MEDS: ASPIRIN 81MG CHEW TABLET PO ONE (13:02)
[2023-12-26 13:04] LABS: ABG BASE EXCESS 2.5 (-2.0-2.0); ABG HCO3 26.7 MMOL/L (22.0-26.0); ABG O2 SATURATION 92.5 % (95.0-99.0); ABG PARTIAL PRESSURE CO2 39.9 mmHg (35.0-45.0); ABG PARTIAL PRESSURE O2 63.2 mmHg (75.0-100.0); ABG STANDARD HCO3 26.5 MMOL/L. (22.0-26.0); ABG TOTAL CO2 27.9 MMOL/L (23.0-31.0); ABG pH (ARTERIAL) 7.443 UNITS (7.350-7.450)
[2023-12-26] MEDS: HEPARIN DRIP 25,000 UNITS in IV 1 EA IV SCH (13:06)
[2023-12-26] MEDS: HEPARIN SOD (PORCINE) 5000UNITS/ML 1ML VIAL/SYRINGE IV ONE (13:06)
[2023-12-26 13:09] LABS: CK-MB VALUE MASS 13.2 NG/ML (<3.6)
[2023-12-26 13:10] LABS: MB/CK RELATIVE INDEX 4.48 (< OR =4)
[2023-12-26] MEDS: FUROSEMIDE 100MG/10ML VIAL IV ONE (13:38)
[2023-12-26] MEDS ORDERED: PRES10CA2 PO (15:18)
[2023-12-26] MEDS ORDERED: POLY17PO18 PO (15:18)
[2023-12-26] MEDS ORDERED: PROC1INJ5 SC (15:18)
[2023-12-26] MEDS ORDERED: ENTR1TAB PO (15:18)
[2023-12-26] MEDS ORDERED: FLEEENE12 PR (15:18)
[2023-12-26] MEDS ORDERED: ARTIDRO4 OU ×2 (15:18)
[2023-12-26] MEDS ORDERED: ACET650T15 PO (15:18)
[2023-12-26] MEDS ORDERED: GABA-1171 PO ×2 (15:18→15:23)
[2023-12-26] MEDS ORDERED: ALBU2.5V10 INH (15:18)
[2023-12-26] MEDS ORDERED: [UNRECOGNIZED DRUG - CODE] TOP (15:18)
[2023-12-26] MEDS ORDERED: BUSP1TAB PO (15:18)
[2023-12-26] MEDS ORDERED: ACETAMINOPHEN TAB 650MG DOSE (2X325MG) PO PRN (16:15)
[2023-12-26] MEDS ORDERED: MOM 30ML SUSPENSION UDC PO PRN (16:15)
[2023-12-26] MEDS ORDERED: HEPARIN SOD (PORCINE) 5000UNITS/ML 1ML VIAL/SYRINGE IV PRN (16:35)
[2023-12-26] MEDS ORDERED: NITROGLYCERIN 0.3MG SUBL TAB SL PRN (16:45)
[2023-12-26] MEDS: CLOPIDOGREL 300 MG TAB (PLAVIX) PO STA (17:26)
[2023-12-26] MEDS: ATORVASTATIN 20 MG TAB PO ONE (17:26)
[2023-12-26] MEDS: PANTOPRAZOLE 40MG VIAL IV SCH (17:26)
[2023-12-26] MEDS ORDERED: HOME MED LIST COMPLETE! XX SCH (18:55)
[2023-12-26 18:59] LABS: HEMATOCRIT 34.4 % (36.0-47.0); HEMOGLOBIN 11.3 g/dl (12.0-15.5); MEAN CORPUSCULAR HEMOGLOBIN 36.5 pg (27.0-33.0); MEAN CORPUSCULAR HGB CONC 32.8 g/dl (32.0-36.5); PLATELET COUNT, AUTOMATED 197 10^3/uL (150-450); WHITE BLOOD COUNT 9.1 10^3/uL (4.0-10.0)
[2023-12-26] MEDS ORDERED: ALBUTEROL SULFATE 2.5MG/0.5ML INH NEB SOLN INH PRN (19:05)
[2023-12-26] MEDS ORDERED: BISACODYL 10MG SUPP PR PRN (19:05)
[2023-12-26 19:18] LABS: CK-MB VALUE MASS 8.3 NG/ML (<3.6)
[2023-12-26 19:21] LABS: MB/CK RELATIVE INDEX 3.12 (< OR =4)
[2023-12-26 20:53] VITALS: BP 134/67; TEMP 98; O2SAT 96
[2023-12-26] MEDS: SYMBICORT 160/4.5MCG INHALER 6GM INH SCH (21:01)
[2023-12-26] MEDS: ENTRESTO 24-26MG TABLET (SACUBITRIL/VALSARTAN) PO SCH (21:40)
[2023-12-26] MEDS: busPIRone 5 MG TAB PO SCH (21:40)
[2023-12-26] MEDS: GABAPENTIN 100 MG CAP PO SCH (21:40)
[2023-12-26] MEDS: ACETAMINOPHEN TAB 650MG DOSE (2X325MG) PO PRN (21:41)
[2023-12-27] VITALS (8 sets, daily range): BP systolic 114–132; BP diastolic 51–60; TEMP 97.2–98.8; O2SAT 95–97
[2023-12-27] MEDS: LEVOTHYROXINE 100MCG TABLET (0.1MG) PO SCH (05:46)
[2023-12-27 07:42] LABS: HEMATOCRIT 31.9 % (36.0-47.0); HEMOGLOBIN 10.5 g/dl (12.0-15.5); MEAN CORPUSCULAR HEMOGLOBIN 35.8 pg (27.0-33.0); MEAN CORPUSCULAR HGB CONC 32.9 g/dl (32.0-36.5); MEAN CORPUSCULAR VOLUME 108.9 fl (80.0-96.0); PLATELET COUNT, AUTOMATED 187 10^3/uL (150-450); RED BLOOD COUNT 2.93 10^6/uL (4.00-5.40); WHITE BLOOD COUNT 6.5 10^3/uL (4.0-10.0)
[2023-12-27 07:57] LABS: CALCIUM LEVEL 8.6 MG/DL (8.3-10.6); CREATININE FOR GFR 1.96 MG/DL (0.55-1.30); GLOMERULAR FILTRATION RATE 25.9 (>32); MAGNESIUM LEVEL 2.1 MG/DL (1.8-2.4); POTASSIUM SERUM 4.4 MMOL/L (3.5-5.1)
[2023-12-27] MEDS: FUROSEMIDE 40MG/4ML VIAL IV SCH (08:12)
[2023-12-27] MEDS: GABAPENTIN 100 MG CAP PO SCH (08:13)
[2023-12-27] MEDS: ATORVASTATIN 20 MG TAB PO SCH (08:13)
[2023-12-27] MEDS: ASPIRIN 81MG ENTERIC TABLET PO SCH (08:13)
[2023-12-27] MEDS: CitaloPRAM (CeleXA) 10 MG TABLET PO SCH (08:13)
[2023-12-27] MEDS: FERROUS SULFATE 325MG TAB PO SCH (08:14)
[2023-12-27] MEDS: CALCITRIOL 0.25 MCG CAP (S0169) PO SCH (08:14)
[2023-12-27] MEDS: CLOPIDOGREL 75 MG TAB PO SCH (08:14)
[2023-12-27] MEDS: allopurinoL 100 MG TAB PO SCH (08:14)
[2023-12-27] MEDS ORDERED: BENZONATATE 100MG CAPSULE PO PRN (09:45)
[2023-12-27] MEDS ORDERED: ANALGESIC BALM CRM 3OZ TOP PRN (09:45)
[2023-12-27] MEDS: dexAMETHasone 20MG/5ML VIAL IV SCH (12:06)
[2023-12-27] MEDS: HEPARIN DRIP 25,000 UNITS in IV 1 EA IV SCH (14:25)
[2023-12-27] MEDS: METOPROLOL SUCC *XL* 25MG TAB (TopROL *XL*) PO SCH (17:05)
[2023-12-27] MEDS ORDERED: PANTOPRAZOLE 40MG VIAL IV SCH (18:00)
[2023-12-28] VITALS: BP 159/67; TEMP 97.1; O2SAT 95
[2023-12-28 04:00] VITALS: BP 158/84; TEMP 97.7; O2SAT 95
[2023-12-28 04:55] LABS: HEMATOCRIT 34.9 % (36.0-47.0); HEMOGLOBIN 11.1 g/dl (12.0-15.5); MEAN CORPUSCULAR HEMOGLOBIN 35.5 pg (27.0-33.0); MEAN CORPUSCULAR HGB CONC 31.8 g/dl (32.0-36.5); MEAN CORPUSCULAR VOLUME 111.5 fl (80.0-96.0); PLATELET COUNT, AUTOMATED 226 10^3/uL (150-450); RED BLOOD COUNT 3.13 10^6/uL (4.00-5.40); WHITE BLOOD COUNT 6.5 10^3/uL (4.0-10.0)
[2023-12-28 05:25] LABS: CALCIUM LEVEL 8.7 MG/DL (8.3-10.6); CREATININE FOR GFR 1.62 MG/DL (0.55-1.30); GLOMERULAR FILTRATION RATE 32.3 (>32); POTASSIUM SERUM 4.4 MMOL/L (3.5-5.1)
[2023-12-28 08:00] VITALS: BP 158/68; TEMP 97.3; O2SAT 93
[2023-12-28] MEDS: ALBUTEROL SULFATE 2.5MG/0.5ML INH NEB SOLN NEB SCH (08:00)
[2023-12-28] MEDS: IPRATROPIUM 0.5MG/ALBUTEROL 2.5MG INH SOL UD 3ML (DUONEB) NEB SCH (08:07)
[2023-12-28] MEDS: PANTOPRAZOLE 40MG TAB (PROTONIX) PO SCH (08:34)
[2023-12-28] MEDS: HEPARIN SOD (PORCINE) 5000UNITS/ML 1ML VIAL/SYRINGE SQ ONE (10:19)
[2023-12-28] MEDS: FUROSEMIDE 20 MG TAB PO SCH (10:20)
[2023-12-28 12:00] VITALS: BP 124/58; TEMP 97.8; O2SAT 94
[2023-12-28 16:00] VITALS: BP 115/51; TEMP 97.6; O2SAT 96
[2023-12-28] MEDS: hydrOXYzine 50 MG TAB PO ONE (16:11)
[2023-12-28 18:22] VITALS: BP 124/50; TEMP 97.2; O2SAT 96
[2023-12-29 04:03] VITALS: BP 132/62; TEMP 97.8; O2SAT 99
[2023-12-29 05:13] LABS: HEMATOCRIT 33.7 % (36.0-47.0); HEMOGLOBIN 10.7 g/dl (12.0-15.5); MEAN CORPUSCULAR HEMOGLOBIN 35.1 pg (27.0-33.0); MEAN CORPUSCULAR HGB CONC 31.8 g/dl (32.0-36.5); MEAN CORPUSCULAR VOLUME 110.5 fl (80.0-96.0); PLATELET COUNT, AUTOMATED 226 10^3/uL (150-450); RED BLOOD COUNT 3.05 10^6/uL (4.00-5.40); WHITE BLOOD COUNT 6.4 10^3/uL (4.0-10.0)
[2023-12-29 05:38] LABS: CALCIUM LEVEL 9.1 MG/DL (8.3-10.6); CREATININE FOR GFR 1.57 MG/DL (0.55-1.30); GLOMERULAR FILTRATION RATE 33.5 (>32); POTASSIUM SERUM 4.2 MMOL/L (3.5-5.1)
[2023-12-29 08:00] VITALS: BP 132/65; TEMP 97.3; O2SAT 97
[2023-12-29 11:00] VITALS: BP 136/60
[2023-12-29] MEDS: ENTRESTO 24-26MG TABLET (SACUBITRIL/VALSARTAN) PO SCH (11:11)
[2023-12-29] MEDS: methylPREDNISolone 40MG 1ML VIAL IV SCH (11:12)
[2023-12-29] MEDS: HEPARIN SOD (PORCINE) 5000UNITS/ML 1ML VIAL/SYRINGE SQ SCH (13:11)
[2023-12-29 16:15] VITALS: BP 133/102; TEMP 97.9; O2SAT 97
[2023-12-29 16:45] VITALS: BP 132/66
[2023-12-29 20:06] VITALS: BP 114/83; TEMP 97.2; O2SAT 96
[2023-12-30 04:56] VITALS: BP 122/82; TEMP 96.8; O2SAT 99
[2023-12-30 07:01] LABS: HEMATOCRIT 34.3 % (36.0-47.0); MEAN CORPUSCULAR HEMOGLOBIN 35.5 pg (27.0-33.0); MEAN CORPUSCULAR HGB CONC 32.1 g/dl (32.0-36.5); MEAN CORPUSCULAR VOLUME 110.6 fl (80.0-96.0); PLATELET COUNT, AUTOMATED 237 10^3/uL (150-450); WHITE BLOOD COUNT 6.6 10^3/uL (4.0-10.0)
[2023-12-30 07:32] LABS: CALCIUM LEVEL 8.6 MG/DL (8.3-10.6); CREATININE FOR GFR 1.51 MG/DL (0.55-1.30); POTASSIUM SERUM 3.9 MMOL/L (3.5-5.1)
[2023-12-30] MEDS ORDERED: PRED10TA2 PO (11:07)
[2023-12-30] MEDS ORDERED: METO5TA PO (11:07)
[2023-12-30] MEDS ORDERED: METO25TA PO (11:07)
[2023-12-30 11:08] VITALS: BP 162/58
[2023-12-30] MEDS ORDERED: CLOP75TA2 PO (11:23)
[2023-12-30] MEDS ORDERED: METO1TAB32 PO (11:23)
== END 2023-12-30 13:13 | DRG 280 ==
LOC: M ED 10:48 → EDBD 10:48 → M ED INP 15:56 → ENRESERV 19:42 → M ICU 20:51 → M PCU 12-28 18:18 → M MSPAV 12-29 16:09
PROVIDERS: ADMIT Internal Medicine; ATTEND Student in an Organized Health Care Education/Training Program
PROC: B246ZZZ Ultrasonography of Right and Left Heart (ICD-10-PCS; principal; 2023-12-28)
DX: I21.4 Non-ST elevation (NSTEMI) myocardial infarction (principal); I50.23 Acute on chronic systolic (congestive) heart failure; U07.1 COVID-19; J96.21 Acute and chronic respiratory failure with hypoxia; E87.20 Acidosis, unspecified; N17.9 Acute kidney failure, unspecified; J44.1 Chronic obstructive pulmonary disease with (acute) exacerbation; N18.30 Chronic kidney disease, stage 3 unspecified; D63.1 Anemia in chronic kidney disease; N32.81 Overactive bladder; F41.9 Anxiety disorder, unspecified; E03.9 Hypothyroidism, unspecified; F32.A Depression, unspecified; E78.5 Hyperlipidemia, unspecified; Z66 Do not resuscitate; I27.20 Pulmonary hypertension, unspecified; D50.9 Iron deficiency anemia, unspecified; M10.9 Gout, unspecified; Z86.718 Personal history of other venous thrombosis and embolism; Z86.73 Personal history of transient ischemic attack (TIA), and cerebral infarction without residual deficits; Z99.81 Dependence on supplemental oxygen; Z87.891 Personal history of nicotine dependence; Z79.82 Long term (current) use of aspirin; Z79.890 Hormone replacement therapy; Z79.899 Other long term (current) drug therapy; Z91.041 Radiographic dye allergy status

== ENCOUNTER → 2024-01-06 | Outpatient (REF) | payer MEDICARE ==
[~2024-01-06] MED LIST changes: +ACET650T15 PO; +ALBU2.5V10 INH; +ARTIDRO4 OU; +BUSP1TAB PO; +ENTR1TAB PO; +FLEEENE12 PR; +GABA-1171 PO; +METO25TA PO; +METO5TA PO; +POLY17PO18 PO; +PRES10CA2 PO; +PROC1INJ5 SC; +[UNRECOGNIZED DRUG - CODE] TOP
[2024-01-06 12:27] LABS: CALCIUM LEVEL 8.2 MG/DL (8.3-10.6); CREATININE FOR GFR 1.62 MG/DL (0.55-1.30); GLOMERULAR FILTRATION RATE 32.3 (>32); POTASSIUM SERUM 4.7 MMOL/L (3.5-5.1)
== END ==
LOC: SKLAB7 10:19
PROVIDERS: ATTEND Internal Medicine
DX: I10 Essential (primary) hypertension (principal)

== ENCOUNTER → 2024-01-21 | Outpatient (REF) | payer MEDICARE ==
[2024-01-21 10:25] LABS: ALBUMIN 3.1 G/DL (3.2-5.2); CALCIUM LEVEL 8.8 MG/DL (8.3-10.6); CREATININE FOR GFR 2.26 MG/DL (0.55-1.30); PHOSPHORUS LEVEL 4.8 MG/DL (2.4-5.1); POTASSIUM SERUM 4.7 MMOL/L (3.5-5.1)
[2024-01-21 10:31] LABS: PTH INTACT 252.9 PG/ML (18.5-88.0)
== END ==
LOC: SKLAB7 07:00
PROVIDERS: ATTEND Internal Medicine
DX: N18.9 Chronic kidney disease, unspecified (principal)

== ENCOUNTER → 2024-02-05 | Outpatient (REF) | payer MEDICARE ==
[2024-02-05 14:58] LABS: CALCIUM LEVEL 8.8 MG/DL (8.3-10.6); CREATININE FOR GFR 2.06 MG/DL (0.55-1.30); GLOMERULAR FILTRATION RATE 24.5 (>32); POTASSIUM SERUM 5.2 MMOL/L (3.5-5.1)
== END ==
LOC: SKLAB7 10:55
PROVIDERS: ATTEND Internal Medicine
DX: N18.9 Chronic kidney disease, unspecified (principal)

== ENCOUNTER → 2024-02-06 | Outpatient (REF) | payer MEDICARE ==
[2024-02-06 09:05] LABS: HEMOGLOBIN A1c 6.3 % (4.0-6.0)
== END ==
LOC: SKLAB7 06:56
PROVIDERS: ATTEND Internal Medicine
DX: E03.9 Hypothyroidism, unspecified (principal); Z79.899 Other long term (current) drug therapy

== ENCOUNTER → 2024-02-07 | Outpatient (REF) | payer MEDICARE | LOC: SKLAB7 06:32 | PROVIDERS: ATTEND Internal Medicine | DX: N18.9 Chronic kidney disease, unspecified (principal) ==

== ENCOUNTER → 2024-02-21 | Outpatient (REF) | payer MEDICARE ==
[2024-02-21 08:09] LABS: HEMATOCRIT 32.2 % (36.0-47.0); HEMOGLOBIN 10.3 g/dl (12.0-15.5); MEAN CORPUSCULAR HEMOGLOBIN 35.4 pg (27.0-33.0); MEAN CORPUSCULAR VOLUME 110.7 fl (80.0-96.0); PLATELET COUNT, AUTOMATED 204 10^3/uL (150-450); RED BLOOD COUNT 2.91 10^6/uL (4.00-5.40); WHITE BLOOD COUNT 5.9 10^3/uL (4.0-10.0)
[2024-02-21 08:43] LABS: ALBUMIN 3.1 G/DL (3.2-5.2); CREATININE FOR GFR 2.29 MG/DL (0.55-1.30); GLOMERULAR FILTRATION RATE 21.7 (>32); MAGNESIUM LEVEL 2.2 MG/DL (1.8-2.4); PHOSPHORUS LEVEL 5.9 MG/DL (2.4-5.1); POTASSIUM SERUM 4.8 MMOL/L (3.5-5.1)
== END ==
LOC: SKLAB7 07:19
PROVIDERS: ATTEND Internal Medicine
DX: N18.30 Chronic kidney disease, stage 3 unspecified (principal); Z79.899 Other long term (current) drug therapy

== ENCOUNTER → 2024-03-10 | Outpatient (REF) | payer MEDICARE ==
[2024-03-10 08:56] LABS: ALBUMIN 3.5 G/DL (3.2-5.2); CALCIUM LEVEL 9.5 MG/DL (8.3-10.6); CREATININE FOR GFR 2.18 MG/DL (0.55-1.30); GLOMERULAR FILTRATION RATE 22.9 (>32); PHOSPHORUS LEVEL 5.5 MG/DL (2.4-5.1); POTASSIUM SERUM 4.4 MMOL/L (3.5-5.1)
== END ==
LOC: SKLAB7 07:33
PROVIDERS: ATTEND Internal Medicine
DX: N18.9 Chronic kidney disease, unspecified (principal)

== ENCOUNTER → 2024-03-24 | Outpatient (REF) | payer MEDICARE ==
[2024-03-24 09:53] LABS: BASO % 0.4 % (0.0-1.0); EOS # 0.4 10^3/uL (0.0-0.5); EOS % 7.9 % (0.0-3.0); HEMOGLOBIN 10.2 g/dl (12.0-15.5); LYMPH # 0.6 10^3/uL (1.5-5.0); LYMPH % 10.7 % (24.0-44.0); MEAN CORPUSCULAR HEMOGLOBIN 36.2 pg (27.0-33.0); MEAN CORPUSCULAR HGB CONC 31.9 g/dl (32.0-36.5); MEAN CORPUSCULAR VOLUME 113.5 fl (80.0-96.0); MONO # 0.4 10^3/uL (0.0-0.8); MONO % 8.3 % (2.0-8.0); NEUTROPHILS # 3.8 10^3/uL (1.5-8.5); NEUTROPHILS % 72.5 % (36.0-66.0); PLATELET COUNT, AUTOMATED 217 10^3/uL (150-450); RED BLOOD COUNT 2.82 10^6/uL (4.00-5.40); WHITE BLOOD COUNT 5.2 10^3/uL (4.0-10.0)
[2024-03-24 10:22] LABS: ALBUMIN 3.2 G/DL (3.2-5.2); CALCIUM LEVEL 8.6 MG/DL (8.3-10.6); CREATININE FOR GFR 2.53 MG/DL (0.55-1.30); GLOMERULAR FILTRATION RATE 19.3 (>32); PHOSPHORUS LEVEL 5.1 MG/DL (2.4-5.1); POTASSIUM SERUM 4.3 MMOL/L (3.5-5.1)
[2024-03-24 10:30] LABS: PTH INTACT 347.3 PG/ML (18.5-88.0)
== END ==
LOC: SKLAB7 08:38
PROVIDERS: ATTEND Internal Medicine
DX: N18.9 Chronic kidney disease, unspecified (principal)

== ENCOUNTER → 2024-04-13 | Outpatient (REF) | payer MEDICARE ==
[2024-04-13 19:19] LABS: HEMATOCRIT 32.4 % (36.0-47.0); HEMOGLOBIN 10.3 g/dl (12.0-15.5); MEAN CORPUSCULAR HEMOGLOBIN 36.3 pg (27.0-33.0); MEAN CORPUSCULAR HGB CONC 31.8 g/dl (32.0-36.5); PLATELET COUNT, AUTOMATED 237 10^3/uL (150-450); RED BLOOD COUNT 2.84 10^6/uL (4.00-5.40); WHITE BLOOD COUNT 5.3 10^3/uL (4.0-10.0)
[2024-04-13 19:25] LABS: MEAN CORPUSCULAR VOLUME 114.1 fl (80.0-96.0)
[2024-04-13 19:38] LABS: CALCIUM LEVEL 8.7 MG/DL (8.3-10.6); CREATININE FOR GFR 2.77 MG/DL (0.55-1.30); GLOMERULAR FILTRATION RATE 17.4 (>32); POTASSIUM SERUM 4.5 MMOL/L (3.5-5.1)
== END ==
LOC: SKLAB7 15:05
PROVIDERS: ATTEND Internal Medicine
DX: R41.82 Altered mental status, unspecified (principal); N18.9 Chronic kidney disease, unspecified; J44.9 Chronic obstructive pulmonary disease, unspecified; M19.011 Primary osteoarthritis, right shoulder

== ENCOUNTER → 2024-04-14 | Outpatient (REF) | payer MEDICARE | LOC: SKLAB7 07:16 | PROVIDERS: ATTEND Internal Medicine | DX: K59.00 Constipation, unspecified (principal) ==

== ENCOUNTER → 2024-04-16 | Outpatient (REF) | payer MEDICARE ==
[2024-04-16 16:34] LABS: BASO % 0.2 % (0.0-1.0); EOS # 0.4 10^3/uL (0.0-0.5); EOS % 7.4 % (0.0-3.0); HEMATOCRIT 30.3 % (36.0-47.0); HEMOGLOBIN 9.4 g/dl (12.0-15.5); LYMPH # 0.7 10^3/uL (1.5-5.0); LYMPH % 12.7 % (24.0-44.0); MEAN CORPUSCULAR HEMOGLOBIN 35.7 pg (27.0-33.0); MONO # 0.7 10^3/uL (0.0-0.8); MONO % 12.9 % (2.0-8.0); NEUTROPHILS # 3.5 10^3/uL (1.5-8.5); NEUTROPHILS % 66.6 % (36.0-66.0); PLATELET COUNT, AUTOMATED 207 10^3/uL (150-450); RED BLOOD COUNT 2.63 10^6/uL (4.00-5.40); WHITE BLOOD COUNT 5.3 10^3/uL (4.0-10.0)
[2024-04-16 17:04] LABS: ALBUMIN 3.2 G/DL (3.2-5.2); CALCIUM LEVEL 8.3 MG/DL (8.3-10.6); CREATININE FOR GFR 2.61 MG/DL (0.55-1.30); GLOMERULAR FILTRATION RATE 18.6 (>32); MAGNESIUM LEVEL 2.1 MG/DL (1.8-2.4); POTASSIUM SERUM 4.8 MMOL/L (3.5-5.1); PTH INTACT 474.5 PG/ML (18.5-88.0)
[2024-04-16 17:09] LABS: MEAN CORPUSCULAR VOLUME 115.2 fl (80.0-96.0)
[2024-04-16 17:12] LABS: PLATELET ESTIMATE NORMAL (NORMAL)
== END ==
LOC: SKLAB7 15:05
PROVIDERS: ATTEND Internal Medicine
DX: N18.9 Chronic kidney disease, unspecified (principal)

== ENCOUNTER → 2024-04-19 | Outpatient (REF) | LOC: SKLAB7 19:35 | PROVIDERS: ATTEND Internal Medicine | DX: M85.831 Other specified disorders of bone density and structure, right forearm (principal); M18.9 Osteoarthritis of first carpometacarpal joint, unspecified; M19.011 Primary osteoarthritis, right shoulder; M25.521 Pain in right elbow; W19.XXXA Unspecified fall, initial encounter; Y92.129 Unspecified place in nursing home as the place of occurrence of the external cause; Y93.9 Activity, unspecified ==

== ENCOUNTER → 2024-04-21 | Outpatient (CLI) | payer MEDICARE | LOC: M RAD 15:00 | PROVIDERS: ATTEND Nurse Practitioner | DX: I50.22 Chronic systolic (congestive) heart failure (principal); J84.9 Interstitial pulmonary disease, unspecified ==

== ENCOUNTER → 2024-04-21 | Outpatient (REF) | payer MEDICARE | LOC: SKLAB7 13:51 | PROVIDERS: ATTEND Internal Medicine | DX: Z53.8 Procedure and treatment not carried out for other reasons (principal) ==

== ENCOUNTER 2024-04-26 18:01 | Emergency (ER) | payer MEDICARE ==
[~2024-04-26] VITALS: Ht 165.1 cm; Wt 102.3 kg
[2024-04-26 19:00] VITALS: BP 116/53
[2024-04-26 19:01] VITALS: TEMP 98.1; O2SAT 93
== END 2024-04-26 19:28 | disposition home or self-care (01) ==
LOC: M ED 18:01 → EDBD 18:01 → M ED 19:28
DX: S09.90XA Unspecified injury of head, initial encounter (principal); W18.30XA Fall on same level, unspecified, initial encounter; Y92.129 Unspecified place in nursing home as the place of occurrence of the external cause; Y93.89 Activity, other specified; Y99.9 Unspecified external cause status; M47.892 Other spondylosis, cervical region; M85.88 Other specified disorders of bone density and structure, other site; I50.9 Heart failure, unspecified; N18.30 Chronic kidney disease, stage 3 unspecified; J44.9 Chronic obstructive pulmonary disease, unspecified; Z86.73 Personal history of transient ischemic attack (TIA), and cerebral infarction without residual deficits; D63.1 Anemia in chronic kidney disease; F41.9 Anxiety disorder, unspecified; F32.A Depression, unspecified; Z87.891 Personal history of nicotine dependence; Z79.82 Long term (current) use of aspirin; Z79.899 Other long term (current) drug therapy; Z91.041 Radiographic dye allergy status

== ENCOUNTER → 2024-05-11 | Outpatient (REF) | payer MEDICARE ==
[2024-05-11 08:40] LABS: BASO % 0.3 % (0.0-1.0); EOS # 0.5 10^3/uL (0.0-0.5); EOS % 7.3 % (0.0-3.0); HEMATOCRIT 35.5 % (36.0-47.0); LYMPH # 0.7 10^3/uL (1.5-5.0); LYMPH % 9.9 % (24.0-44.0); MEAN CORPUSCULAR HEMOGLOBIN 35.1 pg (27.0-33.0); MEAN CORPUSCULAR VOLUME 113.4 fl (80.0-96.0); MONO # 0.6 10^3/uL (0.0-0.8); MONO % 9.7 % (2.0-8.0); NEUTROPHILS # 4.8 10^3/uL (1.5-8.5); NEUTROPHILS % 72.6 % (36.0-66.0); PLATELET COUNT, AUTOMATED 299 10^3/uL (150-450); RED BLOOD COUNT 3.13 10^6/uL (4.00-5.40); WHITE BLOOD COUNT 6.6 10^3/uL (4.0-10.0)
[2024-05-11 09:07] LABS: ALBUMIN 3.4 G/DL (3.2-5.2); CALCIUM LEVEL 9.6 MG/DL (8.3-10.6); CREATININE FOR GFR 1.89 MG/DL (0.55-1.30); MAGNESIUM LEVEL 2.3 MG/DL (1.8-2.4); PHOSPHORUS LEVEL 4.3 MG/DL (2.4-5.1); POTASSIUM SERUM 4.5 MMOL/L (3.5-5.1)
== END ==
LOC: SKLAB7 07:31
PROVIDERS: ATTEND Internal Medicine
DX: N18.9 Chronic kidney disease, unspecified (principal)

== ENCOUNTER → 2024-05-26 | Outpatient (REF) | payer MEDICARE ==
[2024-05-26 10:00] LABS: BASO % 0.2 % (0.0-1.0); EOS # 0.5 10^3/uL (0.0-0.5); EOS % 9.4 % (0.0-3.0); HEMATOCRIT 34.1 % (36.0-47.0); HEMOGLOBIN 10.7 g/dl (12.0-15.5); LYMPH # 0.6 10^3/uL (1.5-5.0); MEAN CORPUSCULAR HEMOGLOBIN 35.4 pg (27.0-33.0); MEAN CORPUSCULAR HGB CONC 31.4 g/dl (32.0-36.5); MEAN CORPUSCULAR VOLUME 112.9 fl (80.0-96.0); MONO # 0.4 10^3/uL (0.0-0.8); MONO % 6.6 % (2.0-8.0); NEUTROPHILS # 3.9 10^3/uL (1.5-8.5); NEUTROPHILS % 72.4 % (36.0-66.0); PLATELET COUNT, AUTOMATED 235 10^3/uL (150-450); RED BLOOD COUNT 3.02 10^6/uL (4.00-5.40); WHITE BLOOD COUNT 5.4 10^3/uL (4.0-10.0)
[2024-05-26 10:16] LABS: ALBUMIN 3.1 G/DL (3.2-5.2); CALCIUM LEVEL 9.5 MG/DL (8.3-10.6); CREATININE FOR GFR 2.41 MG/DL (0.55-1.30); GLOMERULAR FILTRATION RATE 20.4 (>32); MAGNESIUM LEVEL 2.1 MG/DL (1.8-2.4); PHOSPHORUS LEVEL 5.4 MG/DL (2.4-5.1); POTASSIUM SERUM 4.1 MMOL/L (3.5-5.1)
[2024-05-26 10:27] LABS: PTH INTACT 290.5 PG/ML (18.5-88.0)
== END ==
LOC: SKLAB7 07:56
PROVIDERS: ATTEND Internal Medicine
DX: N18.9 Chronic kidney disease, unspecified (principal)

== ENCOUNTER → 2024-05-28 | Outpatient (CLI) | payer MEDICARE | LOC: M RAD 10:56 | PROVIDERS: ATTEND Physician Assistant | DX: I65.23 Occlusion and stenosis of bilateral carotid arteries (principal) ==

== ENCOUNTER → 2024-06-26 | Outpatient (REF) | payer MEDICARE ==
[2024-06-26 13:52] LABS: HEMATOCRIT 34.1 % (36.0-47.0); HEMOGLOBIN 10.9 g/dl (12.0-15.5); MEAN CORPUSCULAR HEMOGLOBIN 35.2 pg (27.0-33.0); PLATELET COUNT, AUTOMATED 306 10^3/uL (150-450); WHITE BLOOD COUNT 7.5 10^3/uL (4.0-10.0)
[2024-06-26 14:19] LABS: CALCIUM LEVEL 9.4 MG/DL (8.3-10.6); CREATININE FOR GFR 2.48 MG/DL (0.55-1.30); GLOMERULAR FILTRATION RATE 19.8 (>32); POTASSIUM SERUM 4.9 MMOL/L (3.5-5.1)
== END ==
LOC: SKLAB7 13:13
PROVIDERS: ATTEND Internal Medicine
DX: N18.9 Chronic kidney disease, unspecified (principal)

== ENCOUNTER → 2024-07-27 | Outpatient (REF) | payer MEDICARE ==
[~2024-07-27] MED LIST changes: -CYCL5TAB PO; +CYCL5TAB4 PO
[2024-07-27 09:10] LABS: BASO % 0.3 % (0.0-1.0); EOS # 0.5 10^3/uL (0.0-0.5); HEMATOCRIT 35.8 % (36.0-47.0); HEMOGLOBIN 11.5 g/dl (12.0-15.5); LYMPH # 0.8 10^3/uL (1.5-5.0); LYMPH % 9.9 % (24.0-44.0); MEAN CORPUSCULAR HEMOGLOBIN 35.7 pg (27.0-33.0); MEAN CORPUSCULAR HGB CONC 32.1 g/dl (32.0-36.5); MEAN CORPUSCULAR VOLUME 111.2 fl (80.0-96.0); MONO # 0.6 10^3/uL (0.0-0.8); MONO % 8.2 % (2.0-8.0); NEUTROPHILS # 5.9 10^3/uL (1.5-8.5); NEUTROPHILS % 75.2 % (36.0-66.0); PLATELET COUNT, AUTOMATED 295 10^3/uL (150-450); RED BLOOD COUNT 3.22 10^6/uL (4.00-5.40); WHITE BLOOD COUNT 7.8 10^3/uL (4.0-10.0)
[2024-07-27 09:51] LABS: ALBUMIN 3.1 G/DL (3.2-5.2); CALCIUM LEVEL 9.3 MG/DL (8.3-10.6); CREATININE FOR GFR 2.13 MG/DL (0.55-1.30); GLOMERULAR FILTRATION RATE 23.5 (>32); MAGNESIUM LEVEL 2.2 MG/DL (1.8-2.4); PHOSPHORUS LEVEL 5.1 MG/DL (2.4-5.1); POTASSIUM SERUM 4.5 MMOL/L (3.5-5.1)
[2024-07-27 09:52] LABS: PTH INTACT 435.9 PG/ML (18.5-88.0)
== END ==
LOC: SKLAB7 08:12
PROVIDERS: ATTEND Internal Medicine
DX: N18.9 Chronic kidney disease, unspecified (principal)

== ENCOUNTER → 2024-07-30 | Outpatient (REF) | payer MEDICARE ==
[2024-07-30 11:09] LABS: HEMOGLOBIN A1c 6.2 % (4.0-6.0)
[2024-07-30 11:25] LABS: ALBUMIN 2.9 G/DL (3.2-5.2); BILIRUBIN,TOTAL 0.6 MG/DL (0.3-1.2); CALCIUM LEVEL 9.5 MG/DL (8.3-10.6); GLOMERULAR FILTRATION RATE 25.3 (>32); POTASSIUM SERUM 4.2 MMOL/L (3.5-5.1); THYROID STIMULATING HORMONE 1.185 uIU/ML (0.55-4.78); TOTAL PROTEIN 6.1 G/DL (5.7-8.2)
== END ==
LOC: SKLAB7 07:00
PROVIDERS: ATTEND Internal Medicine
DX: E03.9 Hypothyroidism, unspecified (principal); Z79.899 Other long term (current) drug therapy

== ENCOUNTER → 2024-08-19 | Outpatient (CLI) | payer MEDICARE | LOC: M RAD 14:36 | PROVIDERS: ATTEND Internal Medicine | DX: R06.02 Shortness of breath (principal); R06.2 Wheezing; I51.7 Cardiomegaly; I70.0 Atherosclerosis of aorta ==

== ENCOUNTER → 2024-09-03 | Outpatient (REF) | payer MEDICARE ==
[2024-09-03 09:43] LABS: HEMATOCRIT 35.7 % (36.0-47.0); HEMOGLOBIN 11.3 g/dl (12.0-15.5); MEAN CORPUSCULAR HEMOGLOBIN 35.2 pg (27.0-33.0); MEAN CORPUSCULAR HGB CONC 31.7 g/dl (32.0-36.5); MEAN CORPUSCULAR VOLUME 111.2 fl (80.0-96.0); PLATELET COUNT, AUTOMATED 349 10^3/uL (150-450); RED BLOOD COUNT 3.21 10^6/uL (4.00-5.40); WHITE BLOOD COUNT 8.2 10^3/uL (4.0-10.0)
[2024-09-03 10:19] LABS: ALBUMIN 3.1 G/DL (3.2-5.2); BILIRUBIN,TOTAL 0.6 MG/DL (0.3-1.2); CALCIUM LEVEL 8.3 MG/DL (8.3-10.6); CREATININE FOR GFR 1.93 MG/DL (0.55-1.30); GLOMERULAR FILTRATION RATE 26.3 (>32); POTASSIUM SERUM 5.1 MMOL/L (3.5-5.1); TOTAL PROTEIN 6.3 G/DL (5.7-8.2)
== END ==
LOC: SKLAB7 07:00
PROVIDERS: ATTEND Internal Medicine
DX: N18.9 Chronic kidney disease, unspecified (principal); E11.9 Type 2 diabetes mellitus without complications

== ENCOUNTER → 2024-10-15 | Outpatient (REF) | payer MEDICARE ==
[2024-10-15 08:52] LABS: CALCIUM LEVEL 7.9 MG/DL (8.3-10.6); CREATININE FOR GFR 2.24 MG/DL (0.55-1.30); GLOMERULAR FILTRATION RATE 22.2 (>32)
== END ==
LOC: SKLAB7 07:00
PROVIDERS: ATTEND Internal Medicine
DX: N18.9 Chronic kidney disease, unspecified (principal)

== ENCOUNTER → 2024-11-02 | Outpatient (REF) | payer MEDICARE ==
[2024-11-02 08:28] LABS: HEMATOCRIT 32.9 % (36.0-47.0); HEMOGLOBIN 10.5 g/dl (12.0-15.5); MEAN CORPUSCULAR HEMOGLOBIN 36.5 pg (27.0-33.0); MEAN CORPUSCULAR HGB CONC 31.9 g/dl (32.0-36.5); PLATELET COUNT, AUTOMATED 246 10^3/uL (150-450); RED BLOOD COUNT 2.88 10^6/uL (4.00-5.40); WHITE BLOOD COUNT 6.4 10^3/uL (4.0-10.0)
[2024-11-02 08:29] LABS: MEAN CORPUSCULAR VOLUME 114.2 fl (80.0-96.0)
[2024-11-02 08:52] LABS: URIC ACID 7.3 MG/DL (3.1-7.8)
[2024-11-02 08:55] LABS: ALBUMIN 3.1 G/DL (3.2-5.2); CALCIUM LEVEL 8.4 MG/DL (8.3-10.6); CREATININE FOR GFR 2.01 MG/DL (0.55-1.30); GLOMERULAR FILTRATION RATE 25.1 (>32); MAGNESIUM LEVEL 2.3 MG/DL (1.8-2.4); PHOSPHORUS LEVEL 5.3 MG/DL (2.4-5.1); POTASSIUM SERUM 3.9 MMOL/L (3.5-5.1); PTH INTACT 206.1 PG/ML (18.5-88.0)
== END ==
LOC: SKLAB7 07:00
PROVIDERS: ATTEND Internal Medicine
DX: N18.9 Chronic kidney disease, unspecified (principal); I12.9 Hypertensive chronic kidney disease with stage 1 through stage 4 chronic kidney disease, or unspecified chronic kidney disease

== ENCOUNTER 2024-11-17 10:20 | Inpatient (IN) | payer MEDICARE ==
[~2024-11-17] VITALS: Ht 170.2 cm; Wt 104.7 kg
[2024-11-17] VITALS (48 sets, daily range): BP systolic 120–152; BP diastolic 56–68; TEMP 97.4; O2SAT 93–100
[2024-11-17] MEDS: C1 ESTERASE INHIBITOR (HUMAN) 2,000 UNIT in IV 1 EA IV ONE (10:30)
[2024-11-17] MEDS ORDERED: RACEPINEPHrine 2.25% UD INHAL As Ordered ONE (10:33)
[2024-11-17] MEDS: FAMOTIDINE 20MG/2ML VIAL IVP ONE (10:35)
[2024-11-17] MEDS: dexAMETHasone 20MG/5ML VIAL IV ONE (10:40)
[2024-11-17] MEDS: MINI IV ONE (10:55)
[2024-11-17] MEDS: TRANEXAMIC ACID IV ONE (10:55)
[2024-11-17] MEDS: DEXTROSE 5% IV ONE (10:55)
[2024-11-17] MEDS: LIDOCAINE W/EPINEPHRINE 1% 20ML VIAL As Ordered ONE (11:00)
[2024-11-17] MEDS: PHENYLEPHRINE REG/STR 0.5% NASAL SPRAY 15 ML As Ordered ONE (11:00)
[2024-11-17] MEDS: RACEPINEPHrine 2.25% UD INHAL NEB ONE (11:04)
[2024-11-17] MEDS: RACEPINEPHrine 2.25% UD INHAL INH ONE (11:08)
[2024-11-17] MEDS ORDERED: KETAMINE HCL 200MG/20ML VIAL As Ordered ONE (11:10)
[2024-11-17] MEDS ORDERED: LIDOCAINE 2% 100MG/5ML SDV (FOR ANES.) As Ordered ONE (11:16)
[2024-11-17] MEDS ORDERED: propofoL 200 MG/20 ML VIAL As Ordered ONE (11:16)
[2024-11-17] MEDS ORDERED: ROCURONIUM BROMIDE 50MG/5ML VIAL As Ordered ONE (11:20)
[2024-11-17] MEDS ORDERED: MIDAZOLAM INJ 2MG/2ML VIAL As Ordered ONE (11:21)
[2024-11-17] MEDS ORDERED: PROPOFOL 1,000 MG/100 ML VIAL As Ordered ONE (11:22)
[2024-11-17 11:33] LABS: ALBUMIN 3.3 G/DL (3.2-5.2); BILIRUBIN,DIRECT 0.2 MG/DL (<0.4); BILIRUBIN,TOTAL 0.7 MG/DL (0.3-1.2); CALCIUM LEVEL 7.8 MG/DL (8.3-10.6); CREATININE FOR GFR 3.28 MG/DL (0.55-1.30); GLOMERULAR FILTRATION RATE 14.3 (>32); POTASSIUM SERUM 5.1 MMOL/L (3.5-5.1); TOTAL PROTEIN 6.7 G/DL (5.7-8.2)
[2024-11-17] MEDS ORDERED: LIDOCAINE 4% TOPICAL SOLN 50ML BTL As Ordered ONE (12:12)
[2024-11-17] MEDS ORDERED: propofoL 1,000 MG in IV 1 EA IV SCH (12:20)
[2024-11-17 12:58] LABS: KETONE, URINE AUTO RFX NEGATIVE (NEGATIVE); NITRITE, URINE AUTO RFX NEGATIVE (NEGATIVE); RBC, URINE AUTO RFX 4 /HPF (0-3); SQUAM EPITHELIAL CELL UR AURFX 0 /HPF (0-6)
[2024-11-17] MEDS: propofoL 1,000 MG in IV 1 EA IV SCH ×2 (12:58→16:16)
[2024-11-17 13:20] LABS: LEUKOCYTE ESTERASE UR AUTO RFX 3+ (NEGATIVE); WBC, URINE AUTO RFX TNTC /HPF (0-3)
[2024-11-17] MEDS ORDERED: diphenhydrAMINE 50MG CAP PO SCH (14:00)
[2024-11-17] MEDS: PANTOPRAZOLE 40MG VIAL IV SCH (14:01)
[2024-11-17] MEDS: diphenhydrAMINE 50MG/ML VIAL IV SCH (14:49)
[2024-11-17] MEDS: ALBUTEROL SULFATE 2.5MG/0.5ML INH NEB SOLN NEB SCH (16:17)
[2024-11-17] MEDS: methylPREDNISolone 40MG 1ML VIAL IV SCH (17:58)
[2024-11-17] MEDS: cefTRIAXone SOD 1 GM in DEXTROSE 5% (D5W) ADV/MINI-BAG 50 ML IV SCH (17:58)
[2024-11-17] MEDS: NS (Normal Saline) 0.9% 1,000 ML IV SCH (19:19)
[2024-11-18] VITALS (97 sets, daily range): BP systolic 104–155; BP diastolic 50–67; TEMP 97.4–98.2; O2SAT 90–100
[2024-11-18 05:26] LABS: HEMATOCRIT 29.6 % (36.0-47.0); HEMOGLOBIN 9.7 g/dl (12.0-15.5); LYMPH # 0.1 10^3/uL (1.5-5.0); LYMPH % 2.4 % (24.0-44.0); MEAN CORPUSCULAR HEMOGLOBIN 36.1 pg (27.0-33.0); MEAN CORPUSCULAR HGB CONC 32.8 g/dl (32.0-36.5); MONO # 0.1 10^3/uL (0.0-0.8); MONO % 2.1 % (2.0-8.0); NEUTROPHILS # 5.5 10^3/uL (1.5-8.5); NEUTROPHILS % 95.2 % (36.0-66.0); PLATELET COUNT, AUTOMATED 191 10^3/uL (150-450); RED BLOOD COUNT 2.69 10^6/uL (4.00-5.40); WHITE BLOOD COUNT 5.8 10^3/uL (4.0-10.0)
[2024-11-18 05:52] LABS: ALBUMIN 2.9 G/DL (3.2-5.2); BILIRUBIN,TOTAL 0.5 MG/DL (0.3-1.2); CALCIUM LEVEL 7.7 MG/DL (8.3-10.6); CREATININE FOR GFR 2.53 MG/DL (0.55-1.30); GLOMERULAR FILTRATION RATE 19.3 (>32); MAGNESIUM LEVEL 2.4 MG/DL (1.8-2.4); POTASSIUM SERUM 3.7 MMOL/L (3.5-5.1); TOTAL PROTEIN 5.8 G/DL (5.7-8.2)
[2024-11-18 05:54] LABS: ABG BASE EXCESS -1.2 (-2.0-2.0); ABG HCO3 20.9 MMOL/L (22.0-26.0); ABG PARTIAL PRESSURE CO2 25.8 mmHg (35.0-45.0); ABG PARTIAL PRESSURE O2 103.8 mmHg (75.0-100.0); ABG STANDARD HCO3 23.4 MMOL/L. (22.0-26.0); ABG TOTAL CO2 21.7 MMOL/L (23.0-31.0); ABG pH (ARTERIAL) 7.526 UNITS (7.350-7.450)
[2024-11-18] MEDS ORDERED: CITA20TA7 PO (07:19)
[2024-11-18] MEDS ORDERED: ATOR40TA75 PO (07:19)
[2024-11-18] MEDS ORDERED: CELE20TA PO (07:19)
[2024-11-18] MEDS ORDERED: SODIGEL NARES (07:19)
[2024-11-18] MEDS ORDERED: CALC1CAP31 PO (07:19)
[2024-11-18] MEDS ORDERED: ASPI81TA26 PO (07:19)
[2024-11-18] MEDS ORDERED: REFR0.5D8 OU (07:19)
[2024-11-18] MEDS ORDERED: MILKSUS3 PO (07:36)
[2024-11-18] MEDS ORDERED: CINA30TA4 PO (07:36)
[2024-11-18] MEDS ORDERED: DULC10SU2 PR (07:36)
[2024-11-18] MEDS ORDERED: FLEEENE12 PR (07:36)
[2024-11-18] MEDS ORDERED: OSEL30CA PO (07:36)
[2024-11-18] MEDS ORDERED: ACET1TAB55 PO (07:36)
[2024-11-18] MEDS ORDERED: LIDO4CRE12 TOP (07:36)
[2024-11-18] MEDS ORDERED: FLUT1BLS8 INH (07:36)
[2024-11-18] MEDS ORDERED: TORS20TA2 PO (07:36)
[2024-11-18] MEDS ORDERED: BUSP10TA PO (07:36)
[2024-11-18] MEDS ORDERED: MIRA3350 PO (07:36)
[2024-11-18] MEDS ORDERED: PRES10CA2 PO (07:36)
[2024-11-18] MEDS ORDERED: SFHHYD1CR VG (07:36)
[2024-11-18] MEDS ORDERED: ACET650T61 PO (07:36)
[2024-11-18] MEDS ORDERED: JARD1TAB PO (07:36)
[2024-11-18] MEDS ORDERED: HOME MED LIST COMPLETE! XX SCH (07:40)
[2024-11-18] MEDS: KCL 10MEQ/100ML SWI (KRUN) 10 MEQ in IV 1 EA IV SCH (12:45)
[2024-11-18] MEDS: HEPARIN SOD (PORCINE) 5000UNITS/ML 1ML VIAL/SYRINGE SQ SCH (13:39)
[2024-11-19] VITALS (43 sets, daily range): BP systolic 93–175; BP diastolic 51–119; TEMP 96.8–97.4; O2SAT 85–100
[2024-11-19 04:54] LABS: HEMOGLOBIN 10.5 g/dl (12.0-15.5); LYMPH # 0.2 10^3/uL (1.5-5.0); LYMPH % 2.3 % (24.0-44.0); MEAN CORPUSCULAR HEMOGLOBIN 36.1 pg (27.0-33.0); MEAN CORPUSCULAR HGB CONC 31.8 g/dl (32.0-36.5); MEAN CORPUSCULAR VOLUME 113.4 fl (80.0-96.0); MONO # 0.4 10^3/uL (0.0-0.8); MONO % 4.9 % (2.0-8.0); NEUTROPHILS # 6.9 10^3/uL (1.5-8.5); NEUTROPHILS % 92.3 % (36.0-66.0); PLATELET COUNT, AUTOMATED 216 10^3/uL (150-450); RED BLOOD COUNT 2.91 10^6/uL (4.00-5.40); WHITE BLOOD COUNT 7.5 10^3/uL (4.0-10.0)
[2024-11-19 05:12] LABS: CALCIUM LEVEL 7.5 MG/DL (8.3-10.6); CREATININE FOR GFR 2.12 MG/DL (0.55-1.30); GLOMERULAR FILTRATION RATE 23.6 (>32); MAGNESIUM LEVEL 2.4 MG/DL (1.8-2.4); POTASSIUM SERUM 3.6 MMOL/L (3.5-5.1)
[2024-11-19 06:55] LABS: VENOUS BASE EXCESS -3.1 (-2.0-2.0); VENOUS HCO3 21.4 MMOL/L (23.0-27.0); VENOUS O2 SATURATION 93.1 % (60.0-80.0); VENOUS PARTIAL PRESSURE CO2 36.4 mmHg (38.0-50.0); VENOUS PARTIAL PRESSURE O2 77.2 mmHg (30.0-50.0); VENOUS PH 7.387 UNITS (7.330-7.430); VENOUS STANDARD HCO3 21.8 MMOL/L; VENOUS TOTAL CO2 22.5 MMOL/L (24.0-28.0)
[2024-11-19] MEDS: TIOTROPIUM INHALER/CAPSULE (SPIRIVA) INH SCH (08:00)
[2024-11-19] MEDS ORDERED: MEROPENEM INJ 1 GM in IV 1 EA IV SCH (08:30)
[2024-11-19] MEDS: KCL 10MEQ/100ML SWI (KRUN) 10 MEQ in IV 1 EA IV SCH (09:15)
[2024-11-19] MEDS: ERTAPENEM SODIUM 1 GM in NS MINI-BAG PLUS 50 ML IV SCH (11:58)
[2024-11-19] MEDS: IPRATROPIUM 0.5MG/ALBUTEROL 2.5MG INH SOL UD 3ML (DUONEB) NEB SCH (12:00)
[2024-11-19] MEDS ORDERED: MOM 30ML SUSPENSION UDC PO PRN (15:15)
[2024-11-19] MEDS ORDERED: MIRALAX *UNIT DOSE* 17GM PACKET PO PRN (15:15)
[2024-11-19] MEDS ORDERED: FAMOTIDINE IV BAG 20 MG in IV 1 EA IV SCH (15:55)
[2024-11-19] MEDS ORDERED: TORSEMIDE 20 MG TAB PO SCH (17:00)
[2024-11-19] MEDS: OLANZapine INTRAMUSCULAR 10MG VIAL IM ONE (17:06)
[2024-11-19] MEDS: D5W/0.45% SODIUM CHLORIDE 1,000 ML IV SCH (17:06)
[2024-11-19] MEDS: FUROSEMIDE 100MG/10ML VIAL IV SCH (18:01)
[2024-11-19] MEDS: ADVAIR HFA 230/21MCG INHALER INH SCH (19:57)
[2024-11-19] MEDS ORDERED: busPIRone 10 MG TAB PO SCH (21:00)
[2024-11-19] MEDS ORDERED: ATORVASTATIN 20 MG TAB PO SCH (21:00)
[2024-11-19] MEDS: FAMOTIDINE 20MG/2ML VIAL IVP SCH (22:00)
[2024-11-20 03:22] VITALS: BP 115/86; TEMP 97; O2SAT 93
[2024-11-20 05:50] LABS: HEMATOCRIT 31.8 % (36.0-47.0); LYMPH # 0.1 10^3/uL (1.5-5.0); LYMPH % 1.4 % (24.0-44.0); MEAN CORPUSCULAR HEMOGLOBIN 36.5 pg (27.0-33.0); MEAN CORPUSCULAR HGB CONC 31.4 g/dl (32.0-36.5); MONO # 0.3 10^3/uL (0.0-0.8); MONO % 3.9 % (2.0-8.0); NEUTROPHILS # 8.1 10^3/uL (1.5-8.5); NEUTROPHILS % 94.2 % (36.0-66.0); PLATELET COUNT, AUTOMATED 222 10^3/uL (150-450); RED BLOOD COUNT 2.74 10^6/uL (4.00-5.40); WHITE BLOOD COUNT 8.6 10^3/uL (4.0-10.0)
[2024-11-20 05:52] LABS: MEAN CORPUSCULAR VOLUME 116.1 fl (80.0-96.0)
[2024-11-20] MEDS ORDERED: LEVOTHYROXINE 100MCG TABLET (0.1MG) PO SCH (06:00)
[2024-11-20 06:14] LABS: CALCIUM LEVEL 7.7 MG/DL (8.3-10.6); CREATININE FOR GFR 1.97 MG/DL (0.55-1.30); GLOMERULAR FILTRATION RATE 25.7 (>32); POTASSIUM SERUM 3.9 MMOL/L (3.5-5.1)
[2024-11-20] MEDS ORDERED: allopurinoL 100 MG TAB PO SCH (09:00)
[2024-11-20] MEDS ORDERED: DAPAGLIFLOZIN PROPANEDIOL 10MG TABLET (FARXIGA) PO SCH (09:00)
[2024-11-20] MEDS ORDERED: CitaloPRAM (CeleXA) 10 MG TABLET PO SCH (09:00)
[2024-11-20] MEDS ORDERED: ASPIRIN 81MG ENTERIC TABLET PO SCH (09:00)
[2024-11-20] MEDS ORDERED: FERROUS SULFATE 325MG TAB PO SCH (09:00)
[2024-11-20] MEDS ORDERED: CINACALCET 30 MG TAB (SENSIPAR) PO SCH (09:00)
[2024-11-20] MEDS ORDERED: CLOPIDOGREL 75 MG TAB PO SCH (09:00)
[2024-11-20] MEDS: LEVOTHYROXINE 100MCG (0.1MG) 5ML SDV PF (SOLUTION FORM) IV SCH (09:24)
[2024-11-20] MEDS: D5W 1,000 ML IV SCH (09:29)
[2024-11-20 12:00] VITALS: BP 143/56; TEMP 97.1; O2SAT 92
[2024-11-20] MEDS: allopurinoL 100 MG TAB PO SCH (14:02)
[2024-11-20] MEDS: busPIRone 10 MG TAB PO SCH (14:02)
[2024-11-20] MEDS: CINACALCET 30 MG TAB (SENSIPAR) PO SCH (14:02)
[2024-11-20] MEDS: APIXABAN 2.5 MG TAB (ELIQUIS) PO SCH (14:02)
[2024-11-20] MEDS: CLOPIDOGREL 75 MG TAB PO SCH (14:03)
[2024-11-20] MEDS: CitaloPRAM (CeleXA) 10 MG TABLET PO SCH (14:03)
[2024-11-20] MEDS: DAPAGLIFLOZIN PROPANEDIOL 10MG TABLET (FARXIGA) PO SCH (14:03)
[2024-11-20] MEDS: FERROUS SULFATE 325MG TAB PO SCH (14:03)
[2024-11-20] MEDS: OLANZapine 2.5MG TABLET PO PRN (14:03)
[2024-11-20 14:55] VITALS: O2SAT 94
[2024-11-20] MEDS: TORSEMIDE 20 MG TAB PO SCH (17:56)
[2024-11-20 18:03] VITALS: O2SAT 94
[2024-11-20 18:47] VITALS: O2SAT 85; O2SAT 90
[2024-11-20 20:00] VITALS: BP 112/66; TEMP 97; O2SAT 92
[2024-11-20] MEDS: ATORVASTATIN 20 MG TAB PO SCH (21:07)
[2024-11-21 04:00] VITALS: BP 139/78; TEMP 97; O2SAT 93
[2024-11-21] MEDS: LEVOTHYROXINE 100MCG TABLET (0.1MG) PO SCH (06:09)
[2024-11-21 06:31] LABS: HEMATOCRIT 33.4 % (36.0-47.0); HEMOGLOBIN 10.3 g/dl (12.0-15.5); LYMPH # 0.1 10^3/uL (1.5-5.0); LYMPH % 1.8 % (24.0-44.0); MEAN CORPUSCULAR HEMOGLOBIN 35.4 pg (27.0-33.0); MEAN CORPUSCULAR HGB CONC 30.8 g/dl (32.0-36.5); MONO # 0.3 10^3/uL (0.0-0.8); MONO % 4.5 % (2.0-8.0); NEUTROPHILS # 6.8 10^3/uL (1.5-8.5); NEUTROPHILS % 92.7 % (36.0-66.0); PLATELET COUNT, AUTOMATED 214 10^3/uL (150-450); RED BLOOD COUNT 2.91 10^6/uL (4.00-5.40); WHITE BLOOD COUNT 7.3 10^3/uL (4.0-10.0)
[2024-11-21 06:35] LABS: MEAN CORPUSCULAR VOLUME 114.8 fl (80.0-96.0)
[2024-11-21 07:02] LABS: CALCIUM LEVEL 7.8 MG/DL (8.3-10.6); GLOMERULAR FILTRATION RATE 25.3 (>32); POTASSIUM SERUM 4.1 MMOL/L (3.5-5.1)
[2024-11-21 07:04] LABS: ANISOCYTOSIS 1+; POIKILOCYTOSIS 1+; SCHISTOCYTES 1+
[2024-11-21 07:06] LABS: TEAR DROP CELLS 1+
[2024-11-21 07:07] LABS: PLATELET ESTIMATE NORMAL (NORMAL)
[2024-11-21] MEDS: D5W 1,000 ML IV SCH (09:48)
[2024-11-21] MEDS: methylPREDNISolone 40MG 1ML VIAL IV SCH (09:50)
[2024-11-21 12:00] VITALS: BP 142/78; TEMP 96.6; O2SAT 99
[2024-11-21] MEDS: METOPROLOL SUCC *XL* 12.5MG PER 1/2 TAB (TopROL *XL*) PO SCH (12:56)
[2024-11-21 20:00] VITALS: BP 178/83; TEMP 97; O2SAT 94
[2024-11-21] MEDS: ACETAMINOPHEN 325 MG TAB PO ONE (21:19)
[2024-11-22 04:00] VITALS: BP 181/68; TEMP 97.2; O2SAT 91
[2024-11-22 06:15] LABS: HEMATOCRIT 31.2 % (36.0-47.0); HEMOGLOBIN 9.8 g/dl (12.0-15.5); LYMPH # 0.2 10^3/uL (1.5-5.0); LYMPH % 2.3 % (24.0-44.0); MEAN CORPUSCULAR HEMOGLOBIN 35.5 pg (27.0-33.0); MEAN CORPUSCULAR HGB CONC 31.4 g/dl (32.0-36.5); MONO # 0.2 10^3/uL (0.0-0.8); MONO % 3.3 % (2.0-8.0); NEUTROPHILS # 6.5 10^3/uL (1.5-8.5); NEUTROPHILS % 93.3 % (36.0-66.0); PLATELET COUNT, AUTOMATED 205 10^3/uL (150-450); RED BLOOD COUNT 2.76 10^6/uL (4.00-5.40)
[2024-11-22 06:38] LABS: CALCIUM LEVEL 7.5 MG/DL (8.3-10.6); CREATININE FOR GFR 2.01 MG/DL (0.55-1.30); GLOMERULAR FILTRATION RATE 25.1 (>32); POTASSIUM SERUM 3.9 MMOL/L (3.5-5.1)
[2024-11-22 12:00] VITALS: BP 161/67; TEMP 96.8; O2SAT 93
[2024-11-22 20:55] VITALS: BP 147/68; TEMP 96.6; O2SAT 93
[2024-11-23 05:28] VITALS: BP 145/67; TEMP 97.3; O2SAT 91
[2024-11-23 06:02] LABS: BASO % 0.2 % (0.0-1.0); HEMATOCRIT 33.7 % (36.0-47.0); HEMOGLOBIN 10.5 g/dl (12.0-15.5); LYMPH # 0.1 10^3/uL (1.5-5.0); MEAN CORPUSCULAR HEMOGLOBIN 34.7 pg (27.0-33.0); MEAN CORPUSCULAR HGB CONC 31.2 g/dl (32.0-36.5); MEAN CORPUSCULAR VOLUME 111.2 fl (80.0-96.0); MONO # 0.2 10^3/uL (0.0-0.8); MONO % 3.4 % (2.0-8.0); NEUTROPHILS % 92.6 % (36.0-66.0); PLATELET COUNT, AUTOMATED 237 10^3/uL (150-450); RED BLOOD COUNT 3.03 10^6/uL (4.00-5.40); WHITE BLOOD COUNT 6.5 10^3/uL (4.0-10.0)
[2024-11-23 06:29] LABS: CREATININE FOR GFR 2.19 MG/DL (0.55-1.30); GLOMERULAR FILTRATION RATE 22.8 (>32); POTASSIUM SERUM 3.6 MMOL/L (3.5-5.1)
[2024-11-23 09:15] VITALS: BP 108/77
[2024-11-23] MEDS: D5W 1,000 ML IV SCH (09:53)
[2024-11-23] MEDS ORDERED: VARIBAR NECTAR 40% w/v 240ML SUSP BTL As Ordered ONE (09:57)
[2024-11-23] MEDS ORDERED: VARIBAR PUDDING 40% w/v 230ML TUBE As Ordered ONE (09:57)
[2024-11-23] MEDS ORDERED: BARIUM SULFATE 700 MG TABLET (E-Z-DISK) As Ordered ONE (09:57)
[2024-11-23] MEDS ORDERED: E-Z-PAQUE 96% w/w SUSP 176GM BTL As Ordered ONE (09:57)
[2024-11-23 12:00] VITALS: BP 131/69; TEMP 97.3; O2SAT 97
[2024-11-23 15:12] VITALS: O2SAT 89
[2024-11-23] MEDS: predniSONE 50 MG TAB PO SCH (20:37)
[2024-11-23 20:45] VITALS: O2SAT 88
[2024-11-23 20:49] VITALS: BP 114/57; TEMP 97; O2SAT 90
[2024-11-23] MEDS: ACETAMINOPHEN 325 MG TAB PO ONE (21:09)
[2024-11-24] VITALS (11 sets, daily range): BP systolic 101–133; BP diastolic 60–67; TEMP 96.8–97.5; O2SAT 80–97
[2024-11-24] MEDS: cefTRIAXone SOD 2 GM in DEXTROSE 5% (D5W) ADV/MINI-BAG 50 ML IV SCH (03:09)
[2024-11-24 03:27] LABS: BASO % 0.1 % (0.0-1.0); HEMATOCRIT 32.5 % (36.0-47.0); HEMOGLOBIN 10.3 g/dl (12.0-15.5); LYMPH # 0.1 10^3/uL (1.5-5.0); LYMPH % 1.6 % (24.0-44.0); MEAN CORPUSCULAR HGB CONC 31.7 g/dl (32.0-36.5); MEAN CORPUSCULAR VOLUME 113.6 fl (80.0-96.0); MONO # 0.5 10^3/uL (0.0-0.8); MONO % 6.2 % (2.0-8.0); NEUTROPHILS # 7.8 10^3/uL (1.5-8.5); NEUTROPHILS % 90.9 % (36.0-66.0); PLATELET COUNT, AUTOMATED 235 10^3/uL (150-450); RED BLOOD COUNT 2.86 10^6/uL (4.00-5.40); WHITE BLOOD COUNT 8.5 10^3/uL (4.0-10.0)
[2024-11-24 05:51] LABS: BASO % 0.1 % (0.0-1.0); HEMOGLOBIN 10.6 g/dl (12.0-15.5); LYMPH # 0.2 10^3/uL (1.5-5.0); LYMPH % 1.9 % (24.0-44.0); MEAN CORPUSCULAR HEMOGLOBIN 35.7 pg (27.0-33.0); MEAN CORPUSCULAR HGB CONC 32.1 g/dl (32.0-36.5); MEAN CORPUSCULAR VOLUME 111.1 fl (80.0-96.0); MONO # 0.5 10^3/uL (0.0-0.8); MONO % 5.4 % (2.0-8.0); NEUTROPHILS # 7.7 10^3/uL (1.5-8.5); NEUTROPHILS % 91.8 % (36.0-66.0); PLATELET COUNT, AUTOMATED 231 10^3/uL (150-450); RED BLOOD COUNT 2.97 10^6/uL (4.00-5.40); WHITE BLOOD COUNT 8.4 10^3/uL (4.0-10.0)
[2024-11-24 06:16] LABS: CALCIUM LEVEL 7.3 MG/DL (8.3-10.6); CREATININE FOR GFR 2.11 MG/DL (0.55-1.30); GLOMERULAR FILTRATION RATE 23.8 (>32); POTASSIUM SERUM 3.3 MMOL/L (3.5-5.1)
[2024-11-24] MEDS: POTASSIUM CHLORIDE 10MEQ SR TABLET PO ONE (09:00)
[2024-11-24] MEDS: KCL 20MEQ IN D5W 1000ML 1,000 ML IV SCH (13:39)
[2024-11-24] MEDS: OLANZapine INTRAMUSCULAR 10MG VIAL IM ONE (17:03)
[2024-11-25 03:42] VITALS: BP 166/77; TEMP 97.2; O2SAT 96
[2024-11-25 06:11] LABS: BASO % 0.1 % (0.0-1.0); HEMATOCRIT 34.5 % (36.0-47.0); HEMOGLOBIN 10.9 g/dl (12.0-15.5); LYMPH # 0.2 10^3/uL (1.5-5.0); LYMPH % 2.2 % (24.0-44.0); MEAN CORPUSCULAR HEMOGLOBIN 34.8 pg (27.0-33.0); MEAN CORPUSCULAR HGB CONC 31.6 g/dl (32.0-36.5); MEAN CORPUSCULAR VOLUME 110.2 fl (80.0-96.0); MONO # 0.4 10^3/uL (0.0-0.8); MONO % 5.5 % (2.0-8.0); NEUTROPHILS % 91.2 % (36.0-66.0); PLATELET COUNT, AUTOMATED 236 10^3/uL (150-450); RED BLOOD COUNT 3.13 10^6/uL (4.00-5.40); WHITE BLOOD COUNT 7.7 10^3/uL (4.0-10.0)
[2024-11-25 06:27] LABS: CALCIUM LEVEL 7.5 MG/DL (8.3-10.6); CREATININE FOR GFR 2.06 MG/DL (0.55-1.30); GLOMERULAR FILTRATION RATE 24.4 (>32); POTASSIUM SERUM 3.8 MMOL/L (3.5-5.1)
[2024-11-25 06:57] LABS: PERCENT SATURATION 24.4 % (13.2-45.0)
[2024-11-25 07:00] LABS: FERRITIN 120.7 NG/ML (7.3-270.7)
[2024-11-25 07:05] LABS: FOLATE 12.23 NG/ML (>5.4)
[2024-11-25 07:17] LABS: SOURCE PERIPHERAL SMEAR
[2024-11-25] MEDS: ANALGESIC BALM CRM 3OZ TOP PRN (10:04)
[2024-11-25] MEDS: FUROSEMIDE 100MG/10ML VIAL IV ONE (11:23)
[2024-11-25 12:00] VITALS: BP 101/50; TEMP 97; O2SAT 97
[2024-11-25] MEDS: POTASSIUM CHLORIDE 10MEQ SR TABLET PO ONE (12:49)
[2024-11-25 16:50] LABS: CALCIUM LEVEL 7.5 MG/DL (8.3-10.6); CREATININE FOR GFR 1.96 MG/DL (0.55-1.30); GLOMERULAR FILTRATION RATE 25.9 (>32); MAGNESIUM LEVEL 2.2 MG/DL (1.8-2.4); POTASSIUM SERUM 4.1 MMOL/L (3.5-5.1)
[2024-11-25] MEDS: CYANOCOBALAMIN 500 MCG TAB PO SCH (16:59)
[2024-11-25 20:20] VITALS: BP 101/61; TEMP 97.2; O2SAT 95
[2024-11-25 22:02] VITALS: O2SAT 97
[2024-11-26 04:00] VITALS: BP 125/71; TEMP 96.8; O2SAT 97
[2024-11-26 05:57] LABS: BASO % 0.1 % (0.0-1.0); HEMOGLOBIN 11.3 g/dl (12.0-15.5); LYMPH # 0.1 10^3/uL (1.5-5.0); LYMPH % 1.9 % (24.0-44.0); MEAN CORPUSCULAR HEMOGLOBIN 36.1 pg (27.0-33.0); MEAN CORPUSCULAR HGB CONC 32.3 g/dl (32.0-36.5); MEAN CORPUSCULAR VOLUME 111.8 fl (80.0-96.0); MONO # 0.3 10^3/uL (0.0-0.8); MONO % 4.7 % (2.0-8.0); NEUTROPHILS # 6.8 10^3/uL (1.5-8.5); NEUTROPHILS % 92.6 % (36.0-66.0); PLATELET COUNT, AUTOMATED 251 10^3/uL (150-450); RED BLOOD COUNT 3.13 10^6/uL (4.00-5.40); WHITE BLOOD COUNT 7.3 10^3/uL (4.0-10.0)
[2024-11-26 06:21] LABS: CALCIUM LEVEL 7.7 MG/DL (8.3-10.6); CREATININE FOR GFR 1.95 MG/DL (0.55-1.30); POTASSIUM SERUM 4.2 MMOL/L (3.5-5.1)
[2024-11-26] MEDS: FUROSEMIDE 40MG/4ML VIAL IV SCH (08:16)
[2024-11-26] MEDS: KCL 20MEQ IN D5W 1000ML 1,000 ML IV SCH (10:41)
[2024-11-26 12:00] VITALS: BP 114/60; TEMP 97.2; O2SAT 94
[2024-11-26 13:58] LABS: CALCIUM LEVEL 7.7 MG/DL (8.3-10.6); CREATININE FOR GFR 1.9 MG/DL (0.55-1.30); GLOMERULAR FILTRATION RATE 26.8 (>32); POTASSIUM SERUM 3.7 MMOL/L (3.5-5.1)
[2024-11-26] MEDS ORDERED: LORazepam 0.5 MG TAB PO PRN (15:30)
[2024-11-26 15:53] LABS: CALCIUM LEVEL 7.6 MG/DL (8.3-10.6); CREATININE FOR GFR 1.93 MG/DL (0.55-1.30); GLOMERULAR FILTRATION RATE 26.3 (>32); POTASSIUM SERUM 3.6 MMOL/L (3.5-5.1)
[2024-11-26 20:00] VITALS: BP 117/59; TEMP 97.3; O2SAT 95
[2024-11-26] MEDS: METAMUCIL (PSYLLIUM) PACKET PO SCH (20:29)
[2024-11-26] MEDS: MIRALAX *UNIT DOSE* 17GM PACKET PO SCH (20:30)
[2024-11-26] MEDS: FIBER-CON 625 MG TAB PO SCH (21:00)
[2024-11-26] MEDS: MOM 30ML SUSPENSION UDC PO SCH (21:00)
[2024-11-26 23:36] VITALS: O2SAT 95
[2024-11-26 23:55] LABS: CALCIUM LEVEL 7.3 MG/DL (8.3-10.6); CREATININE FOR GFR 1.97 MG/DL (0.55-1.30); GLOMERULAR FILTRATION RATE 25.7 (>32); POTASSIUM SERUM 3.6 MMOL/L (3.5-5.1)
[2024-11-27 04:00] VITALS: BP 116/62; TEMP 97.5; O2SAT 97
[2024-11-27 06:30] LABS: CALCIUM LEVEL 7.5 MG/DL (8.3-10.6); CREATININE FOR GFR 1.89 MG/DL (0.55-1.30); POTASSIUM SERUM 3.6 MMOL/L (3.5-5.1)
[2024-11-27] MEDS: SENOKOT S TAB PO SCH (09:28)
[2024-11-27] MEDS: predniSONE 50 MG TAB PO SCH (09:28)
[2024-11-27] MEDS: POTASSIUM CHLORIDE 10MEQ SR TABLET PO SCH (09:36)
[2024-11-27 11:30] VITALS: BP 108/56; TEMP 96.8; O2SAT 97
[2024-11-27 11:49] VITALS: BP 109/56; TEMP 96.8; O2SAT 95
[2024-11-27 15:48] LABS: CALCIUM LEVEL 7.4 MG/DL (8.3-10.6); CREATININE FOR GFR 1.87 MG/DL (0.55-1.30); GLOMERULAR FILTRATION RATE 27.3 (>32); POTASSIUM SERUM 3.8 MMOL/L (3.5-5.1)
[2024-11-27 20:23] VITALS: BP 106/64; TEMP 97.3; O2SAT 97
[2024-11-27] MEDS: OLANZapine ORAL DISINTEGRATING TAB 5MG PO SCH (20:26)
[2024-11-27 20:34] VITALS: O2SAT 97
[2024-11-28 00:48] LABS: CREATININE FOR GFR 1.84 MG/DL (0.55-1.30); GLOMERULAR FILTRATION RATE 27.8 (>32); POTASSIUM SERUM 3.7 MMOL/L (3.5-5.1)
[2024-11-28 03:23] VITALS: BP 133/58; TEMP 96.8; O2SAT 97
[2024-11-28] MEDS: MIRALAX *UNIT DOSE* 17GM PACKET PO SCH (08:41)
[2024-11-28] MEDS: CitaloPRAM (CeleXA) 10 MG TABLET PO SCH (08:42)
[2024-11-28] MEDS: predniSONE 20 MG TAB PO SCH (08:42)
[2024-11-28] MEDS: SENOKOT S TAB PO SCH (08:42)
[2024-11-28 11:45] VITALS: BP 132/58; TEMP 96.8; O2SAT 98
[2024-11-28] MEDS: FERRIC CARBOXYMALTOSE INJ 750 MG, VIAL MATE ADAPTER 1 EACH in NS 100 ML IV ONE (13:34)
[2024-11-28] MEDS: ACETAMINOPHEN 325 MG TAB PO PRN (15:52)
[2024-11-28 20:30] VITALS: BP 105/58; TEMP 96.8; O2SAT 97
[2024-11-29 03:42] VITALS: BP 116/54; TEMP 97; O2SAT 97
[2024-11-29 06:34] LABS: CALCIUM LEVEL 7.8 MG/DL (8.3-10.6); CREATININE FOR GFR 1.61 MG/DL (0.55-1.30); GLOMERULAR FILTRATION RATE 32.5 (>32); MAGNESIUM LEVEL 2.2 MG/DL (1.8-2.4); POTASSIUM SERUM 3.6 MMOL/L (3.5-5.1)
[2024-11-29] MEDS: PANTOPRAZOLE 40MG TAB (PROTONIX) PO SCH (09:25)
[2024-11-29 12:00] VITALS: BP 98/52; TEMP 97; O2SAT 96
[2024-11-29] MEDS: D5W 1,000 ML IV ONE (12:45)
[2024-11-29 22:00] VITALS: BP 130/65; TEMP 97.5; O2SAT 95
[2024-11-30 05:18] VITALS: BP 135/59; TEMP 97.5; O2SAT 98
[2024-11-30 08:17] LABS: HEMATOCRIT 34.1 % (36.0-47.0); HEMOGLOBIN 10.9 g/dl (12.0-15.5); MEAN CORPUSCULAR HEMOGLOBIN 36.2 pg (27.0-33.0); MEAN CORPUSCULAR VOLUME 113.3 fl (80.0-96.0); PLATELET COUNT, AUTOMATED 174 10^3/uL (150-450); RED BLOOD COUNT 3.01 10^6/uL (4.00-5.40); WHITE BLOOD COUNT 10.3 10^3/uL (4.0-10.0)
[2024-11-30 08:48] LABS: CALCIUM LEVEL 7.5 MG/DL (8.3-10.6); CREATININE FOR GFR 1.43 MG/DL (0.55-1.30); GLOMERULAR FILTRATION RATE 37.2 (>32); POTASSIUM SERUM 3.7 MMOL/L (3.5-5.1)
[2024-11-30] MEDS: predniSONE 10MG TAB PO SCH (09:59)
[2024-11-30 12:00] VITALS: BP 130/72; TEMP 97.9; O2SAT 91
[2024-11-30] MEDS: POTASSIUM CHLORIDE 10% LIQ 20MEQ/15ML UDC PO ONE (12:02)
[2024-11-30] MEDS: D5W 1,000 ML IV SCH (12:03)
[2024-11-30 20:00] VITALS: BP 127/69; TEMP 97; O2SAT 96
[2024-11-30] MEDS: IPRATROPIUM 0.5MG/ALBUTEROL 2.5MG INH SOL UD 3ML (DUONEB) NEB PRN (20:42)
[2024-11-30] MEDS: LORazepam 0.5 MG TAB PO PRN (20:52)
[2024-12-01 04:00] VITALS: BP 104/55; TEMP 96.8; O2SAT 95
[2024-12-01 09:05] VITALS: BP 110/56
[2024-12-01 10:53] LABS: CALCIUM LEVEL 7.6 MG/DL (8.3-10.6); CREATININE FOR GFR 1.47 MG/DL (0.55-1.30); GLOMERULAR FILTRATION RATE 36.1 (>32); POTASSIUM SERUM 3.7 MMOL/L (3.5-5.1)
[2024-12-01 12:00] VITALS: BP 108/58; TEMP 97; O2SAT 96
[2024-12-01] MEDS ORDERED: TORS20TA2 PO (12:15)
[2024-12-01] MEDS ORDERED: METO1TAB32 PO (12:15)
[2024-12-01] MEDS ORDERED: PRED10TA2 PO (12:15)
[2024-12-01] MEDS ORDERED: ELIQ2.5T PO (12:15)
== END 2024-12-01 12:49 | DRG 915 ==
LOC: EDBD 10:20 → M ED 10:20 → EEVIPCON 11:30 → M ED INP 11:30 → M ED 11:40 → M ICU 13:14 → M MSPAV 11-19 15:17
PROVIDERS: ADMIT Internal Medicine Critical Care Medicine; ATTEND Student in an Organized Health Care Education/Training Program
PROC: 5A1945Z Respiratory Ventilation, 24-96 Consecutive Hours (ICD-10-PCS; 2024-11-17)
PROC: 0BH17EZ Insertion of Endotracheal Airway into Trachea, Via Natural or Artificial Opening (ICD-10-PCS; principal; 2024-11-17 10:45)
PROC: B246ZZZ Ultrasonography of Right and Left Heart (ICD-10-PCS; 2024-11-20)
DX: T78.3XXA Angioneurotic edema, initial encounter (principal); G93.41 Metabolic encephalopathy; J96.21 Acute and chronic respiratory failure with hypoxia; I50.22 Chronic systolic (congestive) heart failure; N39.0 Urinary tract infection, site not specified; I13.0 Hypertensive heart and chronic kidney disease with heart failure and stage 1 through stage 4 chronic kidney disease, or unspecified chronic kidney disease; N17.9 Acute kidney failure, unspecified; E87.0 Hyperosmolality and hypernatremia; N18.4 Chronic kidney disease, stage 4 (severe); T46.4X5A Adverse effect of angiotensin-converting-enzyme inhibitors, initial encounter; J44.9 Chronic obstructive pulmonary disease, unspecified; D63.1 Anemia in chronic kidney disease; E03.9 Hypothyroidism, unspecified; M10.9 Gout, unspecified; F41.9 Anxiety disorder, unspecified; F32.A Depression, unspecified; Z66 Do not resuscitate; B96.1 Klebsiella pneumoniae [K. pneumoniae] as the cause of diseases classified elsewhere; K59.00 Constipation, unspecified; I25.10 Atherosclerotic heart disease of native coronary artery without angina pectoris; I25.5 Ischemic cardiomyopathy; I48.91 Unspecified atrial fibrillation; I27.20 Pulmonary hypertension, unspecified; G47.33 Obstructive sleep apnea (adult) (pediatric); I25.2 Old myocardial infarction; E87.6 Hypokalemia; R13.10 Dysphagia, unspecified; Z90.79 Acquired absence of other genital organ(s); Z87.891 Personal history of nicotine dependence; Z79.82 Long term (current) use of aspirin; Z79.890 Hormone replacement therapy; Z79.899 Other long term (current) drug therapy; Z88.8 Allergy status to other drugs, medicaments and biological substances; Z91.041 Radiographic dye allergy status; Z99.81 Dependence on supplemental oxygen; Z86.718 Personal history of other venous thrombosis and embolism; Z95.828 Presence of other vascular implants and grafts; Z86.73 Personal history of transient ischemic attack (TIA), and cerebral infarction without residual deficits